=== PATIENT | male | born 1960 | race Caucasian/White ===

== ENCOUNTER 2020-01-26 09:12 | Emergency (ER) | payer OTHER, SELFPAY ==
[2020-01-26 09:17] VITALS: BP 142/75; PULSE 69; RESP 18; TEMP 37; O2SAT 99; BMI 25.8
--- NOTE | 2020-01-26 09:37 | ED.ABDPAIN ---
HPI - Abdominal Pain General Chief Complaint: Abdominal Pain Stated Complaint: abd pain Time Seen by Provider: 01/26/20 09:20 Source: patient Mode of arrival: ambulatory Limitations: no limitations History of Present Illness HPI narrative: 59-year-old male with a past medical history of hypertension, hyperlipidemia, renal colic, NM, substance abuse on suboxone here with right-sided abdominal pain for 2 days. No nausea, vomiting, diarrhea, urinary symptoms, fevers or chills. MD elicited complaint: abdominal pain Pertinent past history: kidney stones Onset (ago): day(s) Pain Consistency: constant Location: RUQ and RLQ Severity: mild Quality: sharp Radiation: none Migration to: no migration Exacerbating factors: nothing Relieving factors: nothing Associated symptoms: denies other symptoms Related Data Previous Rx's Medication Instructions Recorded hydrocodone-acetaminophen 1 tab PO Q8H PRN #8 tab 01/26/20 tamsulosin [Flomax] 0.4 mg PO DAILY #20 cap 01/26/20 Allergies Allergy/AdvReac Type Severity Reaction Status Date / Time ibuprofen [IBUPROFEN] Allergy Unknown UPSET Verified 01/26/20 09:38 STOMACH Review of Systems Review of Systems Yes all other systems are reviewed and are negative Constitutional: Reports no additional constitutional complaints, Denies body ache(s), Denies chills, Denies fever(s), Denies headache(s) and Denies weakness Eyes: Reports no additional eye complaints and Denies change in vision Reports system reviewed and no additional complaints, except as documented, Denies dizziness, Denies headache(s), Denies nasal congestion, Denies nasal discharge and Denies neck pain Cardiovascular: Reports no additional cardiovascular complaints, Denies chest pain, Denies leg edema and Denies dyspnea Respiratory: Reports no additional respiratory complaints, Denies cough and Denies dyspnea Gastrointestinal: Reports no additional gastrointestinal complaints, Reports abdominal pain, Denies diarrhea, Denies nausea and Denies vomiting Genitourinary: Denies urinary incontinence Musculoskeletal: Reports no additional musculoskeletal complaints, Denies back pain, Denies arthralgias, Denies joint swelling, Denies neck pain, Denies numbness and Denies tingling Skin/Breast: Reports system reviewed and no additional complaints, except as docu and Denies rash Reports system reviewed and no additional complaints, except as documented, Denies Abnormal speech present, Denies dizziness, Denies headache(s), Denies numbness, Denies tingling and Denies weakness Physical Exam Vital Signs: Vital Signs: Last Vital Signs Temp 98.1 F 01/26/20 11:49 Pulse 61 01/26/20 11:49 Resp 16 01/26/20 11:49 BP 125/79 01/26/20 11:49 Pulse Ox 98 01/26/20 11:49 Body Mass Index 25.8 Const: General: cooperative, healthy appearing, comfortable and no acute distress Orientation/consciousness: patient oriented x3 Limitations: no limitations HENMT: Head: Yes normal to inspection Ears: hearing grossly normal bilaterally General nose exam: Normal external nose present Face and sinus: Yes normal facial exam Mouth: Normal oral and palatal mucosa present Throat: Yes posterior oropharynx normal Eyes: General: appearance normal, both eyes and all related structures Pupils: Equal, round and reactive pupils present Neck: Neck: Yes normal visual inspection Chest: Chest palpation & inspection: normal inspection of the chest Resp: Effort & Inspection: normal respiratory effort Auscultation: clear to auscultation bilaterally Cardio: Rate: regular rate Rhythm: regular rhythm Peripheral pulses: Peripheral pulses 2+ throughout GI: Inspection: Yes normal to inspection Palpation (GI): Soft to palpation, Tenderness to palpation present (GI) ( mild tenderness to the right upper and right lower quadrant ) with no rebound tenderness and no guarding Auscultation: normal bowel sounds Back/Spine/Pelvis: Thoracic/Lumbar Spine: thoracic and lumbar spine normal to inspection Skin: General skin exam: no rashes or lesions noted Neuro: General: patient oriented x3, no focal motor deficits and normal sensation to monofilament Cranial nerves: Yes Equal, round and reactive pupils present Cognition (Neuro): normal cognition Speech: No Abnormal speech present Gait exam (Neuro): Normal gait present Motor exam (neuro): 5/5 motor strength present throughout Extrem: General: Yes normal to inspection Course Course Course Narrative: 59 year-old male here with right upper and right lower quadrant abdominal pain since last evening with no other associated symptoms. Will check labs, UA. Place PIV and give normal saline bolus and IV analgesia. Patient will likely need additional imaging. 1230- CT shows 2 right distal ureteral stones 2 x 4 mm. Mild right distal ureteral dilation. Labs reviewed and unremarkable. UA shows no signs of infection. Pain is currently controlled. Will discharge patient home with Urology follow-up, recommend increase fluids, start Flomax with small course of Vicodin. Discussed with patient that he should hold his Suboxone and call his clinic to inform them what is going on. reviewed worrisome signs and symptoms when to return to the emergency department. Comfortable discharge home. MDM - Abdominal Pain MDM Narrative Medical decision making narrative: Renal colic, cholecystitis, gallstones, acute appendicitis Medical Records Attestation: I reviewed the patient's medical records. Lab Data Attestation: I reviewed the patient's lab results. Result diagrams: 01/26/20 09:41 01/26/20 09:40 Labs: Lab Results 01/26/20 01/26/20 01/26/20 Range/Units 09:40 09:40 09:41 WBC 7.6 (4.8-10.8) X10*3/uL RBC 4.33 L (4.60-5.80) X10*6/uL Hgb 13.6 L (14.0-18.0) g/dl Hct 41.2 L (42-52) % MCV 95.2 (80-98) fL MCH 31.4 (27.0-33.0) pg MCHC 33.0 (31.0-36.0) g/dl RDW 12.9 (11.0-16.0) % Plt Count 155 L (160-400) X10*3/uL MPV 11.5 (9.4-12.4) fL Immature Gran % (Auto) 0.4 (0.0-0.4) % Neut % (Auto) 59.0 (45-73) % Lymph % (Auto) 27.0 (20-40) % Glasscock % (Auto) 10.4 (2-11) % Eos % (Auto) 2.8 (0-4) % Baso % (Auto) 0.4 (0-2) % Lymph # (Auto) 2.1 (1.2-4.9) X10*3/uL Glasscock # (Auto) 0.8 (0.1-1.2) X10*3/uL Eos # (Auto) 0.2 (0.0-0.4) X10*3/uL Baso # (Auto) 0.0 (0.0-0.2) X10*3/uL Abs Immat Gran (auto) 0.03 (0.00-0.03) X10*3/uL Absolute Neuts (auto) 4.5 (2.0-8.3) X10*3/uL Absolute Nucleated RBC 0.000 (0.0-0.012) X10*3/uL Nucleated RBC % (auto) 0.0 (0.0-0.2) /100WBC PT 11.6 (10.8-13.0) SEC INR 1.0 (0.9-1.1) Sodium 138 (135-145) mmol/L Potassium 4.7 (3.3-5.1) mmol/l Chloride 104 (96-108) mmol/L Carbon Dioxide 26 (22-29) mmol/L Anion Gap 13 (12-20) BUN 19 H (9-16) mg/dL Creatinine 0.96 (0.5-1.4) mg/dL Estim Creat Clear Calc 84.4 Estimated GFR > 60 Random Glucose 110 (60-115) mg/dL Calcium 8.7 (8.4-10.2) mg/dL Magnesium 1.8 (1.6-2.6) mg/dL Total Bilirubin 0.4 (0.0-1.0) mg/dL Direct Bilirubin 0.2 (0.0-0.5) mg/dL AST 14 (5-37) U/L ALT 15 (0-40) U/L Alkaline Phosphatase 83 (39-117) U/L Total Protein 6.2 L (6.5-8.0) g/dL Albumin 4.0 (3.5-5.0) g/dL Lipase 84 H (8-78) U/L Urine Color Urine Appearance Urine pH (5.0-8.0) Ur Specific [place] (1.005-1.025) Urine Protein (NEG-TRACE) MG/DL Urine Glucose (UA) (NEG) MG/DL Urine Ketones (NEG) MG/DL Urine Blood (NEG) Urine Nitrite (NEG) Ur Leukocyte Esterase (NEG) Urine RBC (0) /HPF Urine WBC (0-4) /HPF Ur Squamous Epith Cells /LPF Urine Crystals /LPF Urine Bacteria /LPF 01/26/20 Range/Units 10:06 WBC (4.8-10.8) X10*3/uL RBC (4.60-5.80) X10*6/uL Hgb (14.0-18.0) g/dl Hct (42-52) % MCV (80-98) fL MCH (27.0-33.0) pg MCHC (31.0-36.0) g/dl RDW (11.0-16.0) % Plt Count (160-400) X10*3/uL MPV (9.4-12.4) fL Immature Gran % (Auto) (0.0-0.4) % Neut % (Auto) (45-73) % Lymph % (Auto) (20-40) % Glasscock % (Auto) (2-11) % Eos % (Auto) (0-4) % Baso % (Auto) (0-2) % Lymph # (Auto) (1.2-4.9) X10*3/uL Glasscock # (Auto) (0.1-1.2) X10*3/uL Eos # (Auto) (0.0-0.4) X10*3/uL Baso # (Auto) (0.0-0.2) X10*3/uL Abs Immat Gran (auto) (0.00-0.03) X10*3/uL Absolute Neuts (auto) (2.0-8.3) X10*3/uL Absolute Nucleated RBC (0.0-0.012) X10*3/uL Nucleated RBC % (auto) (0.0-0.2) /100WBC PT (10.8-13.0) SEC INR (0.9-1.1) Sodium (135-145) mmol/L Potassium (3.3-5.1) mmol/l Chloride (96-108) mmol/L Carbon Dioxide (22-29) mmol/L Anion Gap (12-20) BUN (9-16) mg/dL Creatinine (0.5-1.4) mg/dL Estim Creat Clear Calc Estimated GFR Random Glucose (60-115) mg/dL Calcium (8.4-10.2) mg/dL Magnesium (1.6-2.6) mg/dL Total Bilirubin (0.0-1.0) mg/dL Direct Bilirubin (0.0-0.5) mg/dL AST (5-37) U/L ALT (0-40) U/L Alkaline Phosphatase (39-117) U/L Total Protein (6.5-8.0) g/dL Albumin (3.5-5.0) g/dL Lipase (8-78) U/L Urine Color YELLOW Urine Appearance CLEAR Urine pH 5.5 (5.0-8.0) Ur Specific [place] 1.025 (1.005-1.025) Urine Protein NEG (NEG-TRACE) MG/DL Urine Glucose (UA) NEG (NEG) MG/DL Urine Ketones NEG (NEG) MG/DL Urine Blood 2+ H (NEG) Urine Nitrite NEG (NEG) Ur Leukocyte Esterase NEG (NEG) Urine RBC 5-9 H (0) /HPF Urine WBC 0-2 (0-4) /HPF Ur Squamous Epith Cells NONE /LPF Urine Crystals TRACE /LPF Urine Bacteria NONE /LPF Imaging Data CT scan - abdomen: Radiologist's impression: EXAMINATION: CT ABDOMEN AND PELVIS WITHOUT CONTRAST CLINICAL INFORMATION: Hematuria. Right-sided abdominal pain. COMPARISON: None TECHNIQUE: Multidetector volumetric imaging was performed from the superior aspect of the liver through the pubic symphysis. Sagittal and coronal reformatted images were obtained on the technologist's workstation. This CT examination was performed using dose optimization techniques as appropriate, variously including the following: *Automated exposure control *Adjustment of mA and/or kV according to patient size (this includes techniques or standardized protocols for targeted exams where dose is matched to indication/reason for exam; i.e. extremities or head) *Use of iterative reconstruction technique DLP: 668 mGy-cm FINDINGS: LUNG BASES: The visualized lung bases are unremarkable. LIVER, GALLBLADDER, AND BILIARY TREE: The liver is normal in size, shape, and attenuation. No focal hepatic lesion or biliary ductal dilatation is present. The gallbladder is unremarkable with no evidence of radiopaque gallstones, gallbladder wall thickening, or obvious pericholecystic inflammatory changes. PANCREAS: Unremarkable. SPLEEN: Unremarkable. ADRENAL GLANDS: Unremarkable. KIDNEYS AND URETERS: There are small bilateral renal stones. Largest stone measures 4 mm in the lower pole of the right kidney. No hydronephrosis is seen. There is mild right distal ureteral dilatation. There are 2 adjacent stones seen in the right distal ureter measuring 2 x 4 mm. No left ureteral stone is seen. BLADDER: Unremarkable. GASTROINTESTINAL TRACT: There is diverticulosis of the colon. The small and large bowel are otherwise unremarkable. The appendix is unremarkable. ABDOMINAL WALL: There is an umbilical hernia containing fat. LYMPH NODES: Normal. VASCULAR: Unremarkable. PELVIC VISCERA: The prostate gland is slightly enlarged measuring 4 1/2 OSSEOUS STRUCTURES: There are degenerative changes of the spine. CT/CT abdomen pelvis wo con IMPRESSION: Bilateral small renal stones, largest measuring 4 mm in the lower pole of the right kidney. Two adjacent right distal ureteral stones measuring 2 x 4 mm. Mild right distal ureteral dilatation. No hydronephrosis. Mild diverticulosis of the colon. Discharge Plan Discharge Clinical Impression: Renal colic on right side Patient Disposition: Home, Self-Care Instructions: Renal Colic (ED) Additional Instructions: Drink lots of fluids Follow-up with the urologist in a few days if your pain continues We are prescribing you a very small amount of narcotic pain medicine. Do not take this with her Suboxone. Please call your Suboxone clinic and let them know what is going on. Prescriptions: New tamsulosin [Flomax] 0.4 mg capsule 0.4 mg PO DAILY Qty: 20 RF: 0 hydrocodone-acetaminophen 5-300 mg tablet 1 tab PO Q8H PRN (Reason: pain) Qty: 8 RF: 0 Referrals: Meng Osorio III, MD [Physician] - 2 days Interventions: ED Discharge Assessment Last Done: 01/26/20 12:44 Discharge Date/Time: 01/26/20 12:57 [facility] Past Medical History Attestation statement: The following information was validated with the patient. Source: obtained from family and nursing notes reviewed Medical History (Updated 01/26/20 @ 12:29 by Violetta Chapman NP) High cholesterol Hypertension Myocardial infarct Renal colic Substance abuse Social History Social History Alcohol intake: current Alcohol intake frequency: 0-2 drinks per day Alcohol type: beer Smoking Status: Current some day smoker Use of substances other than those prescribed or required for medical reasons: No Advance Directives: No Advance Directives Information Provided: Yes
[2020-01-26] MEDS: Morphine Sulfate 4 MG/ML CARTRIDGE IVPUSH (09:38)
[2020-01-26] MEDS: 0.9 % Sodium Chloride 1,000 ML 999 ML IV (09:39)
[2020-01-26 09:45] LABS: MANUAL DIFF FLAG NO
[2020-01-26 09:48] LABS: Basophils Percent Auto 0.4 % (0-2); Eosinophils Absolute Auto 0.2 X10*3/uL (0.0-0.4); Eosinophils Percent Auto 2.8 % (0-4); Hematocrit 41.2 % (42-52); Hemoglobin 13.6 g/dl (14.0-18.0); Imm Gran Abs Auto 0.03 X10*3/uL (0.00-0.03); Imm Gran Pct Auto 0.4 % (0.0-0.4); Lymphocytes Absolute Auto 2.1 X10*3/uL (1.2-4.9); Mean Corpuscular Hemoglobin 31.4 pg (27.0-33.0); Mean Corpuscular Volume 95.2 fL (80-98); Mean Platelet Volume 11.5 fL (9.4-12.4); Monocytes Absolute Auto 0.8 X10*3/uL (0.1-1.2); Monocytes Percent Auto 10.4 % (2-11); Neutrophils Absolute Auto 4.5 X10*3/uL (2.0-8.3); Platelet Count 155 X10*3/uL (160-400); Red Blood Count 4.33 X10*6/uL (4.60-5.80); Red Cell Distribution Width 12.9 % (11.0-16.0); White Blood Count 7.6 X10*3/uL (4.8-10.8)
[2020-01-26 09:54] LABS: Prothrombin Time 11.6 SEC (10.8-13.0)
[2020-01-26 10:11] LABS: Glucose Urine UA NEG (NEG); Leukocyte Esterase Urine NEG (NEG); Nitrite Urine NEG (NEG); PH 5.5 (5.0-8.0); Specific Gravity - Urine 1.025 (1.005-1.025); Urine Blood 2+ (NEG); Urine Ketones NEG (NEG); Urine Protein NEG (NEG-TRACE)
[2020-01-26 10:12] LABS: Appearance Urine CLEAR; Color Urine YELLOW
--- NOTE | 2020-01-26 10:17 | CT_ITS ---
EXAMINATION: CT ABDOMEN AND PELVIS WITHOUT CONTRAST CLINICAL INFORMATION: Hematuria. Right-sided abdominal pain. COMPARISON: None TECHNIQUE: Multidetector volumetric imaging was performed from the superior aspect of the liver through the pubic symphysis. Sagittal and coronal reformatted images were obtained on the technologist's workstation. This CT examination was performed using dose optimization techniques as appropriate, variously including the following: *Automated exposure control *Adjustment of mA and/or kV according to patient size (this includes techniques or standardized protocols for targeted exams where dose is matched to indication/reason for exam; i.e. extremities or head) *Use of iterative reconstruction technique DLP: 668 mGy-cm FINDINGS: LUNG BASES: The visualized lung bases are unremarkable. LIVER, GALLBLADDER, AND BILIARY TREE: The liver is normal in size, shape, and attenuation. No focal hepatic lesion or biliary ductal dilatation is present. The gallbladder is unremarkable with no evidence of radiopaque gallstones, gallbladder wall thickening, or obvious pericholecystic inflammatory changes. PANCREAS: Unremarkable. SPLEEN: Unremarkable. ADRENAL GLANDS: Unremarkable. KIDNEYS AND URETERS: There are small bilateral renal stones. Largest stone measures 4 mm in the lower pole of the right kidney. No hydronephrosis is seen. There is mild right distal ureteral dilatation. There are 2 adjacent stones seen in the right distal ureter measuring 2 x 4 mm. No left ureteral stone is seen. BLADDER: Unremarkable. GASTROINTESTINAL TRACT: There is diverticulosis of the colon. The small and large bowel are otherwise unremarkable. The appendix is unremarkable. ABDOMINAL WALL: There is an umbilical hernia containing fat. LYMPH NODES: Normal. VASCULAR: Unremarkable. PELVIC VISCERA: The prostate gland is slightly enlarged measuring 4 1/2 OSSEOUS STRUCTURES: There are degenerative changes of the spine. CT/CT abdomen pelvis wo con IMPRESSION: Bilateral small renal stones, largest measuring 4 mm in the lower pole of the right kidney. Two adjacent right distal ureteral stones measuring 2 x 4 mm. Mild right distal ureteral dilatation. No hydronephrosis. Mild diverticulosis of the colon.
[2020-01-26 10:21] LABS: Urine Talc Crystals TRACE /LPF; WBC Urine 0-2 /HPF (0-4)
[2020-01-26 10:22] LABS: Alanine Aminotransferase 15 U/L (0-40); Alkaline Phosphatase 83 U/L (39-117); Anion Gap 13 (12-20); Aspartate Amino Transferase 14 U/L (5-37); Bilirubin Direct 0.2 mg/dL (0.0-0.5); Bilirubin Total 0.4 mg/dL (0.0-1.0); Blood Urea Nitrogen 19 mg/dL (9-16); Calcium 8.7 mg/dL (8.4-10.2); Carbon Dioxide 26 mmol/L (22-29); Chloride 104 mmol/L (96-108); Creatinine Clr Calc Pharmacy 84.4; Estimated Glomerular Filt Rate > 60; Glucose Random 110 mg/dL (60-115); Magnesium 1.8 mg/dL (1.6-2.6); Potassium 4.7 mmol/l (3.3-5.1); Sodium 138 mmol/L (135-145); Total Protein 6.2 g/dL (6.5-8.0)
[2020-01-26 10:36] LABS: Lipase 84 U/L (8-78)
[2020-01-26 11:49] VITALS: BP 125/79; PULSE 61; RESP 16; TEMP 36.7; O2SAT 98
--- NOTE | 2020-01-26 11:50 | PC.NURSE ---
pt c/o 8/10 r flank pain. worse with movement. no active vomiting. skin pwd. no grimace. awaitsct reading. pt has been ambulatory, steady on feet. is aware of npo status.
== END 2020-01-26 12:57 | disposition home or self-care (01) ==
PROVIDERS: Nurse Practitioner Family; Emergency Provider Emergency Medicine; PCP Internal Medicine
DX: N23 Unspecified renal colic (principal); I10 Essential (primary) hypertension; F17.200 Nicotine dependence, unspecified, uncomplicated; Z71.6 Tobacco abuse counseling; Z79.899 Other long term (current) drug therapy
CPT/HCPCS: 36415; 74176; 80048; 80076; 81001; 83690; 83735; 85025; 85610; 96361; 96374; 99284; J2270

== ENCOUNTER 2020-11-18 09:58 | Emergency (ER) | payer OTHER, SELFPAY ==
[2020-11-18 10:21] VITALS: BP 136/73; PULSE 66; RESP 16; TEMP 36.6; O2SAT 96; BMI 31.9
--- NOTE | 2020-11-18 10:44 | ED_ITS ---
HPI - Eye Problem General Chief complaint: Eye Problems Stated complaint: eye problem Time Seen by Provider: 11/18/20 10:20 Source: patient Limitations: no limitations History of Present Illness HPI Narrative: Patient states he was working outside yesterday moving some brush and some sawdust got into his left eye. Patient was wearing protective eye wear at that time. Patient now having pain in his left eye. Patient states the eye is irritated and he is unsure if there was any foreign body in there and very watery. No other complaints this time. Symptoms mild to moderate. Pain is 6/10. Related Data Previous Rx's Medication Instructions Recorded hydrocodone 5 mg-acetaminophen 300 1 tab PO Q8H PRN #8 tab 01/26/20 mg tablet tamsulosin 0.4 mg capsule (Flomax) 0.4 mg PO DAILY #20 cap 01/26/20 sulfacetamide sodium 10 % eye 2 drp OPHTHALMIC-LEFT Q4H 5 Days 11/18/20 drops (Bleph-10) #5 ml Allergies Allergy/AdvReac Type Severity Reaction Status Date / Time ibuprofen [IBUPROFEN] Allergy Unknown UPSET Verified 01/26/20 09:38 STOMACH Review of Systems Constitutional: Constitutional: Denies chills and Denies fever(s) Eyes: Eyes: Denies blurry vision, Denies diplopia, Reports eye discharge, Denies floaters, Reports irritation and Denies loss of vision ENT: Denies vertigo, Denies dizziness, Denies nasal congestion and Denies sore throat Gastrointestinal: Gastrointestinal: Denies nausea and Denies vomiting Neurologic: Denies vertigo, Denies dizziness and Denies loss of vision [facility] Past Medical History Attestation statement: The following information was validated with the patient. Medical History High cholesterol Hypertension Myocardial infarct Renal colic Substance abuse Social History Social History Alcohol intake: current Alcohol intake frequency: 0-2 drinks per day Alcohol type: beer Advance Directives: No Advance Directives Information Provided: No Physical Exam Vital Signs: Vital Signs: Last Vital Signs Temp 97.9 F 11/18/20 10:21 Pulse 66 11/18/20 10:21 Resp 16 11/18/20 10:21 BP 136/73 09/02/21 10:21 Pulse Ox 96 11/18/20 10:21 Body Mass Index 31.9 vital signs have been reviewed as normal and appeared to be correct. Blood pressure normal. Heart rate normal. Respiration rate normal. Temperature normal. Oxygen saturation normal. Appearance: Alert. Oriented X3. No acute distress. Head: Normal external exam. Normocephalic. Atraumatic. Eyes: PERRLA. EOMI. Left eye sclera slightly injected no foreign bodies visualized. ENT: Pharynx normal. Uvula midline. Moist mucous membranes. CVS: Heart regular rate and rhythm no murmurs and rubs Respiratory: Breath sounds are clear to auscultation bilaterally. No accessory muscle use noted. Back: Full range of motion noted. Skin: Skin warm and dry. Normal skin color. Normal skin turgor. No rashes/les ions/lacerations noted. Extremities: No lower extremity edema. Extremities exhibit normal range of motion. Extremities nontender. Neuro: Oriented X 3. No motor deficit. No sensory deficit. Reflexes normal. Course Course Course Narrative: Left eye corneal abrasion Left eye conjunctivitis Left eye foreign body Positive fluorescein stain at 9:00 a.m. corneal abrasion to the left eye is noted with the Wood's lamp fluorescein Patient advised follow-up with Ophthalmology symptoms continue patient placed on Bleph 10 Discharge Plan Discharge Clinical Impression: Corneal abrasion Patient Disposition: Home, Self-Care Instructions: Corneal Abrasion (ED) Additional Instructions: If symptoms continue follow-up with ophthalmology Medication as directed Take [id number] Tylenol for pain. Prescriptions: New sulfacetamide sodium [Bleph-10] 10 % drops 2 drp ophthalmic-Left Q4H 5 Days Qty: 5 RF: 0 No Action tamsulosin [Flomax] 0.4 mg capsule 0.4 mg PO DAILY Qty: 20 RF: 0 hydrocodone-acetaminophen 5-300 mg tablet 1 tab PO Q8H PRN (Reason: pain) Qty: 8 RF: 0 Referrals: Reilly Flores [Physician] - 2 days (Left-sided corneal abrasion)
[2020-11-18] MEDS: Fluorescein Sodium STRIP 1 STRIP EYE-BOTH (10:53)
[2020-11-18] MEDS: Tetracaine HCl/PF 0.5% Oph Sol 4 ML DROPS 3 DROP EYE-BOTH (10:53)
== END 2020-11-18 11:03 | disposition home or self-care (01) ==
PROVIDERS: Emergency Provider Emergency Medicine; PCP Internal Medicine
DX: S05.52XA Penetrating wound with foreign body of left eyeball, initial encounter (principal); T15.02XA Foreign body in cornea, left eye, initial encounter; Y33.XXXA Other specified events, undetermined intent, initial encounter; Y93.9 Activity, unspecified; Y92.9 Unspecified place or not applicable; Y99.9 Unspecified external cause status
CPT/HCPCS: 65222; 99283

== ENCOUNTER 2023-05-12 20:17 | Emergency (ER) | payer OTHER, SELFPAY ==
[2023-05-12] VITALS (8 sets, daily range): BP systolic 126–164; BP diastolic 70–98; PULSE 75–88; RESP 14–18; TEMP 36.7; O2SAT 93–98; BMI 41.9
--- NOTE | 2023-05-12 | ECG_ITS ---
Test Reason : CP Blood Pressure : / mmHG Vent. Rate : 078 BPM Atrial Rate : 078 BPM P-R Int : 158 ms QRS Dur : 088 ms QT Int : 390 ms P-R-T Axes : 047 001 -14 degrees QTc Int : 444 ms Normal sinus rhythm Nonspecific ST elevation high lateral leads T-wave inversion in Inferior leads Nonspecific ST abnormality When compared with ECG of 12-MAY-2023 20:27, ST less depressed in Inferior leads Referred By: Erica Escalante Electronically Signed By:ALEXIS ALAS MD
--- NOTE | ~2023-05-12 | XR_ITS ---
EXAMINATION: XR CHEST CLINICAL INFORMATION: Chest pain COMPARISON: Chest radiograph from 09/02/2011 TECHNIQUE: Frontal view of the chest was obtained. FINDINGS: Bilateral low lung volumes. Interstitial prominence which may reflect increased pulmonary vasculature versus infectious/inflammatory etiology. No pneumothorax. Trachea is midline. Cardiac mediastinal silhouette is not enlarged. No large pleural effusion. Osseous structures are intact. Soft tissues are unremarkable. XR/XR chest 1V IMPRESSION: 1. Bilateral low lung volumes. 2. Interstitial prominence which may reflect increased pulmonary vasculature versus infectious/inflammatory etiology.
--- NOTE | 2023-05-12 20:34 | ECG_ITS ---
Test Reason : CP Blood Pressure : / mmHG Vent. Rate : 076 BPM Atrial Rate : 076 BPM P-R Int : 160 ms QRS Dur : 090 ms QT Int : 390 ms P-R-T Axes : 036 000 -16 degrees QTc Int : 438 ms Normal sinus rhythm Nonspecific ST elevation Nonspecific ST depression When compared with ECG of 12-MAY-2023 20:43, No significant change was found Referred By: Erica Escalante Electronically Signed By:ALEXIS ALAS MD
--- NOTE | 2023-05-12 20:44 | ED.CHESTPAIN ---
HPI - Chest Pain General Chief Complaint: Chest Pain Stated Complaint: Chest Heaviness going down both arms Time Seen by Provider: 05/12/23 20:27 Source: patient and old records reviewed Mode of arrival: EMS Limitations: other (poor historian has changed the timeline of his drug use 3 times since arrival) History of Present Illness HPI narrative: 63 yo male with PMH of DM, HTN, [place] s/p PCI and stent 12 years ago at [facility] he doesn't remember much about it intermittently takes aspirin daily. He notes he has had central chest pain and heaviness radiating down both arms x 1 hour - he initially stated he sniffed cocaine last night then 5am and then admits it was this afternoon with heroin he thinks at 2pm. He was given aspirin 324 by EMS prior to arrival. He has not seen a area plant manager in years. He states that the pain is much better than it was when he arrived. He has also been using an OTC medication that contains ephedrine and has been sniffing that. He denies any viagra or cialis. Took his statin today. MD complaint: chest pain Pertinent past history: coronary artery disease and prior [place] Onset (ago): hour(s) (1) Timing of current episode: constant Prior episodes: No Onset: during rest Pain location: substernal Pain radiation: right arm and left arm Severity: moderate Pain scale (0-10): 6 Quality: heaviness Relieving factors: nothing Exacerbating factors: exertion Context: other (sniffed heroin and cocaine) Associated symptoms: nausea, diaphoresis and dyspnea Treatment prior to arrival: aspirin (324mg of aspirin with EMS) Related Data Previous Rx's Medication Instructions Recorded hydrocodone 5 mg-acetaminophen 300 1 tab PO Q8H PRN pain #8 tabs 01/26/20 mg tablet tamsulosin 0.4 mg capsule (Flomax) 0.4 mg PO DAILY #20 caps 01/26/20 sulfacetamide sodium 10 % eye 2 drp ophthalmic-Left Q4H 5 days 11/18/20 drops (Bleph-10) #5 mL Allergies Allergy/AdvReac Type Severity Reaction Status Date / Time No Known Allergies Allergy Verified 05/12/23 20:34 Review of Systems Review of Systems: Constitutional : No Weight loss, No Fever, No Chills ENT/Mouth : No sore throat, No Rhinorrhea Eyes: No Eye Pain, No Swelling Cardiovascular : pos Chest Pain, pos SOB, no Dyspnea on Exertion, No Orthopnea, No Edema, No Palpitations Respiratory : No Cough, No Sputum Gastrointestinal : no Nausea, No Vomiting, No Diarrhea, No abdominal Pain, No Hematochezia, No Melena Genitourinary : No Dysuria, No Urinary Frequency Musculoskeletal : No joint pain, No Myalgias, No Joint Swelling Skin : No Skin Lesions, No rash Neuro : No Weakness, No Numbness, No Dizziness, No Headache Psych : No Anxiety/Panic, No Depression All other systems reviewed and are negative [facility] Past Medical History Attestation statement: The following information was validated with the patient. Source: old records reviewed Medical History Myocardial infarct Substance abuse Renal colic High cholesterol Hypertension Social History Social History (Updated 05/12/23 @ 21:21 by Erica Escalante DO) Alcohol intake: current Alcohol intake frequency: holidays/special occasions only Alcohol type: beer Patient Tobacco Use Status: Former Tobacco user Use of substances other than those prescribed or required for medical reasons: No Substance Use Type: Crack/Cocaine and Heroin Advance Directives: No Advance Directives Information Provided: No Physical Exam Vital Signs: Vital Signs: Last Vital Signs Temp 98.0 F 05/12/23 20:37 Pulse 80 05/12/23 23:10 Resp 14 05/12/23 23:10 BP 158/88 H 05/12/23 23:10 Pulse Ox 95 05/12/23 23:10 O2 Del Method Nasal Cannula 05/12/23 23:10 O2 Flow Rate 2 05/12/23 23:10 BMI result Body Mass Index 41.9 Appearance: Alert. Oriented X3. mild acute distress. Eyes: Pupils equal, round and reactive to light. ENT: Pharynx normal. Neck: Normal inspection. Neck supple. CVS: Normal heart rate and rhythm. Pulses normal. Respiratory: No respiratory distress. Breath sounds normal. Abdomen: Soft and non-tender. Skin: Skin warm and clammy. pale skin color. Normal skin turgor. Extremities: No lower extremity edema. Neuro: Oriented X 3. No motor deficit. No sensory deficit. Course Course Course Narrative: message sent to Cardiology 857pm Dr. Yañez no call back from cardiology will consult [facility] given dynamic changes on repeat EKGs and clinical presentation concern for ACS spoke to Dr. Paez from [facility] 920pm not a STEMI but start with heparin and nitro Reevaluation(s) Reevaluation #1: patient still having pain with nitro will order a drip at this time he had no improvement with morphine either he appears somewhat sedated about 1 hour after the morphine which is new. he does have a bag at bedside RN to remove it cardiology Dr. Yañez called back 1020pm would recommend transfer to [facility] if he is still having pain at this time 1021pm. I did order a nitro gtt. I did notify cardiology at [facility] Dr. Paez - continue with nitro and morphine for pain. if no improvement call to transfer to [facility] Reevaluation #2: pain still 3-4/10 on nitro gtt but improved has no response to morphine BP 126/79 trop at 1.5 hour bogdan over delta 6.7 to 47.6 at this time will call [facility] for [facility] transfer Reevaluation #3: call to [facility] 1149pm accepted to [facility] Dr. Daly 1201am Medications Administered Generic Name Dose Route Start Last Admin Trade Name Freq PRN Reason Stop Dose Admin Heparin Sodium/Sodium Chloride 25,000 unit in 250 mls @ 0 mls/hr 05/12/23 21:30 05/12/23 22:28 Heparin Sodium,Porcine/1/2ns IVCONT 10 units/kg/hr .Q0M SALLIE 12.5 mls/hr Administration Protocol Per Protocol Nitroglycerin/Dextrose 100 mg in 250 mls @ 0 mls/hr 05/12/23 22:30 05/12/23 23:10 Nitroglycerin/D5w IVCONT 20 mcg/min .Q0M SALLIE 3 mls/hr Administration Protocol Per Protocol Nitroglycerin 0.4 mg 05/12/23 21:17 05/12/23 21:48 Nitroglycerin 0.4 Mg Tab.Subl SUBLINGUAL 0.4 mg Q5MX3 PRN Administration Chest Pain Discontinued Medications Generic Name Dose Route Start Last Admin Trade Name Freq PRN Reason Stop Dose Admin Heparin Sodium (Porcine) 4,000 unit 05/12/23 21:17 05/12/23 21:29 Heparin Sodium,Porcine 5,000 Unit/Ml Vial IVPUSH 05/12/23 21:18 4,000 unit ONCE ONE Administration Morphine Sulfate 4 mg 05/12/23 20:59 05/12/23 21:12 Morphine Sulfate 4 Mg/Ml Cartridge IVPUSH 05/12/23 21:00 4 mg ONCE ONE Administration Protocol Medical Decision Making Medical Decision Making [facility] Narrative: 63 yo male with PMH of DM, HTN, [place] s/p PCI and stent 12 years ago at [facility] here with chest pain and clamminess with EKG changes after using cocaine, ephedrine and heroin (sniffing) he was given aspirin by EMS. Given EKG changes and his appearance will discuss with cardiology. He has distal pulses intact no pain to his back doubt dissection. Will give IV morphine and review again that he did not use cialis or viagra prior to nitro as he has changed his story multiple times. Likely admission vs transfer. Planned repeat troponin. Differential Diagnosis Differential Diagnoses: The differential diagnosis associated with the presentation includes ACS, NSTEMI, drug abuse, coronary spasm Admission/Observation Consideration of admission/observation: Escalation of care including admission/observation considered given chest pain, EKG changes, clinical presentation needs further workup Consult Healthcare Provider Management of the patient was discussed with: Drug Abuse Counselor (cardiology Dr. Paez) Lab Data [facility] Lab Attestation statement: I reviewed the patient's lab results. 05/12/23 21:51 05/12/23 20:59 Labs: Lab Results 05/12/23 05/12/23 05/12/23 Range/Units 20:59 21:50 21:51 WBC 7.8 9.5 (4.8-10.8) X10*3/uL RBC 4.62 4.31 L (4.60-5.80) X10*6/uL Hgb 13.3 L 12.5 L (14.0-18.0) g/dl Hct 40.9 L 38.0 L (42.0-52.0) % MCV 88.5 88.2 (80.0-98.0) fL MCH 28.8 29.0 (27.0-33.0) pg MCHC 32.5 32.9 (31.0-36.0) g/dl RDW 14.1 13.8 (11.0-16.0) % Plt Count 168 165 (160-400) X10*3/uL MPV 10.3 10.1 (9.4-12.4) fL Immature Gran % (Auto) 1.8 H (0.0-0.4) % Neut % (Auto) 67.5 (45-73) % Lymph % (Auto) 16.5 L (20-40) % Morrill % (Auto) 11.0 (2-11) % Eos % (Auto) 2.9 (0-4) % Baso % (Auto) 0.3 (0-2) % Lymph # (Auto) 1.3 (1.2-4.9) X10*3/uL Morrill # (Auto) 0.9 (0.1-1.2) X10*3/uL Eos # (Auto) 0.2 (0.0-0.4) X10*3/uL Baso # (Auto) 0.0 (0.0-0.2) X10*3/uL Abs Immat Gran (auto) 0.14 H (0.00-0.03) X10*3/uL Absolute Neuts (auto) 5.3 (2.0-8.3) x10*3/uL Absolute Nucleated RBC 0.000 0.000 (0.0-0.012) X10*3/uL Nucleated RBC % (auto) 0.0 0.0 (0.0-0.2) /100WBC PT 11.6 (11.1-13.3) SEC INR 1.0 (0.9-1.1) aPTT Heparin Protocol 34.8 L (53-77.9) SEC Sodium 141 (135-145) mmol/L Potassium 5.1 (3.3-5.1) mmol/L Chloride 101 (96-108) mmol/L Carbon Dioxide 30 H (22-29) mmol/L Anion Gap 15 (12-20) BUN 25 H (9-16) mg/dL Creatinine 1.10 (0.5-1.4) mg/dL Estim Creat Clear Calc 87.3 Estimated GFR > 60 Random Glucose 110 (60-115) mg/dL Calcium 9.3 D (8.4-10.2) mg/dL Magnesium 2.1 (1.6-2.6) mg/dL Total Bilirubin 0.7 (0.0-1.0) mg/dL Direct Bilirubin 0.2 (0.0-0.5) mg/dL AST 15 (5-37) U/L ALT 18 (0-40) U/L Alkaline Phosphatase 111 (39-117) U/L Troponin I High Sens 6.7 (<3.5-35.0) ng/L B-Natriuretic Peptide 28 (<100) pg/mL Total Protein 7.3 (6.5-8.0) g/dL Albumin 4.2 (3.5-5.0) g/dL Lipase 14 (8-78) U/L Urine Opiates Screen POSITIVE H (Not Detect) Urine Fentanyl Screen POSITIVE H (Not Detect) Ur Barbiturates Screen Not Detected (Not Detect) Ur Phencyclidine Scrn Not Detected (Not Detect) Ur Amphetamines Screen Not Detected (Not Detect) U Benzodiazepines Scrn Not Detected (Not Detect) Urine Cocaine Screen POSITIVE H (Not Detect) U Marijuana (THC) Screen Not Detected (Not Detect) Ethyl Alcohol < 10 mg/dL COVID-19 ([facility]IKA) Negative (Negative) COVID-19 Clin Com See Note 05/12/23 Range/Units 23:07 WBC (4.8-10.8) X10*3/uL RBC (4.60-5.80) X10*6/uL Hgb (14.0-18.0) g/dl Hct (42.0-52.0) % MCV (80.0-98.0) fL MCH (27.0-33.0) pg MCHC (31.0-36.0) g/dl RDW (11.0-16.0) % Plt Count (160-400) X10*3/uL MPV (9.4-12.4) fL Immature Gran % (Auto) (0.0-0.4) % Neut % (Auto) (45-73) % Lymph % (Auto) (20-40) % Morrill % (Auto) (2-11) % Eos % (Auto) (0-4) % Baso % (Auto) (0-2) % Lymph # (Auto) (1.2-4.9) X10*3/uL Morrill # (Auto) (0.1-1.2) X10*3/uL Eos # (Auto) (0.0-0.4) X10*3/uL Baso # (Auto) (0.0-0.2) X10*3/uL Abs Immat Gran (auto) (0.00-0.03) X10*3/uL Absolute Neuts (auto) (2.0-8.3) x10*3/uL Absolute Nucleated RBC (0.0-0.012) X10*3/uL Nucleated RBC % (auto) (0.0-0.2) /100WBC PT (11.1-13.3) SEC INR (0.9-1.1) aPTT Heparin Protocol (53-77.9) SEC Sodium (135-145) mmol/L Potassium (3.3-5.1) mmol/L Chloride (96-108) mmol/L Carbon Dioxide (22-29) mmol/L Anion Gap (12-20) BUN (9-16) mg/dL Creatinine (0.5-1.4) mg/dL Estim Creat Clear Calc Estimated GFR Random Glucose (60-115) mg/dL Calcium (8.4-10.2) mg/dL Magnesium (1.6-2.6) mg/dL Total Bilirubin (0.0-1.0) mg/dL Direct Bilirubin (0.0-0.5) mg/dL AST (5-37) U/L ALT (0-40) U/L Alkaline Phosphatase (39-117) U/L Troponin I High Sens 47.6 H D (<3.5-35.0) ng/L B-Natriuretic Peptide (<100) pg/mL Total Protein (6.5-8.0) g/dL Albumin (3.5-5.0) g/dL Lipase (8-78) U/L Urine Opiates Screen (Not Detect) Urine Fentanyl Screen (Not Detect) Ur Barbiturates Screen (Not Detect) Ur Phencyclidine Scrn (Not Detect) Ur Amphetamines Screen (Not Detect) U Benzodiazepines Scrn (Not Detect) Urine Cocaine Screen (Not Detect) U Marijuana (THC) Screen (Not Detect) Ethyl Alcohol mg/dL COVID-19 ([facility]A) (Negative) COVID-19 Clin Com Independent Interpretation I performed an independent interpretation of an: EKG and Plain X-Ray (no obvious edema) Interpretation: Rate: 73 Rhythm: NSR Mountain: left Normal P waves. Normal AYANA. Normal QRS complex. ST T wave : inverted t waves III and aVF, slight elevation aVL qTC: 431 prior studies: last EKG 2012 changed from prior The study has been interpreted contemporaneously by me. EKG #2 Rate: 78 Rhythm: NSR [place]: left Normal P waves. Normal AYANA. Normal QRS complex. ST T wave : slightly more elevation in I and aVL, ST depression aVF, inverted t waves III qTC: 444 prior studies: change from prior The study has been interpreted contemporaneously by me. EKG #3 Rate: 78 Rhythm: NSR [place]: left Normal P waves. Normal AYANA. Normal QRS complex. ST T wave : ST elevation aVL, inverted t waves III and ST depressions aVF qTC: 449 prior studies: consistent with prior EKG The study has been interpreted contemporaneously by me. EKG #4 Rate: 76 Rhythm: NSR [place]: left Normal P waves. Normal AYANA. Normal QRS complex. ST T wave : ST elevation more pronounced but not 1mm in I and aVL, ST depressions in III and aVF qTC: 438 prior studies: more dynamic changes noted The study has been interpreted contemporaneously by me. EKG #5 Rate: 75 Rhythm: NSR [place]: left Normal P waves. Normal AYANA. Normal QRS complex. ST T wave : ST elevated in aVL, slight elevation in I, ST depressions in III and aVF qTC: 435 prior studies: no change from priors The study has been interpreted contemporaneously by me. . Radiology Impression Discussion of test interpretation with radiology: I have reviewed the radiologist's reading. Independent Historian Clinical information obtained from an independent historian. History obtained from or confirmed by: EMS External Record Review External record reviewed: Inpatient record Critical Care Time Critical Care Time Critical Care Time: Yes Total Critical Care Time: 60 Attestation: repeat labs, medical consult, nitro gtt for pain, IV morphine for pain, ACS work up I attest to this time spent taking care of the patient Discharge Plan Discharge Clinical Impression: Active substance abuse, Elevated troponin, Acute electrocardiogram changes Chest pain Qualifiers: Chest pain type: precordial pain Qualified Code(s): R07.2 - Precordial pain Patient Disposition: [facility] Transfer Details: [facility] Prescriptions: No Action sulfacetamide sodium [Bleph-10] 10 % drops 2 drp ophthalmic-Left Q4H 5 Days Qty: 5 0RF tamsulosin [Flomax] 0.4 mg capsule 0.4 mg PO DAILY Qty: 20 0RF hydrocodone-acetaminophen 5-300 mg tablet 1 tab PO Q8H PRN (Reason: pain) Qty: 8 0RF
[2023-05-12 21:03] LABS: MANUAL DIFF FLAG NO
[2023-05-12 21:05] LABS: Basophils Percent Auto 0.3 % (0-2); Eosinophils Absolute Auto 0.2 X10*3/uL (0.0-0.4); Eosinophils Percent Auto 2.9 % (0-4); Hematocrit 40.9 % (42.0-52.0); Hemoglobin 13.3 g/dl (14.0-18.0); Imm Gran Abs Auto 0.14 X10*3/uL (0.00-0.03); Imm Gran Pct Auto 1.8 % (0.0-0.4); Lymphocytes Absolute Auto 1.3 X10*3/uL (1.2-4.9); Lymphocytes Percent Auto 16.5 % (20-40); Mean Corpuscular HGB Conc 32.5 g/dl (31.0-36.0); Mean Corpuscular Hemoglobin 28.8 pg (27.0-33.0); Mean Corpuscular Volume 88.5 fL (80.0-98.0); Mean Platelet Volume 10.3 fL (9.4-12.4); Monocytes Absolute Auto 0.9 X10*3/uL (0.1-1.2); Neutrophils Absolute Auto 5.3 x10*3/uL (2.0-8.3); Neutrophils Percent Auto 67.5 % (45-73); Platelet Count 168 X10*3/uL (160-400); Red Blood Count 4.62 X10*6/uL (4.60-5.80); Red Cell Distribution Width 14.1 % (11.0-16.0); White Blood Count 7.8 X10*3/uL (4.8-10.8)
[2023-05-12] MEDS: Morphine Sulfate 4 MG/ML CARTRIDGE IVPUSH (21:12)
[2023-05-12 21:14] LABS: Prothrombin Time 11.6 SEC (11.1-13.3)
--- NOTE | 2023-05-12 21:18 | MHC.EDTECH ---
Called Interventional cardiology @ [facility] @2109 per 's request. Received a call back @ 2110, took call right away.
[2023-05-12 21:20] LABS: Alanine Aminotransferase 18 U/L (0-40); Albumin Level 4.2 g/dL (3.5-5.0); Alkaline Phosphatase 111 U/L (39-117); Anion Gap 15 (12-20); Aspartate Amino Transferase 15 U/L (5-37); Bilirubin Direct 0.2 mg/dL (0.0-0.5); Bilirubin Total 0.7 mg/dL (0.0-1.0); Blood Urea Nitrogen 25 mg/dL (9-16); Calcium 9.3 mg/dL (8.4-10.2); Carbon Dioxide 30 mmol/L (22-29); Chloride 101 mmol/L (96-108); Creatinine Clr Calc Pharmacy 87.3; Estimated Glomerular Filt Rate > 60; Ethanol < 10 mg/dL; Glucose Random 110 mg/dL (60-115); Lipase 14 U/L (8-78); Magnesium 2.1 mg/dL (1.6-2.6); Potassium 5.1 mmol/L (3.3-5.1); Sodium 141 mmol/L (135-145); Total Protein 7.3 g/dL (6.5-8.0)
[2023-05-12 21:25] LABS: Troponin-I High Sensitivity 6.7 ng/L (<3.5-35.0)
[2023-05-12 21:28] LABS: COVID-19 Test Negative (Negative); IDNOW Serial# 08D9AD1C
[2023-05-12] MEDS: Heparin Sodium,Porcine 5,000 UNIT/ML VIAL 4000 UNIT IVPUSH (21:29)
[2023-05-12 21:44] LABS: PTT Heparin Drip 34.8 SEC (53-77.9)
[2023-05-12] MEDS: Nitroglycerin 0.4 MG TAB.SUBL SUBLINGUAL (21:48)
[2023-05-12 22:03] LABS: Hemoglobin 12.5 g/dl (14.0-18.0); Mean Corpuscular HGB Conc 32.9 g/dl (31.0-36.0); Mean Corpuscular Volume 88.2 fL (80.0-98.0); Mean Platelet Volume 10.1 fL (9.4-12.4); Platelet Count 165 X10*3/uL (160-400); Red Blood Count 4.31 X10*6/uL (4.60-5.80); Red Cell Distribution Width 13.8 % (11.0-16.0); White Blood Count 9.5 X10*3/uL (4.8-10.8)
[2023-05-12 22:11] LABS: Amphetamine Screen Urine Not Detected (Not Detect); Barbiturates, Urine Not Detected (Not Detect); Benzodiazepines Screen Urine Not Detected (Not Detect); Cannabinoid Screen Urine Not Detected (Not Detect); Cocaine Screen Urine POSITIVE (Not Detect); Fentanyl, urine POSITIVE (Not Detect); Opiate Screen Urine POSITIVE (Not Detect); Phencyclidine Screen Urine Not Detected (Not Detect)
[2023-05-12 22:27] LABS: B Type Natriuretic Peptide 28 pg/mL (<100)
[2023-05-12] MEDS: Heparin Sodium,Porcine/1/2NS 25,000 UNIT/250 ML IV.SOLN 12.5 UNIT IVCONT (22:28)
[2023-05-12] MEDS: Nitroglycerin/D5W 100 MG/250 ML INFUS..BTL IVCONT (23:10)
[2023-05-12 23:37] LABS: Troponin-I High Sensitivity 47.6 ng/L (<3.5-35.0)
--- NOTE | 2023-05-12 23:39 | ECG_ITS ---
Test Reason : REPEAT Blood Pressure : / mmHG Vent. Rate : 075 BPM Atrial Rate : 075 BPM P-R Int : 162 ms QRS Dur : 084 ms QT Int : 390 ms P-R-T Axes : 041 002 -03 degrees QTc Int : 435 ms Normal sinus rhythm Nonspecific ST elevation Nonspecific ST depression When compared with ECG of 12-MAY-2023 20:52, No significant change was found Referred By: Erica Escalante Electronically Signed By:ALEXIS ALAS MD
[2023-05-13] VITALS: BP 114/75; PULSE 76; RESP 14; O2SAT 94
[2023-05-13 00:20] VITALS: BP 98/59; PULSE 73; RESP 14; O2SAT 2
--- NOTE | 2023-05-13 00:23 | PC.NURSE ---
report called to [place] [id number] luiz silva. ems called for transport, pt awake and alert, verbalized understanding of transfer
--- NOTE | 2023-05-13 00:34 | PC.NURSE ---
ems at bedside for transport to [facility], handoff completed. pt transferred to ems stretcher
== END 2023-05-13 00:50 | disposition short-term general hospital (02) ==
PROVIDERS: Emergency Provider Emergency Medicine; PCP Nurse Practitioner Family
DX: F14.10 Cocaine abuse, uncomplicated (principal); F11.10 Opioid abuse, uncomplicated; R94.31 Abnormal electrocardiogram [ECG] [EKG]; R79.89 Other specified abnormal findings of blood chemistry; R07.2 Precordial pain; R07.9 Chest pain, unspecified; Z11.52 Encounter for screening for COVID-19
CPT/HCPCS: 36415; 71045; 80048; 80076; 80307; 83690; 83735; 83880; 84484; 85025; 85027; 85610; 85730; 87635; 93005; 96374; 96375; 96376; 99285; J1644; J2270; J2305

== ENCOUNTER → 2023-05-12 20:40 | Outpatient (BNV) | payer OTHER, SELFPAY | PROVIDERS: Emergency Provider Emergency Medicine; PCP Nurse Practitioner Family; Visit Provider Internal Medicine Cardiovascular Disease | DX: R07.9 Chest pain, unspecified (principal) | CPT/HCPCS: 93010 ==

== ENCOUNTER 2023-06-13 10:23 | Outpatient (AMB) | payer OTHER, SELFPAY ==
--- NOTE | 2023-06-13 10:36 | MHC.OFFVIS ---
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 Recently had non ST elevation myocardial infarction setting of cocaine use. Then sent to [facility]. Underwent RCA stenting with RPDA angioplasty. Does not look like he regularly sees any nylon mender. Quite noncompliant. He was started on Brilinta after the PCI but he states he has not been taking it. Also it seems that he was on atenolol in the past but he has not taken that either. He was cocaine positive at the time of admission for the NSTEMI. When I questioned him if he is still doing drugs, he states no. Not clear if reliable or not. Otherwise some aches and pains but nothing clear-cut anginal. [facility] Medical History (Updated 06/13/23 @ 11:07 by Eric Saeed MD) Noncompliance NSTEMI (non-ST elevated myocardial infarction) Atherosclerotic cardiovascular disease Myocardial infarct Substance abuse Renal colic High cholesterol Hypertension Surgical History (Updated 06/13/23 @ 10:39 by Abril Ruiz) No pertinent past surgical history Family History (Updated 06/13/23 @ 10:39 by Abril Ruiz) Mother No problems noted. Father No problems noted. Social History Alcohol intake: current Alcohol intake frequency: holidays/special occasions only Alcohol type: beer Patient Tobacco Use Status: Former Tobacco user Substance Use Type: Crack/Cocaine and Heroin Review of Systems Const Denies chills, Denies daytime sleepiness, Denies fatigue, Denies fever(s), Denies frequent falls, Denies night sweats, Denies snoring, Denies weakness, Denies weight gain and Denies weight loss Eyes Denies loss of vision ENT Denies dizziness and Denies hearing loss Card Denies chest pain, Denies chest pain with activity, Denies syncope, Denies rapid heart rate, Denies edema, Denies claudication, Denies leg edema, Denies lightheadedness, Denies palpitations, Denies dyspnea, Denies dyspnea on exertion and Denies orthopnea Resp Denies cough, Denies excessive phlegm production, Denies dyspnea, Denies dyspnea on exertion, Denies snoring and Denies wheezing GI Denies abdominal pain, Denies hematochezia, Denies change in bowel habits, Denies change in stool character, Denies heartburn, Denies nausea and Denies vomiting Denies hematuria, Denies dysuria and Denies urinary frequency Musc Denies arthralgias, Denies muscle weakness, Denies numbness and Denies tingling Skin/Breast Denies nail changes and Denies rash Neuro Denies Abnormal speech present, Denies dizziness, Denies syncope, Denies frequent falls, Denies loss of vision, Denies memory loss, Denies numbness, Denies tingling and Denies weakness Psych Denies depression and Denies memory loss Endo Denies fatigue and Denies palpitations Aller/Immun Denies wheezing Physical Exam Vital Signs: Last Vital Signs Pulse 102 H 06/13/23 10:37 BP 160/90 H 06/13/23 10:37 BMI result Body Mass Index 40.2 Const General: comfortable and no acute distress Orientation/consciousness: patient oriented x3 HEENT Other: Unremarkable Head: Yes normal to inspection Neck Neck: Yes normal visual inspection Chest Chest palpation & inspection: normal inspection of the chest Resp Auscultation: clear to auscultation bilaterally Cardio Palpation: normal PMI Heart sounds: S1 normal heart sound present, S2 normal heart sound present, no gallops, no murmurs and no rubs GI Palpation (GI): Soft to palpation Back/Spine/Pelvis Other: unremarkable Skin General skin exam: no rashes or lesions noted Neuro General: patient oriented x3 Speech: No Abnormal speech present Extrem General: Yes normal to inspection Psych Mental Status: mental status grossly normal Assessment & Plan Assessment & Plan (1) Atherosclerotic cardiovascular disease: Code(s): I25.10 - Atherosclerotic heart disease of [place] coronary artery without angina pectoris (2) NSTEMI (non-ST elevated myocardial infarction): Code(s): I21.4 - Non-ST elevation (NSTEMI) myocardial infarction (3) Hypertension: Code(s): I10 - Essential (primary) hypertension (4) Substance abuse: Code(s): F19.10 - Other psychoactive substance abuse, uncomplicated (5) Noncompliance: Code(s): Z91.199 - Patient's noncompliance with other medical treatment and regimen due to unspecified reason Plan [facility] documentation reviewed. Cardiac catheterization from 04/2023-left main unremarkable. LAD with an apical lesion in the very distal aspect. Medium caliber diagonal with mid-vessel occluded stent. Circumflex unremarkable. RCA with 50% mid-vessel plaque and severe 80% mid RPDA lesion. Status post RCA PCI and RPDA angioplasty. Echocardiogram with LVEF 55-60%. Probable distal anterior hypokinesis. [id number] aortic regurgitation. Overall, noncompliance, substance abuse, NSTEMI in setting of cocaine and pre-existing CAD. For medications, long-term aspirin. He needs to be on dual anti-platelet therapy because of recent PCI. He is stopped his Brilinta himself stating side effects. Rather use Plavix instead. 300 mg loading dose and then 75mg daily. He has not been taking his atenolol advised him to resume that. Continue statins. Strongly advised refraining from drugs. Medications: New clopidogrel (Plavix) Take 300mg on day 1 and then 75mg daily. 75 mg PO DAILY 90 days 90 tabs 3RF Coding Level of Care Code New Pt Level 4 (12726) Diagnoses Atherosclerotic cardiovascular disease I25.10 NSTEMI (non-ST elevated myocardial infarction) I21.4 Hypertension I10 Substance abuse F19.10 Noncompliance Z91.199
[2023-06-13 10:37] VITALS: BP 160/90; PULSE 102; BMI 40.2
== END 2023-06-13 10:53 | disposition home or self-care (01) ==
PROVIDERS: PCP Nurse Practitioner Family; Visit Provider Internal Medicine
DX: I25.10 Atherosclerotic heart disease of native coronary artery without angina pectoris (principal); I21.4 Non-ST elevation (NSTEMI) myocardial infarction; I10 Essential (primary) hypertension; F19.10 Other psychoactive substance abuse, uncomplicated; Z91.199 Patient's noncompliance with other medical treatment and regimen due to unspecified reason
CPT/HCPCS: 99204

== ENCOUNTER → 2023-06-13 10:23 | Outpatient (BNVA) | payer OTHER, SELFPAY | PROVIDERS: PCP Nurse Practitioner Family; Visit Provider Internal Medicine | DX: I25.10 Atherosclerotic heart disease of native coronary artery without angina pectoris (principal); I21.4 Non-ST elevation (NSTEMI) myocardial infarction; I10 Essential (primary) hypertension; F19.10 Other psychoactive substance abuse, uncomplicated; Z91.199 Patient's noncompliance with other medical treatment and regimen due to unspecified reason | CPT/HCPCS: 99202 ==

== ENCOUNTER 2023-09-11 12:58 | Outpatient (AMB) | payer OTHER, SELFPAY ==
[2023-09-11 13:05] VITALS: BP 118/60; PULSE 75; BMI 40.9
--- NOTE | 2023-09-11 13:05 | MHC.OFFVIS ---
Vital Signs 09/11/23 13:05 Height 5 ft 8 in Weight 268 lb 15.423 oz BMI 40.9 BP 118/60 Blood Pressure Location Lt brachial Position Sitting Pulse 75 Pulse Source Pulse Oximeter Intake Visit Reasons: 3 mth f/up Allergies No Known Allergies Allergy (Verified 09/11/23 13:12) Medication List - Last Reconciled 09/11/23 by Altagracia Sawyer NP aspirin 81 mg PO DAILY atenolol 75 mg PO DAILY atorvastatin 80 mg PO BEDTIME bupropion HCl XL 150 mg PO QAM clopidogrel (Plavix) 75 mg PO DAILY 90 days sertraline 100 mg PO DAILY HPI Comments Details: 63-year-old male presents today for a follow-up. He reports he has been doing well since last visit and denies any symptoms. He is doing cardiac rehab for his NSTEMI. He is no longer using any drugs, has about one cigarette a day and an occasional beer. He goes for walks often and does yard work to keep himself busy. He is worried about his weight gain. He states he is trying to avoid salt but he struggles with sweets. [facility] Medical History (Updated 09/11/23 @ 13:37 by Altagracia Sawyer NP) BMI 40.0-44.9, adult Noncompliance NSTEMI (non-ST elevated myocardial infarction) Atherosclerotic cardiovascular disease Myocardial infarct Substance abuse Renal colic High cholesterol Hypertension Surgical History (Updated 06/13/23 @ 10:39 by Abril Ruiz) No pertinent past surgical history Family History (Updated 06/13/23 @ 10:39 by Abril Ruiz) Mother No problems noted. Father No problems noted. Social History Alcohol intake: current Alcohol intake frequency: holidays/special occasions only Alcohol type: beer Patient Tobacco Use Status: Former Tobacco user Substance Use Type: Crack/Cocaine and Heroin Review of Systems Const Denies weakness ENT Denies dizziness Card Denies chest pain, Denies chest pain with activity, Denies syncope, Denies rapid heart rate, Denies pedal edema, Denies edema, Denies leg edema, Denies lightheadedness, Denies palpitations, Denies dyspnea, Denies dyspnea on exertion and Denies orthopnea Resp Denies cough, Denies dyspnea and Denies dyspnea on exertion GI Denies hematochezia and Denies change in stool character Musc Denies abnormal gait, Denies muscle cramps, Denies muscle weakness, Denies numbness, Denies radiating pain into limb and Denies tingling Neuro Denies abnormal gait, Denies dizziness, Denies syncope, Denies numbness, Denies tingling and Denies weakness Endo Denies palpitations Physical Exam Vital Signs: Last Vital Signs Pulse 75 09/11/23 13:05 BP 118/60 09/11/23 13:05 BMI result Body Mass Index 40.9 Const General: healthy appearing and no acute distress Orientation/consciousness: patient oriented x3 HEENT Head: Yes normal to inspection Eyes General: appearance normal, both eyes and all related structures Neck Neck: Yes normal visual inspection Chest Chest palpation & inspection: normal inspection of the chest Resp Effort & Inspection: normal respiratory effort Auscultation: clear to auscultation bilaterally Cardio Jugular venous distension: no JVD Palpation: normal PMI Rate: regular rate Rhythm: regular rhythm Heart sounds: S1 normal heart sound present, S2 normal heart sound present, no click, no gallops, no murmurs and no rubs GI Inspection: Yes normal to inspection Palpation (GI): Soft to palpation Skin General skin exam: no rashes or lesions noted Neuro General: patient oriented x3 Extrem General: Yes normal to inspection Psych Appearance: grossly normal Assessment & Plan Assessment & Plan (1) Atherosclerotic cardiovascular disease: Code(s): I25.10 - Atherosclerotic heart disease of [place] coronary artery without angina pectoris Category: Medical Plan: Cardiac catheterization from 04/2023 for NSTEMI. He is on aspirin 81mg, atorvastatin 80mg, and plavix. Plavix uninterrupted for 1 year. ASA indefinably. Last LDL in May 2023 67. Encouraged to quit cigarettes and beer. Complete avoidances of illicit drugs. (2) NSTEMI (non-ST elevated myocardial infarction): Code(s): I21.4 - Non-ST elevation (NSTEMI) myocardial infarction Category: Medical Plan: as above (3) Substance abuse: Code(s): F19.10 - Other psychoactive substance abuse, uncomplicated Category: Medical Plan: No longer using cocaine. Occasional cigarette and beer. (4) Noncompliance: Code(s): Z91.199 - Patient's noncompliance with other medical treatment and regimen due to unspecified reason Category: Medical Plan: Reports taking all his medications. (5) Hypertension: Code(s): I10 - Essential (primary) hypertension Category: Medical Plan: Blood pressure within range. Avoidance of salt discussed. On atenolol 75mg. (6) BMI 40.0-44.9, adult: Code(s): Z68.41 - Body mass index [BMI] 40.0-44.9, adult Category: Medical Plan: Obesity - will refer to weight management. He is agreeable and eager to learn healthier lifestyle. Heart healthy diet discussed in detail. Orders: Referrals Medical Weight Management Referral Z68.41 - Body mass index [BMI] 40.0-44.9, adult Coding Level of Care Code Est Pt Level 4 (25467) Diagnoses Atherosclerotic cardiovascular disease I25.10 NSTEMI (non-ST elevated myocardial infarction) I21.4 Substance abuse F19.10 Noncompliance Z91.199 Hypertension I10 BMI 40.0-44.9, adult Z68.41
== END 2023-09-11 13:43 | disposition home or self-care (01) ==
PROVIDERS: PCP Nurse Practitioner Family; Visit Provider Nurse Practitioner
DX: I25.10 Atherosclerotic heart disease of native coronary artery without angina pectoris (principal); I21.4 Non-ST elevation (NSTEMI) myocardial infarction; F19.10 Other psychoactive substance abuse, uncomplicated; Z91.199 Patient's noncompliance with other medical treatment and regimen due to unspecified reason; I10 Essential (primary) hypertension; Z68.41 Body mass index [BMI] 40.0-44.9, adult
CPT/HCPCS: 99214

== ENCOUNTER → 2023-09-11 12:58 | Outpatient (BNVA) | payer OTHER, SELFPAY | PROVIDERS: PCP Nurse Practitioner Family; Visit Provider Nurse Practitioner | DX: I25.10 Atherosclerotic heart disease of native coronary artery without angina pectoris (principal); I10 Essential (primary) hypertension; I21.4 Non-ST elevation (NSTEMI) myocardial infarction; E66.9 Obesity, unspecified; F19.10 Other psychoactive substance abuse, uncomplicated; Z68.41 Body mass index [BMI] 40.0-44.9, adult; Z91.199 Patient's noncompliance with other medical treatment and regimen due to unspecified reason | CPT/HCPCS: 99212 ==

== ENCOUNTER 2023-11-12 11:30 | Outpatient (RCR) | payer OTHER, SELFPAY | END 2023-11-22 07:08 | disposition home or self-care (01) | LOC: HO.CR 11:30 | PROVIDERS: PCP Nurse Practitioner Family; Visit Provider Nurse Practitioner Family | DX: I25.10 Atherosclerotic heart disease of native coronary artery without angina pectoris (principal); I21.4 Non-ST elevation (NSTEMI) myocardial infarction | CPT/HCPCS: 93798 ==

== ENCOUNTER 2023-11-13 10:05 | Outpatient (REF) | payer OTHER, SELFPAY ==
[2023-11-13 12:17] LABS: Anion Gap 13 (12-20); Blood Urea Nitrogen 18 mg/dL (9-16); Calcium 9.5 mg/dL (8.4-10.2); Carbon Dioxide 30 mmol/L (22-29); Chloride 101 mmol/L (96-108); Estimated Glomerular Filt Rate > 60; Glucose Random 114 mg/dL (60-115); Potassium 4.5 mmol/L (3.3-5.1); Sodium 139 mmol/L (135-145)
[2023-11-13 12:22] LABS: Troponin-I High Sensitivity 2.9 ng/L (<3.5-35.0)
== END 2023-11-13 10:06 | disposition home or self-care (01) ==
LOC: HO.LAB 10:05
PROVIDERS: PCP Nurse Practitioner Family; Visit Provider Internal Medicine
DX: I25.10 Atherosclerotic heart disease of native coronary artery without angina pectoris (principal); R07.2 Precordial pain; I21.4 Non-ST elevation (NSTEMI) myocardial infarction; F19.10 Other psychoactive substance abuse, uncomplicated
CPT/HCPCS: 36415; 80048; 84484; 93005; 99212

== ENCOUNTER 2023-11-13 10:05 | Outpatient (AMB) | payer OTHER, SELFPAY ==
--- NOTE | 2023-11-13 10:21 | A.OFFVIS_ITS ---
Vital Signs 11/13/23 10:24 Height 5 ft 8 in Weight 276 lb 0.3 oz BMI 42.0 BP 138/76 Blood Pressure Location Lt brachial Position Sitting Pulse 67 Intake Visit Reasons: follow up w /ekg per HS Rn Rehabilitation Required: No Accompanied by: Self / Same As Patient Allergies No Known Allergies Allergy (Verified 09/11/23 13:12) Medication List - Last Reconciled 11/13/23 by Eric Saeed MD aspirin 81 mg PO DAILY atenolol 75 mg PO DAILY atorvastatin 80 mg PO BEDTIME bupropion HCl XL 150 mg PO QAM clopidogrel (Plavix) 75 mg PO DAILY 90 days sertraline 100 mg PO DAILY HPI Comments Details: Constantino returns for follow-up. In the past, he was seen regarding coronary artery disease. In 05/08/2023, he had NSTEMI in setting of cocaine use. Underwent RCA stenting with RPDA angioplasty. Around the time, he was quite noncompliant but now he states he is taking his meds regularly. When questioned about drugs, he is denying any recent use. With regard to smoking, he states he has not smoked in the last few weeks. He called stating that he is getting some chest pains again. He describes mainly when he is lying down. Nothing when he is walking. In fact when he is walking he states he feels better. He relates to taking melatonin to get sleep. Overall, sounds nonspecific. [facility] Medical History (Updated 09/11/23 @ 13:37 by Altagracia Sawyer NP) BMI 40.0-44.9, adult Noncompliance NSTEMI (non-ST elevated myocardial infarction) Atherosclerotic cardiovascular disease Myocardial infarct Substance abuse Renal colic High cholesterol Hypertension Surgical History No pertinent past surgical history Family History Mother No problems noted. Father No problems noted. Social History Alcohol intake: current Alcohol intake frequency: holidays/special occasions only Alcohol type: beer Patient Tobacco Use Status: Former Tobacco user Substance Use Type: Crack/Cocaine and Heroin Review of Systems Const Denies chills, Denies fatigue, Denies fever(s), Denies weight gain and Denies weight loss ENT Denies dizziness Card Reports chest pain, Denies leg edema, Denies lightheadedness, Reports palpitations, Reports dyspnea on exertion, Denies orthopnea and Denies other Resp Denies cough and Reports dyspnea on exertion GI Denies hematochezia and Denies change in stool character Musc Denies abnormal gait, Denies muscle weakness, Denies numbness, Denies radiating pain into limb and Denies tingling Neuro Denies abnormal gait, Denies dizziness, Denies numbness and Denies tingling Endo Denies fatigue and Reports palpitations Physical Exam Vital Signs: Last Vital Signs Pulse 67 11/13/23 10:24 BP 138/76 11/13/23 10:24 BMI result Body Mass Index 42.0 Const General: comfortable and no acute distress Orientation/consciousness: patient oriented x3 HEENT Other: Unremarkable Head: Yes normal to inspection Neck Neck: Yes normal visual inspection Chest Chest palpation & inspection: normal inspection of the chest Resp Auscultation: clear to auscultation bilaterally Cardio Palpation: normal PMI Heart sounds: S1 normal heart sound present, S2 normal heart sound present, no gallops, no murmurs and no rubs GI Palpation (GI): Soft to palpation Back/Spine/Pelvis Other: unremarkable Skin General skin exam: no rashes or lesions noted Neuro General: patient oriented x3 Extrem General: Yes normal to inspection Psych Mental Status: mental status grossly normal Office Procedures EKG Details: EKG with underlying sinus rhythm at 67/Min; no significant ST-T changes; [place] [id number], Complete Assessment & Plan Assessment & Plan (1) Atherosclerotic cardiovascular disease: Code(s): I25.10 - Atherosclerotic heart disease of [place] coronary artery without angina pectoris Category: Medical (2) NSTEMI (non-ST elevated myocardial infarction): Code(s): I21.4 - Non-ST elevation (NSTEMI) myocardial infarction Category: Medical (3) Hypertension: Code(s): I10 - Essential (primary) hypertension Category: Medical (4) Substance abuse: Code(s): F19.10 - Other psychoactive substance abuse, uncomplicated Category: Medical (5) Noncompliance: Code(s): Z91.199 - Patient's noncompliance with other medical treatment and regimen due to unspecified reason Category: Medical Plan [facility] documentation reviewed. Cardiac catheterization from 04/2023-left main unremarkable. LAD with an apical lesion in the very distal aspect. Medium caliber diagonal with mid-vessel occluded stent. Circumflex unremarkable. RCA with 50% mid-vessel plaque and severe 80% mid RPDA lesion. Status post RCA PCI and RPDA angioplasty. Echocardiogram with LVEF 55-60%. Probable distal anterior hypokinesis. [id number] aortic regurgitation. The recent chest pain episodes seem fairly nonspecific but cannot definitively exclude angina either based on the above findings. We will get troponins checked today to ensure there is no acute component. If this is within normal limits, we can get an echocardiogram and stress test. Discussed with the patient he is agreeable. With regard to meds, continue aspirin/Plavix. Continue atenolol, statins. Nitroglycerin sublingually as necessary for chest pains. If it does not resolve completely, advised 911/ER. He understands. Abstinence from smoking/drugs and we discussed this today. Follow-up after the testing. Orders: Orders CA echo transthoracic complete Today I25.10 - Atherosclerotic heart disease of [place] coronary artery without angina pectoris CA stress test Today R07.2 - Precordial pain NM cardiolite stress test Today R07.2 - Precordial pain Basic Metabolic Panel Today I25.10 - Atherosclerotic heart disease of [place] coronary artery without angina pectoris Troponin-I High Sensitivity Today I25.10 - Atherosclerotic heart disease of [place] coronary artery without angina pectoris, R07.2 - Precordial pain Medications: New nitroglycerin do not exceed 3 doses per episode 0.4 mg sublingual Q5M PRN 30 tabs 5RF chest pain R07.2 - Precordial pain Coding Level of Care Code Est Pt Level 4 (20182) Diagnoses Atherosclerotic cardiovascular disease I25.10 NSTEMI (non-ST elevated myocardial infarction) I21.4 Hypertension I10 Substance abuse F19.10 Noncompliance Z91.199 CPT Codes EKG - CPT: 60211-[id number], Complete ([id number])
[2023-11-13 10:24] VITALS: BP 138/76; PULSE 67; BMI 42.0
== END 2023-11-13 10:58 | disposition home or self-care (01) ==
PROVIDERS: PCP Nurse Practitioner Family; Visit Provider Internal Medicine
DX: I25.10 Atherosclerotic heart disease of native coronary artery without angina pectoris (principal); I21.4 Non-ST elevation (NSTEMI) myocardial infarction; I10 Essential (primary) hypertension; F19.10 Other psychoactive substance abuse, uncomplicated; Z91.199 Patient's noncompliance with other medical treatment and regimen due to unspecified reason
CPT/HCPCS: 93010; 99214

== ENCOUNTER → 2023-11-26 12:39 | Outpatient (REF) | payer OTHER, SELFPAY ==
--- NOTE | 2023-11-26 12:42 | CA_ITS ---
Transthoracic Echocardiogram Patient (Last, First, Middle): Constantino Cardona J Gender: Male Date of : 1960 Age: 63 Procedure Date: 11/26/2023 Procedure Type: Transthoracic Echocardiogram Location: OP Height: 172.72 cm Weight: 125.19 kg BSA: 2.34 m2 Heart Rate: 75 bpm BP: 138 / 74 mmHg Apple Packing Header: SB Referring MD: Eric Saeed MD Symptoms: I25.10 - Atherosclerotic heart disease of [place] coronary artery without... Study Quality: Adequate ECG Rhythm: Sinus Conclusions: - The left ventricular systolic function is normal. The calculated ejection fraction is 58% by biplane method. - There is moderate calcification of the aortic valve. - There is mild mitral annular calcification. Findings Procedure Information Contrast agent, definity, is being given per protocol without apparent complications. The quality of the study was technically difficult. The study quality is limited by patients body habitus and lung artifact. Left Ventricle Normal left ventricular cavity size. There is normal left ventricular wall thickness. The left ventricular systolic function is normal. The calculated ejection fraction is 58% by biplane method. There is no evidence of regional wall motion abnormalities. Diastolic function is normal for age. Right Ventricle Normal right ventricular cavity size and systolic function. Atria The left atrium is mildly dilated. The right atrium is normal in size. Aortic Valve The aortic valve was not well visualized. There is moderate calcification of the aortic valve. There is no aortic valve stenosis. There is trace (trivial) aortic valve regurgitation. Mitral Valve There is mild mitral annular calcification. There is no mitral valve regurgitation. There is no mitral valve stenosis. Pulmonic Valve The pulmonic valve is likely normal. Tricuspid Valve There is no tricuspid valve regurgitation. Tricuspid regurgitation envelope is inadequate for calculation of right ventricular systolic pressure. Great Vessels The asc aorta is normal in size. Venous The inferior vena cava is mildly dilated and collapses greater than 50% with inspiration. Pericardium/Pleural There is no evidence of pericardial effusion. Prior Study Comparison No prior study available for comparison. Measurements 2D Linear Measurements IVSd: 0.92 0.6-0.9/0.6-1.0 cm LVIDd: 4.77 3.9-5.3/4.2-5.9 cm LVIDd Index: 2.04 2.4-3.2/2.2-3.1 cm/m2 LVIDs: 3.19 2.0-3.6 cm LVPWd: 0.75 0.7-1.1 cm LV Mass: 165.42 67-162/88-224 g LV Mass Index: 70.69 43-95/49-115 g/m2 LVOT Diam: 2.40 3.0+(-)1.3 cm 2D Systolic Function EF 4C: 59.40 >55% EF 2C: 59.20 >55% EF BiP: 58.30 >55% Mitral Valve MV Pk E: 0.91 MV PK A: 1.03 MV Decel Time: 205.00 E/A: 0.90 E'Lateral: 7.40 E'Medial: 6.74 E/E' Med: 13.50 E/E' Lat: 12.30 PHT: 60.00 MVA PHT: 3.67 Decel Preston: 4.46 Aortic Valve AoV Pk Arnel: 1.43 AoV Mn Arnel: 1.02 AoV VTI: 0.28 AoV Pk Grad: 8.00 Aov Mn Grad: 5.00 EZE Cont.VTI: 3.58 LVOT LVOT Pk Arnel: 1.18 LVOT Mn Arnel: 0.74 LVOT VTI: 0.22 LVOT Pk Grad: 6.00 LVOT Mn Grad: 3.00 LVOT Diam: 2.40 LVOT Area: 4.52 Diastolic Function MV Pk E: 0.91 MV Pk A: 1.03 E/A: 0.90 E'Medial: 6.74 E/E' Med: 13.50 E' Laterial: 7.40 E/E' Lat: 12.30 Right Ventricle TAPSE (mm): 31.50 TVS' Arnel: 13.10 Tricuspid Valve RA Press: 8.00 Great Vessels Aorta Sinus of Valsalva: 3.10 2.0-3.5 cm Ao Asc: 2.80 2.1-3.4 cm Pulmonary Veins Pulm Vein S/D 1.30 Pulmonary Valve PV Pk Arnel: 0.87 Peak PV Grad: 3.00 Updated in Other Vendor System with Status of Final Eric Saeed MD electronically signed on 11/27/2023 9:35:16 AM with status of Final
== END ==
LOC: HO.CARD 12:39
PROVIDERS: PCP Nurse Practitioner Family; Visit Provider Internal Medicine
DX: I25.10 Atherosclerotic heart disease of native coronary artery without angina pectoris (principal)
CPT/HCPCS: 93306; Q9957

== ENCOUNTER → 2023-11-26 12:42 | Outpatient (BNV) | payer OTHER, SELFPAY | PROVIDERS: PCP Nurse Practitioner Family; Visit Provider Internal Medicine | DX: I35.8 Other nonrheumatic aortic valve disorders (principal); I34.81 Nonrheumatic mitral (valve) annulus calcification | CPT/HCPCS: 93306 ==

== ENCOUNTER → 2024-02-07 07:43 | Outpatient (REF) | payer MEDICARE, SELFPAY ==
--- NOTE | ~2024-02-07 | NM_ITS ---
EXERCISE MYOCARDIAL PERFUSION STUDY INDICATION: Precordial chest pain TECHNIQUE: The patient was brought in for an exercise perfusion study on 02/07/2024. Patient performed exercise as per Wei protocol and was injected 40 mCi of sestamibi once target heart rate was achieved. Images were obtained using the SPECT gamma camera interlaced with the gating device. Images were obtained in supine position. Resting perfusion study was performed on 02/08/2024. Patient was administered 40 mCi of sestamibi intravenously at rest. Images were then obtained in supine position. Images obtained without without CT attenuation. Total DLP 145 mGy-cm. Images were processed with the software and compared side to side in short axis, horizontal long axis and vertical long axis views. FINDINGS: Raw images were reviewed The stress perfusion study showed nonattenuated images show severely reduced uptake in the basal inferior wall of the LV myocardium as well as mildly reduced uptake in the mid inferior and apical inferior wall of the LV myocardium and mildly reduced uptake in the basal anterolateral wall of the LV myocardium. Attenuated corrected images show mildly reduced uptake in the basal inferior wall of the LV myocardium. The gated study shows normal LV systolic function with visually LVEF of greater than 55%. LV cavity is normal in in size. The gated study shows normal systolic wall thickening and contraction of segments. Resting study shows nonattenuated images show improved uptake in the basal inferior as well as mid inferior wall of the LV myocardium and persistent mildly reduced uptake in the basal anterolateral wall of the LV myocardium. Attenuation corrected images show improved uptake in the basal inferior wall of the LV myocardium. Gating at rest reveals normal systolic wall motion with ejection fraction at 60%. The findings are consistent with small area reversible defect of the basal inferior wall suggestive of ischemia.. NM/NM cardiolite stress test IMPRESSION: 1. Myocardial perfusion imaging study shows basal inferior wall ischemia of mild intensity. 2. Gated LVEF is 60% at rest. 3. Transient ischemic dilatation not present. EKG revealed negative for ischemia at achieved workload. Electronically signed by: Mike Yañez MD 02/10/2024 11:09 AM [facility] [place]
--- NOTE | 2024-02-07 07:44 | CA_ITS ---
Acquisition Time: 2024-02-07 08:10:51 Total Exercise Time: 00:04:14 Test Indications: CP Medications: SEE H Protocol: KAYE Max HR: 126 BPM 81% of Pred: 155 BPM Max BP: 180/078 mmHG Max Work Load: 4.7 METS Exercise stress test with exercise 4 min 14 sec of Kaye stage 1, achieving 81% MPHR, with severe shortness of breath, no chest discomfort, with isolated PACs, with normotensive response to exercise, without EKG changes meeting criteria for ischemia at achieved workload. His breathing gradually normalized in recovery. Nuclear images pending. Test reviewed with Dr Yañez. Referred By: Eric Saeed Overread By: KALEB ARAYA
== END ==
LOC: HO.CARD 07:43
PROVIDERS: PCP Nurse Practitioner Family; Visit Provider Internal Medicine
DX: R07.2 Precordial pain (principal)
CPT/HCPCS: 78452; 93017; A9500; J0280; J2785

== ENCOUNTER → 2024-02-07 07:44 | Outpatient (BNV) | payer MEDICARE, SELFPAY | PROVIDERS: PCP Nurse Practitioner Family; Visit Provider Nurse Practitioner Family | DX: R07.2 Precordial pain (principal) | CPT/HCPCS: 78452; 93016; 93018 ==

== ENCOUNTER 2024-02-25 14:48 | Outpatient (AMB) | payer MEDICARE, MEDICAID, SELFPAY ==
[2024-02-25 15:06] VITALS: BP 110/56; PULSE 80; BMI 41.8
--- NOTE | 2024-02-25 15:06 | MHC.OFFVIS ---
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: No Allergies No Known Allergies Allergy (Verified 02/25/24 15:09) Medication List - Last Reconciled 02/25/24 by Char Puckett, RENAN-C aspirin 81 mg PO DAILY atenolol 75 mg PO DAILY atorvastatin 80 mg PO BEDTIME bupropion HCl XL 150 mg PO QAM clopidogrel (Plavix) 75 mg PO DAILY 90 days nitroglycerin 0.4 mg sublingual Q5M PRN sertraline 100 mg PO DAILY HPI HPI 3 mth fu: Details: Constantino is a 64-year-old male with past medical history of hypertension, hyperlipidemia, CAD with history of SD and RAUL to the diagonal 2011, NSTEMI in the setting of cocaine use 04/2023 with catheterization showing with R PDA stenosis, angioplasty and stenting performed who presents for follow-up after recent nuclear stress test. Today he reports that he does get mid chest pressure that occurs randomly. The episodes can happen at rest and with activity. He typically takes 1 nitroglycerin with relief. He says he was not getting chest discomfort for a few months after his last cardiac catheterization procedure then he started getting occasional episodes. In all he is currently pleased with how he is feeling and does not want any further testing or medicine changes at this time. He has some shortness of breath with exertion which is not new. He quit smoking last summer. No PND, orthopnea or edema. No palpitations, lightheadedness, presyncope, syncope, falls. Taking meds as directed. [facility] Medical History (Updated 02/25/24 @ 17:01 by Char Puckett, RENAN-C) BMI 40.0-44.9, adult Noncompliance NSTEMI (non-ST elevated myocardial infarction) Atherosclerotic cardiovascular disease Myocardial infarct Substance abuse Renal colic High cholesterol Hypertension Surgical History No pertinent past surgical history Family History Mother No problems noted. Father No problems noted. Social History Alcohol intake: current Alcohol intake frequency: holidays/special occasions only Alcohol type: beer Patient Tobacco Use Status: Former Tobacco user Substance Use Type: Crack/Cocaine and Heroin Review of Systems Const All systems reviewed & are unremarkable except as noted in HPI and below ENT Denies dizziness Card Reports chest pain, Reports chest pain at rest, Denies chest pain with activity, Denies rapid heart rate, Denies pedal edema, Denies edema, Denies leg edema, Denies lightheadedness, Denies palpitations, Denies dyspnea, Denies dyspnea on exertion and Denies orthopnea Resp Denies cough, Denies dyspnea and Denies dyspnea on exertion GI Denies hematochezia and Denies change in stool character Musc Denies abnormal gait, Denies limited range of motion, Denies muscle cramps, Denies muscle weakness, Denies numbness, Denies radiating pain into limb, Denies stiffness and Denies tingling Neuro Denies abnormal gait, Denies dizziness, Denies numbness and Denies tingling Endo Denies palpitations Physical Exam Vital Signs: Last Vital Signs Pulse 80 02/25/24 15:06 BP 110/56 L 02/25/24 15:06 BMI result Body Mass Index 41.8 Const Other: morbidly obese General: cooperative, comfortable and no acute distress Orientation/consciousness: patient oriented x3 Neck Neck: Yes normal visual inspection and Yes no JVD Resp Effort & Inspection: normal respiratory effort Auscultation: clear to auscultation bilaterally, no crackles, no rales, no rhonchi and no wheezes Cardio Rate: regular rate Rhythm: regular rhythm Heart sounds: S1 normal heart sound present, S2 normal heart sound present, no murmurs and no rubs Peripheral pulses: Peripheral pulses 2+ throughout Neuro General: patient oriented x3 Extrem General: Yes normal to inspection, No no pedal edema and No calf tenderness Psych Appearance: grossly normal Mental Status: mental status grossly normal Speech and movement: Normal speech and movement present Office Procedures EKG Details: Today, read by me, normal sinus rhythm, no acute ST or T-wave abnormalities, rate 82, QTc 455 millisecond [id number], Complete Assessment & Plan Assessment & Plan (1) Atherosclerotic cardiovascular disease: Code(s): I25.10 - Atherosclerotic heart disease of [place] coronary artery without angina pectoris Category: Medical Plan: History of CAD with RAUL to the diagonal in 2011. NSTEMI in the setting of cocaine use with cardiac catheterization 05/15/2023 showing proximal right PDA 85% stenosis. He had balloon angioplasty and RAUL placed. He says he had not been getting chest discomfort post catheterization then started getting it occasionally. He did undergo an echocardiogram on 11/26/2023 which showed EF 58% and no regional wall motion abnormalities. He had a exercise nuclear stress test on 02/07/2024 with exercise 4 minutes 14 seconds with severe shortness of breath, no EKG changes with nuclear imaging showing basal inferior wall ischemia of mild intensity. Results reviewed with him in detail. Today he reports he is still getting periodic random chest discomfort. He says it is relieved with 1 nitroglycerin. EKG today shows normal sinus rhythm, no acute ST or T-wave abnormalities, rate 82. He tells me he is pleased with how he is feeling. Informed him that he may have further blockages or narrowing in his stent. He states understanding. Offered cardiac catheterization and he adamantly declines. Offered isosorbide and explained to him that this is a long-acting nitroglycerin and can help to relieve his discomfort. Declines this and any new medications. He says he is fine just the way he is. His blood pressure is on the low side. Will leave his atenolol at his current dose. Will have him continue aspirin indefinitely, continue Plavix. Continue atorvastatin with ideal LDL goal less than 70. The need for strict med compliance reviewed with him. He says he did quit smoking and was applauded on this. Informed him that if he has chest discomfort not relieved by 2 nitroglycerin he is to seek emergency medical care as this may be a possible SD. cardiology follow-up in 3 months, sooner if needed. (2) Abnormal nuclear stress test: Code(s): R94.39 - Abnormal result of other cardiovascular function study Category: Medical Plan: As above. Patient informed and he declines further testing or new medications. (3) Chest discomfort: Code(s): R07.89 - Other chest pain Category: Medical Plan: As above (4) Hypertension: Code(s): I10 - Essential (primary) hypertension Category: Medical Plan: As above (5) High cholesterol: Code(s): E78.00 - Pure hypercholesterolemia, unspecified Category: Medical Plan: [place] LDL goal less than 70. Continue high-dose atorvastatin. Will check fasting lipid profile. Plan Time spent on chart review, documentation, interview and assessment Orders: Orders Lipid Panel Today R94.39 - Abnormal result of other cardiovascular function study Comprehensive Met. Panel Today R94.39 - Abnormal result of other cardiovascular function study Coding Level of Care Code Est Pt Level 4 (50894) Complex EM visit Add On G2211 Diagnoses Atherosclerotic cardiovascular disease I25.10 Abnormal nuclear stress test R94.39 Chest discomfort R07.89 Hypertension I10 High cholesterol E78.00 CPT Codes EKG - CPT: 01450-[id number], Complete ([id number]) Time Spent (min) 36
== END 2024-02-25 16:06 | disposition home or self-care (01) ==
PROVIDERS: PCP Nurse Practitioner Family; Visit Provider Nurse Practitioner Family
DX: I25.10 Atherosclerotic heart disease of native coronary artery without angina pectoris (principal); R94.39 Abnormal result of other cardiovascular function study; R07.89 Other chest pain; I10 Essential (primary) hypertension; E78.00 Pure hypercholesterolemia, unspecified
CPT/HCPCS: 93010; 99214; G2211

== ENCOUNTER → 2024-02-25 14:48 | Outpatient (BNVA) | payer MEDICARE, SELFPAY | PROVIDERS: PCP Nurse Practitioner Family; Visit Provider Nurse Practitioner Family | DX: R07.89 Other chest pain (principal); I25.10 Atherosclerotic heart disease of native coronary artery without angina pectoris; I10 Essential (primary) hypertension; I21.4 Non-ST elevation (NSTEMI) myocardial infarction; R94.39 Abnormal result of other cardiovascular function study; E78.00 Pure hypercholesterolemia, unspecified | CPT/HCPCS: 93005; 99212 ==

== ENCOUNTER 2024-02-28 09:03 | Outpatient (REF) | payer MEDICARE, MEDICAID, SELFPAY ==
[2024-02-28 10:14] LABS: Alanine Aminotransferase 293 U/L (0-40); Albumin Level 4.2 g/dL (3.5-5.0); Alkaline Phosphatase 195 U/L (39-117); Anion Gap 15 (12-20); Bilirubin Total 0.5 mg/dL (0.0-1.0); Blood Urea Nitrogen 16 mg/dL (9-16); Calcium 10.2 mg/dL (8.4-10.2); Carbon Dioxide 29 mmol/L (22-29); Chloride 105 mmol/L (96-108); Cholesterol 165 mg/dL (<200); Estimated Glomerular Filt Rate > 60; Glucose Random 105 mg/dL (60-115); HDL Cholesterol 39 mg/dL (>40); LDL Cholesterol Calculated 84 mg/dL (<100); Potassium 4.5 mmol/L (3.3-5.1); Sodium 144 mmol/L (135-145); Total Protein 7.5 g/dL (6.5-8.0); Triglycerides 210 mg/dL (<150)
[2024-02-28 10:40] LABS: Aspartate Amino Transferase 99 U/L (5-37)
== END 2024-02-28 09:04 | disposition home or self-care (01) ==
LOC: HO.LAB 09:03
PROVIDERS: PCP Nurse Practitioner Family; Visit Provider Nurse Practitioner Family
DX: R94.39 Abnormal result of other cardiovascular function study (principal)
CPT/HCPCS: 36415; 80053; 80061

== ENCOUNTER 2024-03-17 06:44 | Outpatient (REF) | payer MEDICARE, MEDICAID, SELFPAY ==
[2024-03-17 08:00] LABS: Albumin Level 4.2 g/dL (3.5-5.0); Alkaline Phosphatase 107 U/L (39-117); Aspartate Amino Transferase 26 U/L (5-37); Bilirubin Direct 0.2 mg/dL (0.0-0.5); Bilirubin Total 0.6 mg/dL (0.0-1.0); Total Protein 7.4 g/dL (6.5-8.0)
[2024-03-17 08:17] LABS: Alanine Aminotransferase 49 U/L (0-40)
== END 2024-03-17 06:45 | disposition home or self-care (01) ==
LOC: HO.LAB 06:44
PROVIDERS: PCP Nurse Practitioner Family; Visit Provider Nurse Practitioner Family
DX: R79.89 Other specified abnormal findings of blood chemistry (principal)
CPT/HCPCS: 36415; 80076

== ENCOUNTER → 2024-04-16 12:49 | Outpatient (BNVA) | payer MEDICARE, MEDICAID, SELFPAY | PROVIDERS: PCP Nurse Practitioner Family; Visit Provider Surgery ==

== ENCOUNTER → 2024-04-17 11:31 | Outpatient (BNVA) | payer MEDICARE, MEDICAID, SELFPAY | PROVIDERS: PCP Nurse Practitioner Family; Visit Provider Physician Assistant Surgical ==

== ENCOUNTER 2024-04-24 10:45 | Outpatient (AMB) | payer MEDICARE, MEDICAID, SELFPAY ==
--- NOTE | 2024-04-24 10:46 | MHC.OFFVISWM ---
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 Allergies No Known Allergies Allergy (Verified 04/24/24 11:37) Medication List - Last Reconciled 04/24/24 by Sal Rivero MD aspirin 81 mg PO DAILY atenolol 75 mg PO DAILY atorvastatin 80 mg PO BEDTIME bupropion HCl XL 150 mg PO QAM clopidogrel (Plavix) 75 mg PO DAILY 90 days nitroglycerin 0.4 mg sublingual Q5M PRN sertraline 100 mg PO DAILY HPI Comments Details: Previous weight loss efforts: self diet and exercise Wakes up: 8.30am, Sleeps: 12am Breakfast: 9am (toast) Lunch: 2-3pm (soup, sandwich) Dinner: 7pm (Lazzagna, pasta, burger) Snacks: 2 snacks between breakfast and lunch (pie, cake), twice between lunch and dinner (ice cream), after dinner (ice cream) Exercise: none Fluids: Coffee (1 cup/day with cream and sugar), tea: rarely, soda: regular Pepsi, juice: orange juice x3/wk, ETOH: 1/month (3 beers) [facility] Medical History (Updated 04/24/24 @ 11:42 by aSl Rivero MD) Anxiety Depression Hyperlipidemia Morbid obesity BMI 40.0-44.9, adult Noncompliance NSTEMI (non-ST elevated myocardial infarction) Atherosclerotic cardiovascular disease Myocardial infarct Substance abuse Renal colic High cholesterol Hypertension Surgical History Hx of colonoscopy Family History Mother No problems noted. Father No problems noted. Social History (Updated 04/24/24 @ 10:53 by BRIDGER Rivera Alcohol intake: current Alcohol intake frequency: a few times a month Alcohol type: beer Patient Tobacco Use Status: Former Tobacco user Substance Use Type: Crack/Cocaine and Heroin Physical Exam Vital Signs: Last Vital Signs Temp 96.8 F 04/24/24 10:54 Pulse 82 04/24/24 10:54 BP 135/80 04/24/24 10:54 Pulse Ox 95 04/24/24 10:54 Oxygen Delivery Method Room Air 04/24/24 10:54 BMI result Body Mass Index 42.6 GI Inspection: Yes normal to inspection (Android body habitus) and Yes obesity Palpation (GI): Firmness to palpation present (GI) and Hernia present (umbilical) Extrem Right lower extremity: normal to inspection Left lower extremity: normal to inspection Assessment & Plan Assessment & Plan (1) Morbid obesity: Code(s): E66.01 - Morbid (severe) obesity due to excess calories Category: Medical Plan: 1.? Plan for lap sleeve gastrectomy. If diaphragmatic or ventral hernias are present at time of surgery, these will be repaired laparoscopically as well. I emphasized the importance of close follow-up, adherence to instructions and good communication. The surgery does not replace the need to change your lifestlyle which is the cause of the obesity problem. The surgery provides the motivation to try again to change your lifestyle, it reduces the appetite and make the transition to a better lifestyle easier and doubles the amount of weight you would lose compared to doing the lifestyle change without the surgery. You will need to be on a liquid diet with protein shakes for 2 weeks before surgery to maximize weight loss and boost your nutritional status to recover better from surgery and also for the first two weeks after surgery to let the stomach heal before we introduce other foods. After the first 2 weeks we will introduce protein bars and soft foods like scrambled eggs, cottage cheese and yogurt and after the 6th week will introduce meat, fish and cooked vegetables in small amounts. Over time you should be able to eat everything in small amounts. Side effects like nausea, vomiting, heartburn or abdominal pain are not common in the practice unless you are not following in the practice. This operation requires lifetime commitment to following in our practice and communication with me. You will much less weight and experience side effects if you don?t communicate or not following in the practice. Complications are rare and in our practice is about 1/10 of the national average. However, you can develop bleeding that may require transfusion (hasn?t happened for year in the practice), you may from complications (we did not have any deaths in the practice) and infections. Infections are usually a result of breakdown in communication or not understanding or following directions correctly. They are difficult to treat, they can happen during the first 6 weeks, they may require to be in the hospital for weeks or even months, not being able to eat by mouth and you may have drains and surgeries to try and correct the issue. Other risks and complications include possible conversion to an open procedure, leaks, small bowel obstruction, blood clots, cardiac, or pulmonary complications, as superintendent container terminal complications such as ulcers, insufficient weight loss and vitamin deficiencies. The patient wishes to take a few days to consider this information before we proceed with the preoperative work-up.
--- OUTSIDE RECORDS SUMMARY | 2024-04-24 10:48 | XMS_ITS | Clinical Summary ---
Author Organization [facility] [address] [place] Address [address] [place] [address] Phone Care Team Providers Care Technical Expert Name Role Phone LavernMarquita NP Primary Care Provider [phone] Encounters Date Type Department Care Team Description 04/17/2024 Telephone Gastroenterology - [address] [address] Keith Portillo MD from Last 3 Months Surgical History Surgery Date Site/Laterality Comments OTHER SURGICAL HISTORY PROCEDURE: HISTORICAL MELANOMA; COMMENT: Malignant melanoma 03/06 back (superficial spreading Breslow 0.6 mm David level II at least) ANGIOPLASTY 2011 PROCEDURE: HISTORICAL ANGIOPLASTY W/STENT Medical History Medical History Date Comments History of malignant melanoma of skin 02/28/2019 DX:History of malignant melanoma of skin; COMMENT: Malignant melanoma 03/06 back (superficial spreading Breslow 0.6 mm David level II at least) Anemia 03/11/2019 DX:Anemia Benign lipomatous tumor 03/11/2019 DX:Benig n lipomatous tumor Breast mass, right 03/11/2019 DX:Breast mas s, right Chronic pain 03/11/2019 DX:Chronic pain Depression 03/11/2019 DX:Depression Diverticulosis of colon 03/11/2019 DX:Diver ticulosis of colon Gout 03/11/2019 DX:Gout; COMMENT : Knee, toe, ankle - colchicine History of substance abuse (CMS/HCC) 03/11/2019 DX:History of substance abuse (HCC); COMMENT: Opiates. On Suboxone Hypercholesterolemia 03/11/2019 DX:Hypercho lesterolemia Hypertension 03/11/2019 DX:Hypertension Indirect hyperbilirubinemia 03/11/2019 DX:I ndirect hyperbilirubinemia Lumbar spondylosis 03/11/2019 DX:Lumbar spo ndylosis Nephrolithiasis 03/11/2019 DX:Nephrolithias is Old myocardial infarction 03/11/2019 DX:Old myocardial infarction; COMMENT: CAD. LAD stent 2012. Rosacea 03/11/2019 DX:Rosacea Tubular adenoma of colon 03/11/2019 DX:Tubu lar adenoma of colon Family History Medical History Relation Name Comments Depression Father Melanoma, Alcoh olism Alzheimer's disease Maternal Grandmother Asthma, COPD Breast cancer Mother Colon cancer Paternal Grandfather Type 2 DM Relation Name Status Comments Father Maternal Grandmother Mother Paternal Grandfather Social History Tobacco Use Types Packs/Day Years Used Date Smoking Tobacco: Some Days Smokeless Tobacco: Current Alcohol Use Standard Drinks/Week Comments Yes 0 (1 standard drink = 0.6 oz pur e alcohol) Sex and Gender Information Value Date Recorded Sex Assigned at Not on file Gender Identity Not on file Sexual Orientation Not on file Job Start Date Occupation Industry Not on file Not on file Not on file Obstetrics History Plan of Treatment Health Maintenance Due Date Last Done Comments Pneumococcal Vaccine: 65+ Ye ars (1 of 2 - PCV) 1966 Pneumococcal Vaccine: Pediat rics (0 to 5 Years) and At-Risk Patients (6 to 64 Years) (1 of 2 - PCV) 1966 DTaP,Tdap,and Td Vaccines (2 - Td or Tdap) 06/30/2007 06/29/1997 Zoster Vaccines (1 of 2) 2009 Abdominal Aortic Aneurysm (A AA) Screen 04/17/2023 Cholesterol Screening (Lipid Panel) 04/17/2023 Colorectal Cancer Screening: Colonoscopy 04/17/2023 Depression Screening 04/17/2023 Hepatitis C Screening 04/17/2023 Hypertension/CHF/CAD Annual BMP Blood Test 04/17/2023 Medicare Annual Wellness Visit 04/17/2023 Social Influencers of Health Screening 04/17/2023 COVID-19 Vaccine ( - 2023-2 5 season) 2023 Influenza Vaccine (#1) 2023 01/09/2018 Falls Risk Assessment 02/03/2024 RSV Immunization Patients 60 + Years Old (1 - 1-dose 75+ series) 2034 HIB Vaccines Aged Out No longer eligi ble based on patient's age to complete this topic HPV Vaccines Aged Out No longer eligi ble based on patient's age to complete this topic Hepatitis A Vaccines Aged Out No long er eligible based on patient's age to complete this topic Hepatitis B Vaccines Aged Out No long er eligible based on patient's age to complete this topic IPV Vaccines Aged Out No longer eligi ble based on patient's age to complete this topic MMR Vaccines Aged Out No longer eligi ble based on patient's age to complete this topic Meningococcal ACWY Vaccine Aged Out N o longer eligible based on patient's age to complete this topic RSV Immunization Patients Un aleksandr 20 months Aged Out No longer eligible b ased on patient's age to complete this topic Varicella Vaccines Aged Out No longer eligible based on patient's age to complete this topic Care Teams Technical Expert Relationship Specialty Start Date End Date Marquita Puckett NP [address] [place] [facility] [place] [id number] PCP - General Nurse Practitioner 04/09/24
--- OUTSIDE RECORDS SUMMARY | 2024-04-24 10:48 | XMS_ITS | Encounter Summary ---
Author Organization [facility] Address [address] [place] [address] Care Team Providers Care Senior Accounts Payable Clerk Name Role Phone Marquita Puckett NP Primary Care Provider [phone] Encounter Details Date Type Department Care Team (Late st Contact Info) Description 04/17/2024 Telephone Gastroenterology - [address] [facility] [address] [place] [address] Keith Portillo MD [address] [facility] [address] [place] [address] Social History Tobacco Use Types Packs/Day Years [...] file Not on file Not on file documented as of this encounter Progress Notes * Danuta Saeed - 04/17/2024 8:44 AM EST EST PT, H&P IN MEDIA, CALL PT. documented in this encounter Plan of Treatment Not on file documented as of this encounter Visit Diagnoses Not on filedocumented in this encounter Care Teams Senior Accounts Payable Clerk Relationship Specialty Start Date End Date Marquita Puckett NP [address] [place] [id number] PCP - General Nurse Practitioner 04/09/24 documented as of this encounter
[2024-04-24 10:54] VITALS: BP 135/80; PULSE 82; TEMP 36; O2SAT 95; BMI 42.6
== END 2024-04-24 12:05 | disposition home or self-care (01) ==
LOC: HO.HBS 10:45
PROVIDERS: PCP Nurse Practitioner Family; Visit Provider Surgery
DX: E66.813 Obesity, class 3 (principal); Z68.41 Body mass index [BMI] 40.0-44.9, adult
CPT/HCPCS: 99204

== ENCOUNTER → 2024-04-24 10:45 | Outpatient (BNVA) | payer MEDICARE, MEDICAID, SELFPAY | PROVIDERS: PCP Nurse Practitioner Family; Visit Provider Surgery | DX: E66.01 Morbid (severe) obesity due to excess calories (principal); Z68.38 Body mass index [BMI] 38.0-38.9, adult | CPT/HCPCS: 99202 ==

== ENCOUNTER 2024-06-11 13:13 | Outpatient (AMB) | payer MEDICARE, MEDICAID, SELFPAY ==
[2024-06-11 13:25] VITALS: BP 122/78; PULSE 78; BMI 41.2
--- NOTE | 2024-06-11 13:25 | MHC.OFFVIS ---
Vital Signs 06/11/24 13:25 Height 5 ft 8 in Weight 271 lb 2.697 oz BMI 41.2 BP 122/78 Blood Pressure Location Lt brachial Position Sitting Pulse 78 Pulse Source Pulse Oximeter Intake Visit Reasons: 3 mth fu (rs) Allergies No Known Allergies Allergy (Verified 04/24/24 11:37) Medication List - Last Reconciled 06/11/24 by Eric Saeed MD aspirin 81 mg PO DAILY atenolol 75 mg PO DAILY atorvastatin 80 mg PO BEDTIME bupropion HCl XL 150 mg PO QAM clopidogrel 75 mg PO DAILY nitroglycerin 0.4 mg sublingual Q5M PRN sertraline 100 mg PO DAILY HPI Comments Details: Constantino returns for follow-up. In the past, he was seen regarding coronary artery disease. In 04/2023, he had NSTEMI in setting of cocaine use. Underwent RCA stenting with RPDA angioplasty. Around the time, he was quite noncompliant but now he states he is taking his meds regularly. When questioned about drugs, he is denying any recent use. With regard to smoking, he states he has not smoked in the last few months. Overall, he states he feels okay. Last time, he was complaining of some chest pains on lying down but today he states they are actually better. They are much less frequent. Nonexertional. Not clear if they are cardiac versus noncardiac. [facility] Medical History (Updated 04/24/24 @ 11:42 by Sal Rivero MD) Anxiety Depression Hyperlipidemia Morbid obesity BMI 40.0-44.9, adult Noncompliance NSTEMI (non-ST elevated myocardial infarction) Atherosclerotic cardiovascular disease Myocardial infarct Substance abuse Renal colic High cholesterol Hypertension Surgical History Hx of colonoscopy Family History Mother No problems noted. Father No problems noted. Social History (Updated 04/24/24 @ 10:53 by Marina Aguilar CMA) Alcohol intake: current Alcohol intake frequency: a few times a month Alcohol type: beer Patient Tobacco Use Status: Former Tobacco user Substance Use Type: Crack/Cocaine and Heroin Review of Systems Const Denies weakness ENT Denies dizziness Card Denies chest pain, Denies chest pain with activity, Denies syncope, Denies rapid heart rate, Denies pedal edema, Denies edema, Denies leg edema, Denies lightheadedness, Denies palpitations, Denies dyspnea, Denies dyspnea on exertion and Denies orthopnea Resp Denies cough, Denies dyspnea and Denies dyspnea on exertion GI Denies hematochezia and Denies change in stool character Musc Denies abnormal gait, Denies muscle cramps, Denies muscle weakness, Denies numbness, Denies radiating pain into limb and Denies tingling Neuro Denies abnormal gait, Denies dizziness, Denies syncope, Denies numbness, Denies tingling and Denies weakness Endo Denies palpitations Physical Exam Vital Signs: Last Vital Signs Pulse 78 06/11/24 13:25 BP 122/78 06/11/24 13:25 BMI result Body Mass Index 41.2 Const General: comfortable and no acute distress Orientation/consciousness: patient oriented x3 HEENT Other: Unremarkable Head: Yes normal to inspection Neck Neck: Yes normal visual inspection Chest Chest palpation & inspection: normal inspection of the chest Resp Auscultation: clear to auscultation bilaterally Cardio Palpation: normal PMI Heart sounds: S1 normal heart sound present, S2 normal heart sound present, no gallops, no murmurs and no rubs GI Palpation (GI): Soft to palpation Back/Spine/Pelvis Other: unremarkable Skin General skin exam: no rashes or lesions noted Neuro General: patient oriented x3 Extrem General: Yes normal to inspection Psych Mental Status: mental status grossly normal Assessment & Plan Assessment & Plan (1) Atherosclerotic cardiovascular disease: Code(s): I25.10 - Atherosclerotic heart disease of [place] coronary artery without angina pectoris Category: Medical (2) NSTEMI (non-ST elevated myocardial infarction): Code(s): I21.4 - Non-ST elevation (NSTEMI) myocardial infarction Category: Medical (3) Hypertension: Code(s): I10 - Essential (primary) hypertension Category: Medical (4) Substance abuse: Code(s): F19.10 - Other psychoactive substance abuse, uncomplicated Category: Medical (5) Noncompliance: Code(s): Z91.199 - Patient's noncompliance with other medical treatment and regimen due to unspecified reason Category: Medical Plan Cardiac testing reviewed. Cardiac catheterization from 04/2023-left main unremarkable. LAD with an apical lesion in the very distal aspect. Medium caliber diagonal with mid-vessel occluded stent. Circumflex unremarkable. RCA with 50% mid-vessel plaque and severe 80% mid RPDA lesion. Status post RCA PCI and RPDA angioplasty. Echocardiogram with LVEF 55-60%. Probable distal anterior hypokinesis. [id number] aortic regurgitation. Repeat echocardiogram with LVEF of 58%. Aortic/mitral calcification. Myocardial perfusion imaging study shows mild intensity basal inferior ischemia. Overall, continue to treat his stable coronary disease. With regard to his nonexertional pains, not clear if it is anginal versus noncardiac. Okay to use sublingual nitroglycerin as needed. If they do not resolve, advised to seek emergency help. With regard to medications, okay to continue aspirin/Plavix for the foreseeable future. Continue beta-blockers and statins. Abstinence from smoking/drugs. Follow-up in 6 months. He will contact us with any interim concerns or seek emergency help as needed. Coding Level of Care Code Est Pt Level 4 (42642) Complex EM visit Add On G2211 Diagnoses Atherosclerotic cardiovascular disease I25.10 NSTEMI (non-ST elevated myocardial infarction) I21.4 Hypertension I10 Substance abuse F19.10 Noncompliance Z91.199
--- OUTSIDE RECORDS SUMMARY | 2024-06-11 15:43 | XMS_ITS | Encounter Summary ---
Author Organization [facility] Address [address] [place] [address] Care Team Providers Care Grinder Set Up Operator Universal Name Role Phone Marquita Puckett NP Primary Care Provider [phone] Encounter Details Date Type Department Care Team ([facility] Contact Info) Description 05/21/2024 Telephone Gastroenterology - 299 [facility] [address] [phone] Keith Portillo MD [address] [id number] Social History Tobacco Use Types Packs/Day Years Used Date Smoking Tobacco: Some Days Smokeless Tobacco: Current Alcohol Use Standard Drinks/Week Comments Yes 0 (1 standard drink = 0.6 oz pur e alcohol) Sex and Gender Information Value Date Recorded Sex Assigned at Not on file Legal Sex Male 5:00 AM EST Gender Identity Not on file Sexual Orientation Not on file documented as of this encounter Progress Notes * Pat Borges - 05/21/2024 11:58 AM EST Pt calling to book colon, please call documented in this encounter Plan of Treatment Upcoming Encounters Date Type Department Care Team (Late Contact Info) Description 07/08/2024 3:30 PM EDT Hospital Encounter [facility] Endoscopy [address] [place] [phone] Keith Portillo MD [address] [address] documented as of this encounter Visit Diagnoses Not on filedocumented in this encounter Care Teams Grinder Set Up Operator Universal Relationship Specialty Start Date End Date Marquita Puckett NP [facility] [address] [place] [address] PCP - General Nurse Practitioner 04/09/24 documented as of this encounter
--- OUTSIDE RECORDS SUMMARY | 2024-06-11 15:43 | XMS_ITS | Clinical Summary ---
Author Organization [facility] [address] [facility] [address] [place] Address [address] [place] [address] Phone Care Team Providers Care Ticket Worker Name Role Phone Marquita Puckett NP Primary Care Provider [phone] Encounters Date Type Department Care Team Description 06/11/2024 Telephone Gastroenterology - [place] [address] [facility] [address] [place] [phone] Jo-Ann Davis LPN Anticoagulation (Colonoscopy on 07/08/[address] Portillo) 05/21/2024 Telephone Gastroenterology - 299 [facility] 299 [facility] [address] [place] [phone] Keith Portillo MD 04/17/2024 Telephone Gastroenterology - 299 [facility] 299 [facility] [address] [place] [phone] Keith Portillo MD from Last 3 Months [...] ankle - colchicine History of substance abuse 03/11/2019 DX:Hi story of substance abuse (HCC); COMMENT: Opiates. On Suboxone Hypercholesterolemia 03/11/2019 DX:Hypercho lesterolemia Hypertension 03/11/2019 DX:Hypertension Indirect hyperbilirubinemia 03/11/2019 DX:I ndirect hyperbilirubinemia Lumbar spondylosis 03/11/2019 DX:Lumbar spo ndylosis Nephrolithiasis 03/11/2019 DX:Nephrolithias is Old myocardial infarction 03/11/2019 DX:Old myocardial infarction; COMMENT: CAD. LAD stent 2011. Rosacea 03/11/2019 DX:Rosacea Tubular adenoma of colon [...] on file Sexual Orientation Not on file Obstetrics History Plan of Treatment Upcoming Encounters Date Type Department Care Team (Late st Contact Info) Description 07/08/2024 3:30 PM EDT Hospital Encounter [facility] Endoscopy [address] [place] [phone] Keith Portillo MD 229 [facility] [address] [place] [address] Health Maintenance Due Date Last Done Comments Pneumococcal Vaccine: 50+ Ye ars (1 of 2 - PCV) 1978 Pneumococcal Vaccine: Pediat rics (0 to 5 Years) and At-Risk Patients (6 to 64 Years) (1 of 2 - PCV) 1978 DTaP,Tdap,and Td Vaccines (2 - Td or Tdap) 06/30/2007 06/29/1997 Zoster Vaccines (1 of 2) 2009 Abdominal Aortic Aneurysm (A AA) Screen 04/17/2023 Cholesterol Screening (Lipid Panel) 04/17/2023 Colorectal Cancer Screening: Colonoscopy 04/17/2023 Depression Screening 04/17/2023 Hepatitis C Screening 04/17/2023 Hypertension/CHF/CAD Annual BMP Blood Test 04/17/2023 Medicare Annual Wellness Visit 04/17/2023 Social Influencers of Health Screening 04/17/2023 COVID-19 Vaccine (1 - 2023-2 5 season) 2023 Influenza Vaccine [...] patient's age to complete this topic Meningococcal B Vacine Aged Out No lo nger eligible based on patient's age to complete this topic RSV Immunization Patients Un aleksandr 20 months Aged Out No longer eligible b ased on patient's age to complete this topic Varicella Vaccines Aged Out No longer eligible based on patient's age to complete this topic Insurance MEDICAID - [place] MEDICARE Care Teams Ticket Worker Relationship Specialty Start Date End Date Marquita Puckett NP [facility] [address] [facility] [place] [id number] PCP - General Nurse Practitioner 04/09/24
--- OUTSIDE RECORDS SUMMARY | 2024-06-11 15:43 | XMS_ITS | Encounter Summary ---
Author Organization [facility] Address [address] [place] [address] Care Team Providers Care Events Director Name Role Phone Marquita Puckett RENAN Primary Care Provider Reason for Visit * Reason Onset Date Comments Anticoagulation 06/11/[address] Portillo Encounter Details Date Type Department Care Team (Late Contact Info) Description 06/11/2024 Telephone Gastroenterology - [place] 175 [facility] 175 [facility] [address] [place] [address] Jo-Ann Davis LPN Anticoagulation (Colonoscopy on 07/08/[address] Portillo) Social History Tobacco Use Types Packs/Day Years [...] as of this encounter Progress Notes * Jo-Ann Davis LPN - 06/11/2024 3:00 PM EDT Colonoscopy on 07/08/[address] Portillo Left msg for pt to call back, need to know who prescribes plavix. documented in this encounter Plan of Treatment Upcoming Encounters Date Type Department Care Team (Late Contact Info) Description 07/08/2024 3:30 PM EDT Hospital Encounter [facility] Endoscopy [address] [place] [phone] Keith Portillo MD 229 [facility] [address] [place] [address] documented as of this encounter Visit Diagnoses Not on filedocumented in this encounter Care Teams Events Director Relationship Specialty Start Date End Date Marquita Puckett NP [address] [place] [phone] PCP - General Nurse Practitioner 04/09/24 documented as of this encounter
== END 2024-06-11 13:42 | disposition home or self-care (01) ==
LOC: HO.HCS 13:14
PROVIDERS: PCP Nurse Practitioner Family; Visit Provider Internal Medicine
DX: I25.10 Atherosclerotic heart disease of native coronary artery without angina pectoris (principal); I21.4 Non-ST elevation (NSTEMI) myocardial infarction; I10 Essential (primary) hypertension; F19.10 Other psychoactive substance abuse, uncomplicated; Z91.199 Patient's noncompliance with other medical treatment and regimen due to unspecified reason
CPT/HCPCS: 99214; G2211

== ENCOUNTER → 2024-06-11 13:13 | Outpatient (BNVA) | payer MEDICARE, MEDICAID, SELFPAY | PROVIDERS: PCP Nurse Practitioner Family; Visit Provider Internal Medicine | DX: I25.10 Atherosclerotic heart disease of native coronary artery without angina pectoris (principal); I25.2 Old myocardial infarction; I10 Essential (primary) hypertension; F19.10 Other psychoactive substance abuse, uncomplicated; Z91.199 Patient's noncompliance with other medical treatment and regimen due to unspecified reason | CPT/HCPCS: 99212 ==

== ENCOUNTER 2025-01-28 10:04 | Inpatient (IN) | payer OTHER, MEDICAID, SELFPAY ==
--- NOTE | ~2025-01-28 | NM_ITS ---
EXAMINATION: Nuclear medicine hepatobiliary scan. CLINICAL INDICATION: Right upper quadrant pain. Evaluate for a calculus cholecystitis. COMPARISON: Ultrasound abdomen limited 01/28/2025. TECHNIQUE: Following intravenous administration of 5 mCi of 99m technetium mebrofenin, imaging over the right upper quadrant was obtained up to 60 minutes. Patient refused any more imaging. Exam was terminated. FINDINGS: There is normal hepatic uptake without focal defect. CBD is visualized by 20 minutes. Cystic duct and gallbladder is visualized at approximately 33 minutes. Small bowel is visualized by 27 minutes. NM/NM hepatobiliary wo pharm IMPRESSION: Normal hepatobiliary scan. Electronically signed by: Jose Enrique Prabhakar MD 01/29/2025 07:02 AM [facility]
--- NOTE | ~2025-01-28 | CT_ITS ---
EXAMINATION: CT ABDOMEN PELVIS WITH IV CONTRAST HISTORY: RUQ pain COMPARISON: Previous HIDA scan from yesterday, limited abdominal ultrasound from yesterday and CT of the abdomen and pelvis January 2020 TECHNIQUE: CT scan of the abdomen and pelvis was performed following administration of 85 mL Omnipaque 350 using standard departmental protocol. Coronal and sagittal reformatted images were generated and reviewed. This CT exam was performed with one or more of the following dose reduction techniques: automated exposure control, adjustment of the mA and/or kV according to patient size, use of iterative reconstruction technique. DLP: 710 mGy-cm FINDINGS: LOWER CHEST: The visualized lung bases are clear. There is no pleural effusion. CARDIOVASCULATURE: The heart is normal in size. There is no pericardial effusion. LIVER: The liver is normal in size and contour. No liver mass is identified. The hepatic and portal veins are patent. GALLBLADDER / BILE DUCTS: Dilated gallbladder measuring 11.6 x 5.6 x 6 cm in dimension. No gallstones. No gallbladder wall thickening. No pericholecystic fluid. Mild intra and extrahepatic biliary duct dilatation. The common bile duct measures 1.4 cm. No common bile duct stone is appreciated by CT. SPLEEN: The spleen is normal in size. No focal splenic lesion is identified. PANCREAS: The pancreas is unremarkable in appearance. No mass or main pancreatic duct dilatation. ADRENAL GLANDS: Within normal limits. KIDNEYS/RETROPERITONEUM: Small bilateral renal stones. No hydronephrosis and ureteral dilatation or ureteral stone. Small low-attenuation subcentimeter lesions in the lower pole of the right kidney and upper pole of the left kidney. These are difficult to accurately characterize due to small size. LYMPH NODES: There is a enlarged lymph node adjacent to the head of the pancreas or periportal region. This measures 1.3 cm in short axis axial image 20 series 3. There are other smaller peripancreatic and gastrohepatic portacaval retroperitoneal and small bowel mesentery lymph nodes. VASCULATURE: Mild Atherosclerotic disease. No aneurysm. MESENTERY/PERITONEUM: No free fluid. No masses. There is no free intraperitoneal gas. STOMACH: Normal SMALL BOWEL: The small bowel is normal in caliber. COLON: Diverticulosis of the colon. No evidence of diverticulitis. APPENDIX: Normal. URINARY BLADDER/PELVIC ORGANS: The urinary bladder is unremarkable. The prostate gland does not appear enlarged. BONES / SOFT TISSUES: Degenerative changes of the spine. Umbilical hernia containing fat. CT/CT abdomen pelvis w IV con IMPRESSION: Dilated gallbladder. No gallstones or evidence of cholecystitis seen. Intra-and extrahepatic biliary duct dilatation, common bile duct measuring 1.4 cm. Prominent peripancreatic/periportal lymph node. These findings are new from January 2020 exam. Recommend follow-up MR of the abdomen with and without contrast and MRCP for further evaluation. Bilateral nonobstructing renal stones. Diverticulosis of the colon. Electronically signed by: Sidra Gil MD 01/29/2025 05:02 PM [facility]
--- NOTE | ~2025-01-28 | US_ITS ---
EXAMINATION: US ABDOMEN LIMITED CLINICAL INFORMATION: Right upper quadrant pain. COMPARISON: Previous CT of the abdomen and pelvis January 2020 TECHNIQUE: Real-time imaging of the right upper quadrant abdominal viscera. FINDINGS: PANCREAS: Not seen due to bowel gas. LIVER: The liver is slightly enlarged. The liver contour is normal. Parenchymal echogenicity is increased. Hypoechoic areas adjacent to the gallbladder, question areas of focal fatty sparing versus reactive changes in the liver related to the gallbladder. No focal hepatic lesion. There is no intrahepatic biliary duct dilatation seen. GALLBLADDER: The gallbladder is enlarged measuring 12 x 5.6 x 5.8 cm in dimension. No gallstones are seen. Slightly thickened gallbladder wall measuring 4 mm, upper normal 3 mm. No gallbladder wall edema or pericholecystic fluid. Positive sonographic Laughlin's sign. COMMON BILE DUCT: Not well seen but slightly dilated measuring 0.9 cm in diameter. RIGHT KIDNEY: Not imaged. FREE FLUID: None. US/US abdomen limited IMPRESSION: Distended gallbladder. No gallstones seen. Positive sonographic Laughlin's sign and minimally thickened gallbladder wall. Acalculous cholecystitis should be considered. No intrahepatic biliary duct dilatation. Poorly visualized but slightly dilated common bile duct measuring 9 mm. Consider follow-up HIDA scan or MRCP. Slightly enlarged echogenic liver. Hypoechoic areas adjacent to the gallbladder, question focal fatty sparing versus reactive changes in the liver related to gallbladder disease. This could be further assessed at time of MRI as well. Electronically signed by: Sidra Gil MD 01/28/2025 11:04 AM [facility]
--- NOTE | ~2025-01-28 | XR_ITS ---
EXAMINATION: XR CHEST CLINICAL INFORMATION: chest pain COMPARISON: [place] 07/07/2023. TECHNIQUE: PA and lateral views. FINDINGS: Poor inspiration. Pulmonary reticular pattern. No consolidation, pleural effusion or pneumothorax. Cardiomediastinal silhouette size is normal with a prominent aortic arch and round cardiac. Multilevel thoracolumbar spondylosis. Degenerative changes both shoulders. XR/XR chest 2V IMPRESSION: Chronic interstitial lung disease without acute airspace disease. Electronically signed by: David Pulliam MD 01/28/2025 11:22 AM [facility]
[2025-01-28 10:09] VITALS: BP 182/86; PULSE 90; RESP 20; TEMP 36.7; O2SAT 94; BMI 38.1
--- NOTE | 2025-01-28 10:10 | ECG_ITS ---
Test Reason : ABD PAIN Blood Pressure : */* mmHG Vent. Rate : 81 BPM Atrial Rate : 81 BPM P-R Int : 168 ms QRS Dur : 94 ms QT Int : 376 ms P-R-T Axes : 16 -13 36 degrees QTcB Int : 436 ms Normal sinus rhythm Normal ECG When compared with ECG of 12-May-2023 23:44, Non-specific change in ST segment in Inferior leads T wave inversion no longer evident in Inferior leads Referred By: Jennifer Santos Electronically Signed By: ALEXIS ALAS MD
--- NOTE | 2025-01-28 10:11 | ED.ABDPAIN ---
HPI - Abdominal Pain General Chief Complaint: Abdominal Pain Stated Complaint: Stomach Pain Time Seen by Provider: 01/28/25 10:25 Source: patient Mode of arrival: ambulatory Limitations: no limitations History of Present Illness ED Provider: HPI narrative: 64-year-old male presenting with right upper quadrant pain for the past 2 days, no chest pain no shortness of breath no pleurisy no hemoptysis, states movement and position makes this pain worse, this was not related to food. There was no trauma, denies obstipation. Related Data Home Medications ?Medication ?Instructions ?Recorded ?Confirmed atenolol 50 mg tablet 75 mg PO DAILY 06/13/23 01/28/25 atorvastatin 80 mg tablet 80 mg PO BEDTIME 06/13/23 01/28/25 bupropion HCl 150 mg 24 hr tablet, 150 mg PO DAILY 06/13/23 01/28/25 extended release sertraline 100 mg tablet 100 mg PO DAILY 06/13/23 01/28/25 fluticasone propionate 50 2 spray intranasal BID 01/28/25 01/28/25 mcg/actuation nasal spray,suspension multivitamin 1 tab PO DAILY 01/28/25 01/28/25 semaglutide 0.25 mg or 0.5 mg (2 2 mg subcut FR 01/28/25 01/28/25 mg/3 mL) subcutaneous pen injector (Ozempic) Previous Rx's ?Medication ?Instructions ?Recorded nitroglycerin 0.4 mg sublingual 0.4 mg sublingual Q5M PRN chest 04/24/24 tablet pain #30 tabs clopidogrel 75 mg tablet 75 mg PO DAILY #90 tabs 05/08/24 Allergies Allergy/AdvReac Type Severity Reaction Status Date / Time No Known Allergies Allergy Verified 01/28/25 10:11 Review of Systems Constitutional: Reports as per HPI [facility] Past Medical History Medical History (Updated 01/28/25 @ 18:08 by Montse Barreto RN) Anxiety Depression Hyperlipidemia Morbid obesity BMI 40.0-44.9, adult Noncompliance NSTEMI (non-ST elevated myocardial infarction) Atherosclerotic cardiovascular disease Myocardial infarct Substance abuse Renal colic High cholesterol Hypertension Surgical History Hx of colonoscopy Family History Family History Mother No problems noted. Father No problems noted. Social History Social History (Updated 04/24/24 @ 10:53 by Marina Aguilar CMA) Alcohol intake: current Alcohol intake frequency: a few times a month Alcohol type: beer Patient Tobacco Use Status: Former Tobacco user Substance Use Type: Crack/Cocaine and Heroin Do you feel safe in your current relationship?: No Current Relationship Advance Directives: No Advance Directives Information Provided: No Do you have a plan to hurt others: No Plan Recently lost weight without trying: No Poor oral hygiene: No Physical Exam ED Exam Exam: General: ?Appears of stated age ? ?PERRLA, EOMI, MMM, no scleral icterus ? Neck: Supple, no LAD ? ?CV: RRR, no obvious murmurs appreciated ? ?Resp: ?No wheezing rales rhonchi no stridor moving air well ? Abd: ?Bowel sounds are present, right upper quadrant tenderness with voluntary guarding ? ?MSK: FROM, strength 5/5 all extremities ? Skin: Warm, dry, intact, no jaundice ? ?Neuro: ?Alert and oriented x3, moving upper and lower extremities symmetrically, no obvious facial asymmetry noted, cranial nerves 2-12 intact Vital Signs: Vital Signs - 24 hr 01/28/25 10:09 01/28/25 11:28 Temperature 98.0 F Pulse Rate 90 82 Respiratory Rate 20 17 Blood Pressure 182/86 H 145/70 H Pulse Oximetry 94 94 Oxygen Delivery Method Room Air Room Air BMI result Body Mass Index 38.1 Course Course Course Narrative: This is a Rapid Medical Examination (RME) performed by Avani Santos PA-C in triage. Full HPI, ROS, assessment and treatment plan per primary provider in the Main ED. Hx: 64 yo M here for eval of RUQ pain x2 days, constant, worse w/ movement, deep breathing. not worse w/ eating. called PCP - they're worried about my heart , hx DE x2. doesn't feel similar. still has GB. Plan: labs, ekg Medical Decision Making Medical Decision Making [facility] Narrative: 10:58 AM 01/28/2025 (Dr. Guilherme Shaikh): Patient is presenting with right upper quadrant pain tenderness, differential diagnosis as below, we will hold off Toradol until I make sure that this is not related to DE, he is ECG however is unremarkable, he does have history of ACS and this is unlikely this however but I will check cardiac enzymes given his history, pneumothorax, musculoskeletal pain is a consideration, he has had CT in 2019 in our records without any evidence for AAA, he did have history of kidney stones but the does not appear to present similar 12:24 PM 01/28/2025 (Dr. Guilherme Shaikh): I sent text to Dr. Walsh Differential Diagnosis Differential Diagnoses: The differential diagnosis associated with the presentation includes (Cholecystitis, pancreatitis, hepatitis, gastritis, cholangitis, choledocholithiasis, SBO, ACS) Admission/Observation Consideration of admission/observation: Escalation of care including admission/observation considered Consult Healthcare Provider Management of the patient was discussed with: Reed Polisher Lab Data MDM Lab Attestation statement: I reviewed the patient's lab results. 01/28/25 10:24 01/28/25 10:24 Labs: Lab Results 01/28/25 Range/Units 10:24 WBC 8.3 (4.8-10.8) X10*3/uL RBC 5.35 D (4.60-5.80) X10*6/uL Hgb 15.5 D (14.0-18.0) g/dl Hct 46.0 D (42.0-52.0) % MCV 86.0 (80.0-98.0) fL MCH 29.0 (27.0-33.0) pg MCHC 33.7 (31.0-36.0) g/dl RDW 13.7 (11.0-16.0) % Plt Count 206 (160-400) X10*3/uL MPV 10.3 (9.4-12.4) fL Immature Gran % (Auto) 0.8 H (0.0-0.4) % Neut % (Auto) 79.2 H (45-73) % Lymph % (Auto) 11.1 L (20-40) % [place] % (Auto) 7.1 (2-11) % Eos % (Auto) 1.4 (0-4) % Baso % (Auto) 0.4 (0-2) % Lymph # (Auto) 0.9 L (1.2-4.9) X10*3/uL [place] # (Auto) 0.6 (0.1-1.2) X10*3/uL Eos # (Auto) 0.1 (0.0-0.4) X10*3/uL Baso # (Auto) 0.0 (0.0-0.2) X10*3/uL Abs Immat Gran (auto) 0.07 H (0.00-0.03) X10*3/uL Absolute Neuts (auto) 6.6 (2.0-8.3) x10*3/uL Absolute Nucleated RBC 0.000 (0.0-0.012) X10*3/uL Nucleated RBC % (auto) 0.0 (0.0-0.2) /100WBC Sodium 138 (135-145) mmol/L Potassium 4.2 (3.3-5.1) mmol/L Chloride 101 (96-108) mmol/L Carbon Dioxide 26 (22-29) mmol/L Anion Gap 15 (12-20) BUN 15 (9-16) mg/dL Creatinine 1.12 (0.5-1.4) mg/dL Estim Creat Clear Calc 80.5 Estimated GFR > 60 Random Glucose 166 H (60-115) mg/dL Calcium 9.9 (8.4-10.2) mg/dL Magnesium 1.9 (1.6-2.6) mg/dL Total Bilirubin 1.5 H (0.0-1.0) mg/dL Direct Bilirubin 0.4 (0.0-0.5) mg/dL AST 157 H (5-37) U/L ALT 186 H (0-40) U/L Alkaline Phosphatase 253 H (39-117) U/L Troponin I High Sens < 2.7 (<3.5-35.0) ng/L Total Protein 7.9 (6.5-8.0) g/dL Albumin 4.8 (3.5-5.0) g/dL Lipase 19 (8-78) U/L Independent Interpretation I performed an independent interpretation of an: EKG (81 beats per minute otherwise normal ECG without dysrhythmia, AV minerva blocks or ST-T changes to suspect underlying ACS, my independent interpretation) and Plain X-Ray (My independent chest xray interpretation: Lungs: Lungs are clear bilaterally without evidence of focal consolidation, pleural effusion, or pneumothorax. Cardiac silhouette is unremarkable, no obvious mediastinal widening, no obvious bony abnormalities such as fractures. Impression: Normal chest X-r) Radiology Impression Discussion of test interpretation with radiology: I have reviewed the radiologist's reading. Radiologist Impression: MPRESSION: Distended gallbladder. No gallstones seen. Positive sonographic Laughlin's sign and minimally thickened gallbladder wall. Acalculous cholecystitis should be considered. No intrahepatic biliary duct dilatation. Poorly visualized but slightly dilated common bile duct measuring 9 mm. Consider follow-up HIDA scan or MRCP. Medications Administered Generic Name Dose Route Start Last Admin Trade Name Freq PRN Reason Stop Dose Admin Piperacillin Sod/Tazobactam 50 mls @ 100 mls/hr 01/28/25 17:00 01/28/25 17:31 Sod 3.375 gm/ Sodium Chloride IV 100 mls/hr Q6H SALLIE Administration Sodium Chloride 3 ml 01/28/25 16:37 01/28/25 16:50 0.9 % Sodium Chloride Flush 3 Ml Syringe IVFLUSH 3 ml QSHIFT SALLIE Administration Discontinued Medications Generic Name Dose Route Start Last Admin Trade Name Freq PRN Reason Stop Dose Admin Hydromorphone HCl 0.5 mg 01/28/25 16:37 01/28/25 16:51 Hydromorphone Hcl 1 Mg/Ml Syringe IVPUSH 01/28/25 16:38 0.5 mg ONCE ONE Administration Protocol Ketorolac Tromethamine 15 mg 01/28/25 12:29 01/28/25 12:52 Ketorolac Tromethamine 15 Mg/Ml Vial IVPUSH 01/28/25 12:30 15 mg ONCE ONE Administration Morphine Sulfate 4 mg 01/28/25 10:51 01/28/25 11:25 Morphine Sulfate 4 Mg/Ml Cartridge IVPUSH 01/28/25 10:52 4 mg ONCE ONE Administration Protocol Morphine Sulfate 4 mg 01/28/25 12:29 01/28/25 12:52 Morphine Sulfate 4 Mg/Ml Cartridge IVPUSH 01/28/25 12:30 4 mg ONCE ONE Administration Protocol Critical Care Time Critical Care Time Critical Care Time: Yes Total Critical Care Time: 32 Attestation: Time is exclusive of separately billable procedures. Time includes: direct patient care, patient reassessment, coordination of patient care, interpretation of data (laboratory data, pulse oximetry, arterial blood gases and chest xrays), review of patient's medical records, medical consultation and documentation of patient care. Procedures excluded from critical care time: central intravenous line placement and electrocardiography. Discharge Plan Discharge Clinical Impression: Right upper quadrant abdominal pain Patient Disposition: Admitted As Inpatient Interventions: Admission Worksheet (ED) Last Done: 01/28/25 15:56 Discharge Date/Time: 01/28/25 18:08
[2025-01-28 10:28] LABS: MANUAL DIFF FLAG NO
[2025-01-28 10:29] LABS: Hematocrit 46.0 % (42.0-52.0); Hemoglobin 15.5 g/dl (14.0-18.0); Imm Gran Abs Auto 0.07 X10*3/uL (0.00-0.03); Imm Gran Pct Auto 0.8 % (0.0-0.4); Lymphocytes Absolute Auto 0.9 X10*3/uL (1.2-4.9); Mean Corpuscular HGB Conc 33.7 g/dl (31.0-36.0); Mean Corpuscular Hemoglobin 29.0 pg (27.0-33.0); Mean Corpuscular Volume 86.0 fL (80.0-98.0); NRBC Abs Auto 0.000 X10*3/uL (0.0-0.012); NRBC Pct Auto 0.0 /100WBC (0.0-0.2); Platelet Count 206 X10*3/uL (160-400); Red Blood Count 5.35 X10*6/uL (4.60-5.80); White Blood Count 8.3 X10*3/uL (4.8-10.8)
[2025-01-28 10:48] LABS: Alanine Aminotransferase 186 U/L (0-40); Albumin Level 4.8 g/dL (3.5-5.0); Alkaline Phosphatase 253 U/L (39-117); Anion Gap 15 (12-20); Aspartate Amino Transferase 157 U/L (5-37); Blood Urea Nitrogen 15 mg/dL (9-16); Calcium 9.9 mg/dL (8.4-10.2); Carbon Dioxide 26 mmol/L (22-29); Chloride 101 mmol/L (96-108); Creatinine Clr Calc Pharmacy 80.5; Estimated Glomerular Filt Rate > 60; Lipase 19 U/L (8-78); Magnesium 1.9 mg/dL (1.6-2.6); Potassium 4.2 mmol/L (3.3-5.1); Sodium 138 mmol/L (135-145); Total Protein 7.9 g/dL (6.5-8.0)
[2025-01-28 10:56] LABS: Troponin-I High Sensitivity < 2.7 ng/L (<3.5-35.0)
[2025-01-28 11:28] VITALS: BP 145/70; PULSE 82; RESP 17; O2SAT 94
--- NOTE | 2025-01-28 13:11 | PM.CNGS ---
History of Present Illness Consult details Consult date: 01/28/25 Reason for consult: other (possible acute cholecystitis) Narrative: 64 year old male with PMH significant for CAD, NSTEMI in setting of cocaine use in 04/2023 s/p stenting, HTN, hyperlipidemia, nephrolithiasis presenting with complaints of RUQ abdominal pain. He reports he felt generally unwell on Sunday night and when he awoke Sunday morning he had RUQ pain. The pain has been constant and sharp in nature. It remains moderate in severity. He called his PCP who instructed him to come to the ED for evaluation. Work up in the ED included CBC, BMP, LFTs which were significant for mildly elevated LFTs with t bili of 1.5, AST/ALT 157/186. No leukocytosis. ABD US was performed which showed a distended gallbladder without gallstones with very mild thickening without pericholecystic fluid, CBD mildly dilated. He reports the pain is somewhat improved now. He was able to eat toast this morning without worsening in his pain. He denies fevers, chills, nausea, vomiting, diarrhea, chest pain, shortness of breath. He denies prior abd surgery. He reports occasional ETOH use. He has history of cocaine and opioid use but reports he has been clean. Review of Systems Review of Systems: Yes all other systems are reviewed and are negative PMFSH Past Medical History Medical History (Updated 01/28/25 @ 13:24 by Vidhi Green PA-C) Anxiety Depression Hyperlipidemia Morbid obesity BMI 40.0-44.9, adult Noncompliance NSTEMI (non-ST elevated myocardial infarction) Atherosclerotic cardiovascular disease Myocardial infarct Substance abuse Renal colic High cholesterol Hypertension Family History Family History Mother No problems noted. Father No problems noted. Surgical History Surgical History Hx of colonoscopy Social History Social History (Updated 04/24/24 @ 10:53 by Marina Aguilar CMA) Alcohol intake: current Alcohol intake frequency: a few times a month Alcohol type: beer Patient Tobacco Use Status: Former Tobacco user Substance Use Type: Crack/Cocaine and Heroin Advance Directives: No Advance Directives Information Provided: No Meds Allergies Allergy/AdvReac Type Severity Reaction Status Date / Time No Known Allergies Allergy Verified 01/28/25 10:11 Home Medications ?Medication ?Instructions ?Recorded ?Confirmed ?Last Taken ?Type aspirin 81 mg tablet,delayed 81 mg PO DAILY 06/13/23 06/11/24 Unknown History release atenolol 50 mg tablet 75 mg PO DAILY 06/13/23 06/11/24 Unknown History atorvastatin 80 mg tablet 80 mg PO BEDTIME 06/13/23 06/11/24 Unknown History bupropion HCl 150 mg 24 hr tablet, 150 mg PO QAM 06/13/23 06/11/24 Unknown History extended release sertraline 100 mg tablet 100 mg PO DAILY 06/13/23 06/11/24 Unknown History Physical Exam Vital Signs: Vital Signs: Last Vital Signs Temp 98.0 F 01/28/25 10:09 Pulse 82 01/28/25 11:28 Resp 17 01/28/25 11:28 BP 145/70 H 01/28/25 11:28 Pulse Ox 94 01/28/25 11:28 O2 Del Method Room Air 01/28/25 11:28 BMI result Body Mass Index 38.1 Const: General: comfortable, no acute distress and alert Orientation/consciousness: patient oriented x3 Resp: Effort & Inspection: normal respiratory effort, able to speak in complete sentences and not tachypneic GI: Other: protuberant abdomen very mild RUQ tenderness to deep palpation, negative solomon sign Palpation (GI): no guarding and not rigid Percussion: Yes normal to percussion Skin: General skin exam: no rashes or lesions noted and no jaundice Neuro: General: patient oriented x3 and moves all extremities Results Labs 01/28/25 10:24 01/28/25 10:24 Labs: Abnormal lab results 01/28/25 Range/Units 10:24 Immature Gran % (Auto) 0.8 H (0.0-0.4) % Neut % (Auto) 79.2 H (45-73) % Lymph % (Auto) 11.1 L (20-40) % Lymph # (Auto) 0.9 L (1.2-4.9) X10*3/uL Abs Immat Gran (auto) 0.07 H (0.00-0.03) X10*3/uL Random Glucose 166 H (60-115) mg/dL Total Bilirubin 1.5 H (0.0-1.0) mg/dL AST 157 H (5-37) U/L ALT 186 H (0-40) U/L Alkaline Phosphatase 253 H (39-117) U/L Short CBC 01/28/25 Range/Units 10:24 WBC 8.3 (4.8-10.8) X10*3/uL Hgb 15.5 D (14.0-18.0) g/dl Hct 46.0 D (42.0-52.0) % Plt Count 206 (160-400) X10*3/uL BMP 01/28/25 10:24 Sodium 138 Potassium 4.2 Chloride 101 Carbon Dioxide 26 BUN 15 Creatinine 1.12 Calcium 9.9 Liver Function 01/28/25 Range/Units 10:24 Total Bilirubin 1.5 H (0.0-1.0) mg/dL Direct Bilirubin 0.4 (0.0-0.5) mg/dL AST 157 H (5-37) U/L ALT 186 H (0-40) U/L Alkaline Phosphatase 253 H (39-117) U/L Albumin 4.8 (3.5-5.0) g/dL All other labs normal. Imaging Abdominal ultrasound report/results: report reviewed and image reviewed Additional studies: labs reviewed Assessment and Plan (1) RUQ pain: Status: Acute Plan 64 year old male with PMH significant for CAD, NSTEMI in setting of cocaine use in 04/2023 s/p stenting, HTN, hyperlipidemia, nephrolithiasis presenting with acute onset RUQ pain with mild tenderness on exam and ABD US showing distended gallbladder without gallstones and mild wall thickening. Recommend obtaining HIDA scan to further evaluate for acute cholecystitis as he has no gallstones. Also with mildly elevated LFTs and mildly dilated CBD. If positive, will admit for laparoscopic cholecystectomy, possible open during this stay. Patient comfortable with plan. Procedures Date of Service Date of Service: 01/28/25
--- OUTSIDE RECORDS SUMMARY | 2025-01-28 13:51 | XMS_ITS | Patient Health Record ---
Author Organization [facility] Address [address] [place] [address] Care Team Providers Care Oil Field Pumper Name Role Phone Bernarda (RETIRED) Rolf BROWN Primary Care Prov ider Unavailable Tino Francisco Unavailable [phone] Reason For Referral No Information Plan Of Treatment No Information
--- OUTSIDE RECORDS SUMMARY | 2025-01-28 13:52 | XMS_ITS | Clinical Summary ---
Author Organization [facility] [address] [facility] Address [address] [place] [address] Phone Care Team Providers Care Interior Wirer Name Role Phone LavernPapo niñoannamarie URRUTIA Primary Care Provider [phone] Allergies Active Allergy Reactions Criticality Noted Date Comments Metoprolol Itching 03/11/2019 Nightmares Medications polyethylene glycol (Golytely) 236-22.74-6.74 -5.86 gram solution Take 4L by mouth once for one dose. May substitue any PEG. Starting at 6PM the night before your procedure drink 1 8oz glasses at your own pace until you complete half of the gallon. Finish 2nd half of the gallon 5 hours before your procedure. 4000 mL 5 Active bisacodyL (DULCOLAX) 5 mg EC tablet Take 2 tablets by mouth right before beginning bowel prep. See instructions provided by the office 2 tablet 5 Active aspirin 81 mg EC tablet Take 1 tablet (81 mg total) by mouth. Active atenoloL (TENORMIN) 50 mg tablet Active buPROPion XL (WELLBUTRIN XL) 150 mg 24 hr tablet Active clopidogreL (PLAVIX) 75 mg tablet Take 1 tablet (75 mg total) by mouth. 5 Active fluticasone propionate (FLONASE) 50 mcg/actuation nasal spray 5 Active lisinopriL (PRINIVIL,ZESTR IL) 5 mg tablet Take 1 tablet (5 mg total) by mouth. Active nitroglycerin (NITROSTAT) 0.4 mg SL tablet 5 Active Ozempic 0.25 mg or 0.5 mg (2 mg/3 mL) injection pen 5 Active sertraline (ZOLOFT) 100 mg tablet Active traZODone (DESYREL) 50 mg tablet Active methadone 10 mg/mL syringe Take 48 mg by mouth. Active atorvastatin (LIPITOR) 80 mg tablet Take 1 tablet (80 mg total) by mouth. 4 Active Surgical History Surgery Date Site/Laterality Comments OTHER [...] ankle - colchicine History of substance abuse ( [facility] V24, [facility] V28) 03/11/2019 DX:History of substance abus e ([facility]); COMMENT: Opiates. On Suboxone Hypercholesterolemia 03/11/2019 DX:Hypercho [...] Types Packs/Day Years Used Date Smoking Tobacco: Never Smokeless Tobacco: Never Tobacco Cessation:Counseling Given: Not Answered Alcohol Use Standard Drinks/Week Comments Yes 0 (1 standard drink = 0.6 oz pur e alcohol) RARE Interpersonal Safety Answer Date Record ed Physical Abuse Unrecognized value 07/08/2024 Verbal Abuse Unrecognized value 07/08/2024 Sex and Gender Information Value Date Recorded Sex Assigned at Not on file Legal Sex Male 5:00 AM EST Gender Identity Not on file Sexual Orientation Not on file Obstetrics History Last Filed Vital Signs Vital Sign Reading Time Taken Comments Blood Pressure 128/70 07/08/2024 4:37 PM EDT Pulse 75 07/08/2024 4:37 PM EDT Temperature 35.6 C (96 F) 07/08/2024 3:56 PM EDT Respiratory Rate 16 07/08/2024 4:37 PM EDT Oxygen Saturation 94% 07/08/2024 4:37 PM EDT Inhaled Oxygen Concentration - - Weight 125 kg (275 lb) 07/08/2024 3:56 PM EDT Height 170.2 cm (5' 7 ) 07/08/2024 3:56 PM EDT Body Mass Index 43.07 07/08/2024 3:56 PM EDT Plan of Treatment Health Maintenance Due Date Last Done Comments Diabetes: Annual GFR (Glomerular Filtration Rate) 1959 Diabetes: Annual Foot Exam 1969 Diabetes: Annual Retina Eye Exam 1969 Pneumococcal Vaccine: 50+ Years (1 of 1 - PCV) 2009 RSV Immunization Adult Patients (1 - Risk 50-74 years 1-dose series) 2009 Cholesterol Screening (Lipid Panel) 04/17/2023 Hepatitis C Screening 04/17/2023 Hypertension/CHF/CAD Annual BMP Blood Test 04/17/2023 Medicare Annual Wellness Visit 04/17/2023 Social Influencers of Health Screening 04/17/2023 Depression Screening 03/19/2024 Diabetes: Annual Urine Albumin-Creatinine Ratio (uACR) 07/09/2024 Diabetes: Blood Sugar Control Test (HGBA1C) 07/09/2024 COVID-19 Vaccine ( - season) 2024 08/17/2020 Influenza Vaccine (#1) 2024 4, 12/19/2021, 01/20/2021, Additional history exists Falls Risk Assessment 07/08/2025 07/08/2024 DTaP,Tdap,and Td Vaccines (4 - Td or Tdap) 03/28/2032 03/28/2022, 01/31/2012, 06/29/1997 Colorectal Cancer Screening: Colonoscopy 07/08/2034 07/08/2024 Zoster Vaccines Completed 12/20/2020, 07/15/2020 HIB Vaccines Aged Out No longer eligi [...] age to complete this topic Meningococcal B Vaccine Aged Out No l onger eligible based on patient's age to complete this topic RSV Immunization Patients Under 20 months Aged Out No longer eligible based on patient's age to complete this topic Varicella Vaccines Aged Out No longer eligible based on patient's age to complete this topic Medical Devices Implanted Type Area Lace Stripper Device Identifier Shelf Expiration Date Model / Serial / Lot Stents Stents N/A: Heart Description:STENT X 1 Procedures Procedure Name Priority Date/Time Associated Diagnosis Comments COLONOSCOPY Routine 07/08/2024 4:17 PM EDT Personal history of colon polyps, unspecified from Last 3 Months or Most Recently Relevant to Health Maintenance Results * COLONOSCOPY Anesthesia - MAC; [facility] ENDOSCOPY (07/08/2024 4:17 PM EDT) Anatomical Region Laterality Modality Endoscopy 07/08/2024 3:45 PM EDT Impressions 07/08/2024 4:19 PM EDT - One 12 mm polyp in the proximal sigmoid colon, removed with a hot snare. Resected and retrieved. - The examination was otherwise normal on direct and retroflexion views. Recommendation: - Await pathology results. - Repeat colonoscopy in 3 years for surveillance. - Resume Plavix (clopidogrel) at prior dose tomorrow. Narrative 07/08/2024 4:19 PM EDT [facility] Patient Name: Constantino Cardona Procedure Date: 07/08/2024 3:45 PM Date of : 1960 Age: 64 Room: ROOM 15 Gender: Male Note Status: Finalized Attending MD: Keith Portillo MD, Procedure Date No Time: 07/08/2024 Procedure: Colonoscopy Indications: High risk colon cancer surveillance: Personal history of colonic polyps Providers: Keith Portillo MD Referring MD: Keith Portillo MD Medicines: Propofol per Anesthesia Complications: No immediate complications. Estimated Blood Loss: Estimated blood loss: none. Procedure: Pre-Anesthesia Assessment: - ASA Grade Assessment: III - A patient with severe systemic disease. After I obtained informed consent, the scope was passed under direct vision. Throughout the procedure, the patient's blood pressure, pulse, and oxygen saturations were monitored continuously.The Colonoscope was introduced through the anus and advanced to the cecum, identified by appendiceal orifice and ileocecal valve. The colonoscopy was performed without difficulty. The patient tolerated the procedure well. The quality of the bowel preparation was adequate. Findings: The perianal and digital rectal examinations were normal. A 12 mm polyp was found in the proximal sigmoid colon. The polyp was sessile. The polyp was removed with a hot snare. Resection and retrieval were complete. The exam was otherwise without abnormality on direct and retroflexion views. Procedure Code(s): --- Professional --- 16396, Colonoscopy, flexible; with removal of tumor(s), polyp(s), or other lesion(s) by snare technique Diagnosis Code(s): --- Professional --- Z86.010, Personal history of colonic polyps D12.5, Benign neoplasm of sigmoid colon CPT copyright 2020 [employer]. All rights reserved. The codes documented in this report are preliminary and upon central sterile supply technician review may be revised to meet current compliance requirements. Keith Portillo MD 07/08/2024 4:19:23 PM This report has been signed electronically.Keith Portillo MD Number of Addenda: 0 Note Initiated On: 07/08/2024 3:45 PM Scope In: Scope Out: Endoscopy Department at [facility] - [address] [place] [id number] Procedure Note Keith Portillo MD - 07/08/2024 [facility] Patient Name: Constantino Cardona Procedure Date: 07/08/2024 3:45 PM Date of : 1960 Age: 64 Room: ROOM 15 Gender: Male Note Status: Finalized Attending MD: Keith Portillo MD, Procedure Date No Time: 07/08/2024 Procedure: Colonoscopy Indications: High risk colon cancer surveillance: Personalhistory of colonic polyps Providers: Keith Portillo MD Referring MD: Keith Portillo MD Medicines: Propofol per Anesthesia Complications: No immediate complications. Estimated Blood Loss: Estimated blood loss: none. Procedure: Pre-Anesthesia Assessment: - ASA Grade Assessment: III - A patient with severe systemic disease. After I obtained informed consent, the scope was passed under direct vision. Throughout theprocedure, the patient's blood pressure, pulse, and oxygen saturations were monitored continuously.The Colonoscope was introduced through the anus and advanced to the cecum, identified by appendiceal orifice and ileocecal valve. The colonoscopy was performed without difficulty. The patient tolerated the procedure well. The quality of the bowel preparation was adequate. Findings: The perianal and digital rectal examinations were normal. A 12 mm polyp was found in the proximal sigmoidcolon. The polyp was sessile. The polyp was removed with a hot snare. Resection and retrieval were complete. The exam was otherwise without abnormality ondirect and retroflexion views. Procedure Code(s): --- Professional --- 51961, Colonoscopy, flexible; with removal of tumor(s), polyp(s), or other lesion(s) by snare technique Diagnosis Code(s): --- Professional --- Z86.010, Personal history of colonic polyps D12.5, Benign neoplasm of sigmoid colon CPT copyright 2020 [employer]. All rights reserved. The codes documented in this report are preliminary and upon central sterile supply technician reviewmay be revised to meet current compliance requirements. Keith Portillo MD 07/08/2024 4:19:23 PM This report has been signed electronically.Keith Portillo MD Number of Addenda: 0 Note Initiated On: 07/08/2024 3:45 PM Scope In: Scope Out: Endoscopy Department at [facility] - [address] [place] [phone] IMPRESSION: - One 12 mm polyp in the proximal sigmoid colon, removed with a hot snare. Resected and retrieved. - The examination was otherwise normal on directand retroflexion views. Recommendation: - Await pathology results. - Repeat colonoscopy in 3 years for surveillance. - Resume Plavix (clopidogrel) at prior dosetomorrow. Keith Portillo MD GI~PROCEDURE ORDERABLES Fin al Result from Last 3 Months or Most Recently Relevant to Health Maintenance Insurance MEDICAID - [place] MEDICARE Care Teams Interior Wirer Relationship Specialty Start Date End Date Marquita Puckett NP [address] [facility] [place] [id number] PCP - General Nurse Practitioner 04/09/24
--- NOTE | 2025-01-28 14:21 | PC.NURSE ---
Pt transported to [employer] [facility] for HIDA scan.
--- NOTE | 2025-01-28 15:55 | HO.NURTONUR ---
Pt is a 64yo M with hx CAD, NSTEMI, HTN, Kid stones that came to ED with c/o RUQ abd pain x3days. Denies n/v. Labs remarkable for elevated LFTs. Abd US +distended gallbladder. Pt is getting a HIDA scan prior to admission. No gallstones were evident, pending results of HIDA, pt will have lap radha. Pt ambulates independently. Afebrile. VSS. Clear BBS. NPO since 01/28 @0700. Received toradol and morphine in ED for pain management. 20gLFA. NAD noted.
[2025-01-28 16:00] VITALS: BP 170/86; PULSE 85; RESP 18; TEMP 37.2; O2SAT 94
--- NOTE | 2025-01-28 16:28 | MHC.EDTECH ---
This tech took over care of pt at 1515, rounds and vitals completed, Patient refused to change into hospital attire, pt stated I will change when I get upstairs RN was made aware.
--- NOTE | 2025-01-28 16:44 | PHA.MEDREC ---
Addendum entered by Brian Nielsen RPh 01/28/25 16:51: Med rec reviewed Addendum entered by Samantha Gamez 01/28/25 16:46: Pt takes Vitamin B-12 QD and Beet tablet QD but doesn't know dose of them at this time. Original Note: Pharmacy Consult ? Medication Reconciliation Pharmacy has completed the medication reconciliation. Spoke with pt and he confirmed his medications. Pt confirmed he takes Flonase nasal spray 2 sprays BID and Ozempic once a week on Fridays and took it last 01/23.
[2025-01-28] MEDS: 0.9 % Sodium Chloride Flush 3 ML SYRINGE IVFLUSH (16:50)
[2025-01-28 16:53] VITALS: BP 133/86; PULSE 87; RESP 16; O2SAT 96
[2025-01-28 18:10] VITALS: BMI 38.8
[2025-01-28 18:17] VITALS: BP 137/74; PULSE 90; RESP 18; TEMP 36.6; O2SAT 96
[2025-01-28] MEDS: oxyCODONE HCl Immed Release 5 MG TABLET PO (18:33)
[2025-01-28] MEDS: Lactated Ringers 1,000 ML 80 ML IVCONT (18:33)
[2025-01-29 04:00] VITALS: BP 157/78; PULSE 87; RESP 18; TEMP 36.3; O2SAT 94
[2025-01-29] MEDS: oxyCODONE HCl Immed Release 5 MG TABLET PO ×3 (05:00→23:30)
[2025-01-29 06:30] LABS: Alanine Aminotransferase 203 U/L (0-40); Albumin Level 4.2 g/dL (3.5-5.0); Alkaline Phosphatase 230 U/L (39-117); Anion Gap 15 (12-20); Aspartate Amino Transferase 168 U/L (5-37); Blood Urea Nitrogen 17 mg/dL (9-16); Calcium 9.3 mg/dL (8.4-10.2); Carbon Dioxide 28 mmol/L (22-29); Chloride 102 mmol/L (96-108); Creatinine Clr Calc Pharmacy 74.0; Estimated Glomerular Filt Rate 59; Potassium 4.2 mmol/L (3.3-5.1); Sodium 141 mmol/L (135-145); Total Protein 7.0 g/dL (6.5-8.0)
[2025-01-29 07:45] VITALS: BP 145/71; PULSE 80; RESP 18; TEMP 36.2; O2SAT 95
--- NOTE | 2025-01-29 07:48 | P.PNGS_ITS ---
Subjective Subjective Date of Service: 01/29/25 <Vidhi Green PA-C - Last Filed: 01/29/25 07:50> 01/29/25 <Alex Walsh MD - Last Filed: 01/29/25 10:30> Interval history: Has continued RUQ pain this morning. Denies improvement. <Vidhi Green PA-C - Last Filed: 01/29/25 07:50> Physical Exam 2 Vital Signs: Vital Signs: Last Vital Signs Temp 97.1 F 01/29/25 07:45 Pulse 80 01/29/25 07:45 Resp 18 01/29/25 07:45 BP 145/71 H 01/29/25 07:45 Pulse Ox 95 01/29/25 07:45 O2 Del Method Room Air 01/29/25 07:45 BMI result Body Mass Index 38.8 <Vidhi Green PA-C - Last Filed: 01/29/25 07:50> Const: General: comfortable, no acute distress and alert <Vidhi Green PA-C - Last Filed: 01/29/25 07:50> Orientation/consciousness: patient oriented x3 <Vidhi Green PA-C - Last Filed: 01/29/25 07:50> Resp: Effort & Inspection: normal respiratory effort <Vidhi Green PA-C - Last Filed: 01/29/25 07:50> GI: Other: soft very mild right sided tenderness nondistended <Vidhi Green PA-C - Last Filed: 01/29/25 07:50> Palpation (GI): no guarding and not rigid <Vidhi Green PA-C - Last Filed: 01/29/25 07:50> Skin: General skin exam: no rashes or lesions noted <PATRICIA Sagastume Last Filed: 01/29/25 07:50> Neuro: General: patient oriented x3 and moves all extremities <PATRICIA Sagastume Last Filed: 01/29/25 07:50> Objective Data Active Medications Acetaminophen (Acetaminophen 325 Mg Tablet) 650 mg PO Q6H PRN PRN Reason: Pain, Mild 1-3,fever,headache Calcium Carbonate (Calcium Carbonate 750 Mg Tab.Chew) 750 mg PO Q4H PRN PRN Reason: Heartburn Docusate Sodium (Docusate Sodium 100 Mg Capsule) 100 mg PO BID [facility] Last Admin: 01/28/25 21:09 Dose: 100 mg Documented By: STACI Hydromorphone HCl (Hydromorphone Hcl 1 Mg/Ml Syringe) 0.5 mg IVPUSH Q4H PRN; Protocol PRN Reason: Pain, Severe (Pain Scale 7-10) Last Admin: 01/29/25 01:05 Dose: 0.5 mg Documented By: STACI Lactated Ringer's (Lr) 1,000 mls @ 80 mls/hr IVCONT .[id number] [facility] Last Admin: 01/29/25 06:09 Dose: Not Given Documented By: STACI Non-Admin Reason: IV Running Piperacillin Sod/Tazobactam (Sod 3.375 gm/ Sodium Chloride) 50 mls @ 100 mls/hr IV Q6H [facility] Last Infusion: 01/29/25 05:33 Dose: Infused Documented By: STACI Influenza Virus Vaccine (Flu Vacc [id number](6mo Up)/Pf 0.5 Ml Syringe) 0.5 ml IM .ONCE ONE Stop: 01/29/25 09:01 Magnesium Hydroxide (Milk Of Magnesia 30 Ml Oral.Susp) 30 ml PO DAILY PRN PRN Reason: Constipation Melatonin (Melatonin 3 Mg Tablet) 6 mg PO BEDTIME PRN PRN Reason: Insomnia Last Admin: 01/28/25 21:09 Dose: 6 mg Documented By: STACI Ondansetron HCl (Ondansetron Hcl 4 Mg/2 Ml Vial) 4 mg IVPUSH Q8H PRN PRN Reason: Nausea and Vomiting Oxycodone HCl (Oxycodone Hcl Immed Release 5 Mg Tablet) 5 mg PO Q6H PRN PRN Reason: Pain, Moderate(Pain Scale 4-6) Last Admin: 01/29/25 05:00 Dose: 5 mg Documented By: STACI Sodium Chloride (0.9 % Sodium Chloride Flush 3 Ml Syringe) 3 ml IVFLUSH QSHIFT [facility] Last Admin: 01/29/25 00:22 Dose: Not Given Documented By: STACI Non-Admin Reason: IV Running <Vidhi Peter, PA-C - Last Filed: 01/29/25 07:50> Labs CBC & Chem 7: 01/28/25 10:24 01/29/25 05:32 <Vidhi Green PA-C - Last Filed: 01/29/25 07:50> Labs: Laboratory Results - last 24 hr 01/28/25 01/29/25 10:24 05:32 MCV 86.0 MCH 29.0 MCHC 33.7 RDW 13.7 Plt Count 206 MPV 10.3 Immature Gran % (Auto) 0.8 H Neut % (Auto) 79.2 H Lymph % (Auto) 11.1 L Gila % (Auto) 7.1 Eos % (Auto) 1.4 Baso % (Auto) 0.4 Lymph # (Auto) 0.9 L Gila # (Auto) 0.6 Eos # (Auto) 0.1 Baso # (Auto) 0.0 Abs Immat Gran (auto) 0.07 H Absolute Neuts (auto) 6.6 Absolute Nucleated RBC 0.000 Nucleated RBC % (auto) 0.0 Anion Gap 15 15 Estim Creat Clear Calc 80.5 74.0 Estimated GFR > 60 59 Random Glucose 166 H 121 H Calcium 9.9 9.3 D Magnesium 1.9 Total Bilirubin 1.5 H 1.5 H Direct Bilirubin 0.4 AST 157 H 168 H ALT 186 H 203 H Alkaline Phosphatase 253 H 230 H Troponin I High Sens < 2.7 Total Protein 7.9 7.0 Albumin 4.8 4.2 Lipase 19 <Vidhi Green PA-C - Last Filed: 01/29/25 07:50> Procedures Date of Service Date of Service: 01/29/25 <Vidhi Green PA-C - Last Filed: 01/29/25 07:50> 01/29/25 <Alex Walsh MD - Last Filed: 01/29/25 10:30> Progress Note: A&P Assessment and plan (1) Elevated liver enzymes: Status: Acute <Vidih Green PA-C - Last Filed: 01/29/25 07:50> Assessment and Plan: Admitted with RUQ pain, concern for acute cholecystitis. HIDA performed as he had no gallstones, showed visualization of the GB and CBD. Negative for acute cholecystitis. LFTs remain elevated. Will obtain hepatitis serology. Advance diet to solids. Patient comfortable with plan. <Vidhi Green PA-C - Last Filed: 01/29/25 07:50> Admitted with RUQ pain, concern for acute cholecystitis. HIDA performed as he had no gallstones, showed visualization of the GB and CBD. Negative for acute cholecystitis. LFTs remain elevated. Will obtain hepatitis serology. Advance diet to solids. Patient comfortable with plan. Patient seen and examined and agree with the above assessment. HIDA scan does show visualization of the gallbladder. Unable to perform gallbladder emptying due to patient's discomfort during the procedure. Patient is a start diet today. Agree with check of hepatitis panel. <Alex Walsh MD - Last Filed: 01/29/25 10:30> Time Spent With Patient Time: Total time managing care of this patient today ____ minutes. <Vidhi Green PA-C - Last Filed: 01/29/25 07:50> Quality Stroke Does the patient have a stroke diagnosis?: No <Vidhi Green PA-C - Last Filed: 01/29/25 07:50> VTE Prior VTE?: No <Vidhi Green PA-C - Last Filed: 01/29/25 07:50> VTE Risk Level:: Surgical - moderate <Vidhi Green PA-C - Last Filed: 01/29/25 07:50> VTE Device Contraindication: N/A - Device Ordered <Vidhi Green PA-C - Last Filed: 01/29/25 07:50> VTE Drug Contraindication: Treatment Not Indicated <Vidhi Green PA-C - Last Filed: 01/29/25 07:50>
[2025-01-29] MEDS: Lactated Ringers 1,000 ML 80 ML IVCONT ×2 (08:00→21:13)
[2025-01-29] MEDS: 0.9 % Sodium Chloride Flush 3 ML SYRINGE IVFLUSH (08:04)
[2025-01-29 09:31] LABS: HBS Num1 0.00 mIU/mL (0-7.99); HBc Num1 0.11 S/CO (0.00-0.79); HBsAGNum1 0.40 S/CO (0.00-0.99); Hepatitis A Antibody IgM 0.27 Index (0-0.79); Hepatitis B Surface Antigen Negative (Negative); ~HepC Num1 0.08 S/CO (0.00-0.79); ~Hepatitis A Antibody IgM Nonreactive (Nonreactive); ~Hepatitis B Surface Antibody NONREACTIVE (Nonreactive); ~Hepatitis C Antibody Nonreactive (Nonreactive)
--- NOTE | 2025-01-29 09:50 | PM.CNCAR ---
History of Present Illness History of Present Illness Date of Service: 01/29/25 Requesting physician: Vidhi Green Consult reason: pre-op evaluation Chief complaint: acute cholecystitis Narrative: I was consulted to see chest her in cardiology consultation today for preoperative cardiovascular evaluation given his prior history of CAD. Patient is 64-year-old male, says he had stent in 2011 after cocaine use and following that in 2023 in April had recurrent chest pain after using cocaine and subsequently diagnose with myocardial infarction and required RCA stenting at that point time. He is currently on long-term Plavix therapy as he could not tolerate aspirin therapy as an antiplatelet agent. He is taking all his medications regularly. He has been very active and has no exertional symptoms of chest pain or shortness of breath. He takes his medications religiously. Came to the hospital with right upper quadrant pain and diagnose with acute cholecystitis for which she needs to undergo urgent surgery. Patient has no active cardiac symptoms. He did have evaluation with troponin yesterday because of his symptoms and there was negative. He has no acute EKGs changes. He denies any recent cardiac symptoms. Review of Systems Constitutional: Constitutional: Reports malaise Eyes: Eyes: Reports no additional eye complaints Cardiovascular: Cardiovascular: Reports no additional cardiovascular complaints Respiratory: Respiratory: Reports no additional respiratory complaints Gastrointestinal: Gastrointestinal: Reports abdominal pain Genitourinary: Genitourinary: Reports no additional male genitourinary complaints Musculoskeletal: Musculoskeletal: Reports no additional musculoskeletal complaints Integumentary/Breasts: Skin/Breast: Reports system reviewed and no additional complaints, except as docu Psychiatric: Psychiatric: Reports no additional psychiatric complaints Endocrine: Endocrine: Reports no additional endocrine complaints Hematologic/Lymphatic: Hematologic/Lymphatic: Reports no additional hematologic/lymphatic complaints [facility] Past Medical History Medical History Anxiety Depression Hyperlipidemia Morbid obesity BMI 40.0-44.9, adult Noncompliance NSTEMI (non-ST elevated myocardial infarction) Atherosclerotic cardiovascular disease Myocardial infarct Substance abuse Renal colic High cholesterol Hypertension Family History Family History Mother No problems noted. Father No problems noted. Surgical History Surgical History Hx of colonoscopy Social History Social History Alcohol intake: current Alcohol intake frequency: a few times a month Alcohol type: beer Patient Tobacco Use Status: Former Tobacco user Substance Use Type: Crack/Cocaine and Heroin Currently Displaying Signs/Symptoms of Drug Intoxication Withdrawal: No Do you feel safe in your current relationship?: No Current Relationship Advance Directives: No Advance Directives Information Provided: No Do you have a plan to hurt others: No Plan Recently lost weight without trying: No Poor oral hygiene: No Meds Allergies Allergy/AdvReac Type Severity Reaction Status Date / Time No Known Allergies Allergy Verified 01/28/25 10:11 Active Medications: Current Medications Acetaminophen (Acetaminophen 325 Mg Tablet) 650 mg PO Q6H PRN PRN Reason: Pain, Mild 1-3,fever,headache Calcium Carbonate (Calcium Carbonate 750 Mg Tab.Chew) 750 mg PO Q4H PRN PRN Reason: Heartburn Docusate Sodium (Docusate Sodium 100 Mg Capsule) 100 mg PO BID [facility] Last Admin: 01/29/25 08:04 Dose: Not Given Hydromorphone HCl (Hydromorphone Hcl 1 Mg/Ml Syringe) 0.5 mg IVPUSH Q4H PRN; Protocol PRN Reason: Pain, Severe (Pain Scale 7-10) Last Admin: 01/29/25 08:13 Dose: 0.5 mg Lactated Ringer's (Lr) 1,000 mls @ 80 mls/hr IVCONT .[id number] [facility] Last Admin: 01/29/25 08:00 Dose: 80 mls/hr Piperacillin Sod/Tazobactam (Sod 3.375 gm/ Sodium Chloride) 50 mls @ 100 mls/hr IV Q6H [facility] Last Infusion: 01/29/25 05:33 Dose: Infused Magnesium Hydroxide (Milk Of Magnesia 30 Ml Oral.Susp) 30 ml PO DAILY PRN PRN Reason: Constipation Melatonin (Melatonin 3 Mg Tablet) 6 mg PO BEDTIME PRN PRN Reason: Insomnia Last Admin: 01/28/25 21:09 Dose: 6 mg Ondansetron HCl (Ondansetron Hcl 4 Mg/2 Ml Vial) 4 mg IVPUSH Q8H PRN PRN Reason: Nausea and Vomiting Oxycodone HCl (Oxycodone Hcl Immed Release 5 Mg Tablet) 5 mg PO Q6H PRN PRN Reason: Pain, Moderate(Pain Scale 4-6) Last Admin: 01/29/25 05:00 Dose: 5 mg Sodium Chloride (0.9 % Sodium Chloride Flush 3 Ml Syringe) [facility] Last Admin: 01/29/25 08:04 Dose: 3 ml Home Medications ?Medication ?Instructions ?Recorded ?Confirmed ?Last Taken ?Type atenolol 50 mg tablet 75 mg PO DAILY 06/13/23 01/28/25 01/28/25 History atorvastatin 80 mg tablet 80 mg PO BEDTIME 06/13/23 01/28/25 01/27/25 History bupropion HCl 150 mg 24 hr tablet, 150 mg PO DAILY 06/13/23 01/28/25 01/28/25 History extended release sertraline 100 mg tablet 100 mg PO DAILY 06/13/23 01/28/25 01/28/25 History fluticasone propionate 50 2 spray intranasal BID 01/28/25 01/28/25 01/28/25 History mcg/actuation nasal spray,suspension multivitamin 1 tab PO DAILY 01/28/25 01/28/25 01/28/25 History semaglutide 0.25 mg or 0.5 mg (2 2 mg subcut FR 01/28/25 01/28/25 01/23/25 History mg/3 mL) subcutaneous pen injector (Ozempic) Physical Exam Vital Signs: Vital Signs: Last Vital Signs Temp 97.1 F 01/29/25 07:45 Pulse 80 01/29/25 07:45 Resp 18 01/29/25 07:45 BP 145/71 H 01/29/25 07:45 Pulse Ox 95 01/29/25 07:45 O2 Del Method Room Air 01/29/25 07:45 BMI result Body Mass Index 38.8 Const: General: cooperative, comfortable, no acute distress, alert, awake and Physically active Nutritional Appearance: obese Orientation/consciousness: patient oriented x3 HEENT: Head: Yes normocephalic and Yes atraumatic Neck: Neck: Yes trachea midline, Yes supple and Yes no JVD Resp: Effort & Inspection: normal respiratory effort Auscultation: clear to auscultation bilaterally Cardio: Jugular venous distension: no JVD Rate: regular rate Rhythm: regular rhythm Heart sounds: S1 normal heart sound present, S2 normal heart sound present, no click, no gallops, no murmurs and no rubs GI: Auscultation: normal bowel sounds Skin: General skin exam: no rashes or lesions noted Neuro: General: patient oriented x3 and no focal motor deficits Extrem: General: Yes no clubbing, cyanosis or edema Objective Labs and Meds 01/28/25 10:24 01/29/25 05:32 Lab results: Laboratory Results - last 24 hr 01/28/25 01/29/25 10:24 05:32 WBC 8.3 RBC 5.35 D Hgb 15.5 D Hct 46.0 D MCV 86.0 MCH 29.0 MCHC 33.7 RDW 13.7 Plt Count 206 MPV 10.3 Immature Gran % (Auto) 0.8 H Neut % (Auto) 79.2 H Lymph % (Auto) 11.1 L [place]ett % (Auto) 7.1 Eos % (Auto) 1.4 Baso % (Auto) 0.4 Lymph # (Auto) 0.9 L [place] # (Auto) 0.6 Eos # (Auto) 0.1 Baso # (Auto) 0.0 Abs Immat Gran (auto) 0.07 H Absolute Neuts (auto) 6.6 Absolute Nucleated RBC 0.000 Nucleated RBC % (auto) 0.0 Sodium 138 141 Potassium 4.2 4.2 Chloride 101 102 Carbon Dioxide 26 28 Anion Gap 15 15 BUN 15 17 H Creatinine 1.12 1.23 Estim Creat Clear Calc 80.5 74.0 Estimated GFR > 60 59 Random Glucose 166 H 121 H Calcium 9.9 9.3 D Magnesium 1.9 Total Bilirubin 1.5 H 1.5 H Direct Bilirubin 0.4 AST 157 H 168 H ALT 186 H 203 H Alkaline Phosphatase 253 H 230 H Troponin I High Sens < 2.7 Total Protein 7.9 7.0 Albumin 4.8 4.2 Lipase 19 EKGs on admission showed normal sinus rhythm with normal EKGs Imaging Radiologist's impression: Impressions Abdomen Ultrasound 01/28/25 10:32 IMPRESSION: Distended gallbladder. No gallstones seen. Positive sonographic Laughlin's sign and minimally thickened gallbladder wall. Acalculous cholecystitis should be considered. No intrahepatic biliary duct dilatation. Poorly visualized but slightly dilated common bile duct measuring 9 mm. Consider follow-up HIDA scan or MRCP. Slightly enlarged echogenic liver. Hypoechoic areas adjacent to the gallbladder, question focal fatty sparing versus reactive changes in the liver related to gallbladder disease. This could be further assessed at time of MRI as well. Electronically signed by: Sidra Gil MD 01/28/2025 11:04 AM EST RP Chest X-Ray 01/28/25 11:15 IMPRESSION: Chronic interstitial lung disease without acute airspace disease. Electronically signed by: David Pulliam MD 01/28/2025 11:22 AM EST RP Hepatobiliary Scan Nuclear Medicine 01/28/25 14:02 IMPRESSION: Normal hepatobiliary scan. Electronically signed by: Jose Enrique Prabhakar MD 01/29/2025 07:02 AM EST RP Assessment and Plan (1) Preoperative cardiovascular examination: Status: Acute Preoperative cardiovascular risk stratification this elderly gentleman with prior CAD with no recent cardiac symptoms. Acute cholecystitis tell me for which presents to hospital with acute cholecystitis and needs to undergo laparoscopic surgery under general anesthesia. He currently has no active cardiac symptoms and has been pretty functional in the recent past without having any active cardiac symptoms. At this point time he is currently optimized to undergo surgery with low to intermediate risk for perioperative cardiovascular morbidity mortality. His Plavix can be withheld prior to surgery although with limited benefit as usually still will have antiplatelet activity for few days after withholding it. However I would resume it as soon as possible after surgery. He has not had risk of stent stent is greater than 1 year. Continue all his medications in the perioperative time. Will sign of the case. Thank you for allowing me to partake in his care Procedures Date of Service Date of Service: 01/29/25
--- NOTE | 2025-01-29 09:56 | MHC.CM.PN ---
[facility] DELIVERED PT LIVES ALONE AND IS FUNCTIONALLY INDEPENDENT. NO SERVICES OR DME. PT DECLINES COMPLETING A HCP AT THIS TIME BUT WILL THINK ABOUT IT FOR THE FUTURE. PCP JASMIN ARAYA [employer] DP: HOME, NO SERVICES ANTICIPATED. PT HAS CAR IN LOT OR CAN FIND A RIDE IF NEEDED. CM WILL CONTINUE TO FOLLOW FOR ANY CHANGE TO DC PLAN/NEEDS.
[2025-01-29 13:16] VITALS: BP 158/79; PULSE 89
[2025-01-29 13:52] VITALS: PULSE 88
[2025-01-29 15:23] VITALS: BP 136/84; PULSE 89; RESP 18; TEMP 36.1; O2SAT 95
[2025-01-29] MEDS: iohexoL 350 MG/ML 100 ML INFUS..BTL 85 ML IV (15:56)
[2025-01-29 19:01] VITALS: BP 146/88; PULSE 99; RESP 18; TEMP 36.2; O2SAT 99
--- NOTE | 2025-01-29 23:41 | PC.NURSE ---
Patient complaining of pain and requested to have his IV Dilaudid and when asked what his pain level was he said a 5. This RN explained to patient he is allowed to get Oxycodone at this time according to the MAR pain scale and he started to get loud and yelling that little pill isn't going to do anything, I was told I could get Dilaudid no matter what . Patient then said, well my pain is whatever it takes to get the Dilaudid . This RN explained to the patient it doesn't work like that but patient kept going back & forth. He eventually decided to take the oxycodone and said I guess I'll wait until my pain gets worse to get the IV one .
[2025-01-30 04:00] VITALS: BP 140/72; PULSE 97; RESP 18; TEMP 36.3; O2SAT 96
[2025-01-30 07:42] VITALS: BP 170/89; PULSE 87
[2025-01-30 07:49] VITALS: PULSE 88; RESP 14; TEMP 36.7; O2SAT 96
[2025-01-30 07:51] LABS: Alanine Aminotransferase 135 U/L (0-40); Albumin Level 4.3 g/dL (3.5-5.0); Alkaline Phosphatase 186 U/L (39-117); Aspartate Amino Transferase 63 U/L (5-37); Total Protein 7.0 g/dL (6.5-8.0)
--- NOTE | 2025-01-30 08:27 | PM.PNGS ---
Subjective Subjective Date of Service: 01/30/25 Interval history: He reports feeling significantly improved this morning. Very minimal RUQ abd pain. He would like to go home. Physical Exam Vital Signs: Vital Signs: Last Vital Signs Temp 98.0 F 01/30/25 07:49 Pulse 88 01/30/25 07:49 Resp 14 01/30/25 07:49 BP 170/89 H 01/30/25 07:42 Pulse Ox 96 01/30/25 07:49 O2 Del Method Room Air 01/30/25 07:49 BMI result Body Mass Index 38.8 Const: General: comfortable, no acute distress and alert Orientation/consciousness: patient oriented x3 Resp: Effort & Inspection: normal respiratory effort and able to speak in complete sentences GI: Other: abd soft, nondistended very mild right lateral abd tenderness, none in RUQ negative solomon sign Palpation (GI): no guarding Percussion: Yes normal to percussion Skin: General skin exam: no rashes or lesions noted and no jaundice Neuro: General: patient oriented x3 and moves all extremities Objective Data Active Medications Acetaminophen (Acetaminophen 325 Mg Tablet) 650 mg PO Q6H PRN PRN Reason: Pain, Mild 1-3,fever,headache Atenolol (Atenolol 25 Mg Tablet) 75 mg PO DAILY [facility]; Protocol Last Admin: 01/30/25 07:42 Dose: 75 mg Documented By: CLARITA Atorvastatin Calcium (Atorvastatin Calcium 80 Mg Tablet) 80 mg PO BEDTIME [facility] Last Admin: 01/29/25 21:08 Dose: 80 mg Documented By: STACI Calcium Carbonate (Calcium Carbonate 750 Mg Tab.Chew) 750 mg PO Q4H PRN PRN Reason: Heartburn Docusate Sodium (Docusate Sodium 100 Mg Capsule) 100 mg PO BID [facility] Last Admin: 01/30/25 07:43 Dose: 100 mg Documented By: CLARITA Fluticasone Propionate (Fluticasone Propionate Nasal 16 Gm Bruin) 2 spray NOSTRIL-B BID [facility] Last Admin: 01/30/25 07:44 Dose: 2 spray Documented By: CLARITA Hydromorphone HCl (Hydromorphone Hcl 1 Mg/Ml Syringe) 0.5 mg IVPUSH Q3H PRN; Protocol PRN Reason: Pain, Severe (Pain Scale 7-10) Last Admin: 01/30/25 02:12 Dose: 0.5 mg Documented By: STACI Lactated Ringer's (Lr) 1,000 mls @ 80 mls/hr IVCONT .[id number] [facility] Last Admin: 01/30/25 06:04 Dose: Not Given Documented By: STACI Non-Admin Reason: IV Running Piperacillin Sod/Tazobactam (Sod 3.375 gm/ Sodium Chloride) 50 mls @ 100 mls/hr IV Q6H [facility] Last Infusion: 01/30/25 06:03 Dose: Infused Documented By: STACI Magnesium Hydroxide (Milk Of Magnesia 30 Ml Oral.Susp) 30 ml PO DAILY PRN PRN Reason: Constipation Melatonin (Melatonin 3 Mg Tablet) 6 mg PO BEDTIME PRN PRN Reason: Insomnia Last Admin: 01/29/25 21:12 Dose: 6 mg Documented By: STACI Nitroglycerin (Nitroglycerin 0.4 Mg Tab.Subl) 0.4 mg SUBLINGUAL Q5M PRN PRN Reason: Chest Pain Ondansetron HCl (Ondansetron Hcl 4 Mg/2 Ml Vial) 4 mg IVPUSH Q8H PRN PRN Reason: Nausea and Vomiting Oxycodone HCl (Oxycodone Hcl Immed Release 5 Mg Tablet) 5 mg PO Q6H PRN PRN Reason: Pain, Moderate(Pain Scale 4-6) Last Admin: 01/29/25 23:30 Dose: 5 mg Documented By: STACI Sertraline HCl (Sertraline Hcl 100 Mg Tablet) 100 mg PO DAILY [facility] Last Admin: 01/30/25 07:43 Dose: 100 mg Documented By: CLARITA Sodium Chloride (0.9 % Sodium Chloride Flush 3 Ml Syringe) 3 ml IVFLUSH QSHIFT [facility] Last Admin: 01/30/25 07:44 Dose: Not Given Documented By: CLARITA Non-Admin Reason: IV Running Labs 01/28/25 10:24 01/29/25 05:32 Labs: Laboratory Results - last 24 hr 01/29/25 01/30/25 07:54 07:14 Hold Purple Top SEE NOTE Total Bilirubin 1.3 H Direct Bilirubin 0.4 AST 63 H ALT 135 H Alkaline Phosphatase 186 H Total Protein 7.0 Albumin 4.3 Hepatitis A IgM Ab Nonreactive Hep Bs Antigen Negative Hep Bs Antibody NONREACTIVE Hep B Core Total Ab Nonreactive Hepatitis C Ab (EIA) Nonreactive Procedures Date of Service Date of Service: 01/30/25 Progress Note: A&P Assessment and plan (1) Elevated liver enzymes: Status: Acute Plan CT yesterday showed dilated CBD to 1.5cm with enlarged peripancreatic lymph nodes. MRI with and without contrast was recommended. He feels improved this morning and RUQ nearly resolved. He was able to sleep last night. Abd remains benign and soft, negative solomon sign, very mild right lateral abd tenderness. We discussed options including MRI while he is inpatient or since his LFTs are downtrending and he feels improved he can f/u with his PCP and have the MRI done as an outpatient. He would like to go home. He is clinically appearing well and tolerating a solid diet. Stable for dc to home with f/u with his PCP and outpatient MRI. Patient comfortable with plan all questions answered. Time Spent With Patient Time: Total time managing care of this patient today ____ minutes. Quality Stroke Does the patient have a stroke diagnosis?: No VTE Prior VTE?: No VTE Risk Level:: Surgical - moderate VTE Device Contraindication: N/A - Device Ordered VTE Drug Contraindication: Treatment Not Indicated
--- NOTE | 2025-01-30 08:37 | MHC.CM.PN ---
PT CLEARED TO DC HOME TODAY WITH NO SERVICES VIA SELF TRANSPORT
[2025-01-30 09:50] VITALS: BP 149/75; PULSE 70; RESP 13; TEMP 36.4; O2SAT 95
--- NOTE | 2025-01-30 13:01 | P.DS_ITS ---
DS: Providers Provider Date of Service: 01/30/25 Date of admission: 01/28/25 15:13 Date of discharge: 01/30/25 Primary care physician: Marquita Puckett NP Attending physician on admission: Alex Walsh Consults: 01/28/25 16:37 Consult to Cardiology Routine Consulting Provider: [facility] Reason for consultation: acute cholecystitis, hx of RCA stenting with RPDA angioplasty 2023, plavix Attending physician on discharge: Phuc Vega DS: Diagnosis Discharge Diagnosis (1) Elevated liver enzymes: Status: Acute DS: Summary Hospital Course Hospital Course: HPI AT ADMISSION: 64 year old male with PMH significant for CAD, NSTEMI in setting of cocaine use in 04/2023 s/p stenting, HTN, hyperlipidemia, nephrolithiasis presenting with complaints of RUQ abdominal pain. He reports he felt generally unwell on Sunday night and when he awoke Sunday morning he had RUQ pain. The pain has been constant and sharp in nature. It remains moderate in severity. He called his PCP who instructed him to come to the ED for evaluation. Work up in the ED included CBC, BMP, LFTs which were significant for mildly elev ated LFTs with t bili of 1.5, AST/ALT 157/186. No leukocytosis. ABD US was performed which showed a distended gallbladder without gallstones with very mild thickening without pericholecystic fluid, CBD mildly dilated. He reports the pain is somewhat improved now. He was able to eat toast this morning without worsening in his pain. He denies fevers, chills, nausea, vomiting, diarrhea, chest pain, shortness of breath. He denies prior abd surgery. He reports occasional ETOH use. He has history of cocaine and opioid use but reports he has been clean. HOSPITAL COURSE: His abdomen was benign, he had mild tenderness on the right lateral. HIDA scan was obtained to further evaluate for acalculous acute cholecystitis as he has no gallstones. He however did not tolerate this well and was unable to receive CCK and finish the second half of the HIDA. He was admitted for observation for his continued severe pain. HIDA scan showed normal hepatic uptake without focal defect and cystic duct and gallbladder as well as small bowel were visualized going against acute cholecystitis. He however had continued severe RUQ pain and his LFTs remained elevated. Hepatitis serology was ordered which were nonreactive. Given his continued pain, CT scan abd/pelvis was obtained which showed distended gallbladder, dilated CBD without evidence of stone as well as enlarged peripancreatitic lymph nodes and f/u MRI with and without contrast was recommended. The following morning he felt improved with minimal pain. He was clinically appearing well. His abdomen remained very benign with negative solomon sign and very mild right lateral tenderness. He was tolerating a solid diet. He felt ready for discharge. He was discharged to home on 01/30/25. MRI with/without contrast was ordered for 1 week as an outpatient. He was instructed to f/u with his PCP regarding his elevated LFTs and MRI results. Time Attestation Discharge Coordination Time (in mins): 25 Quality: Safe Use of Opioids Does Pt have an Active Cancer Diagnosis on the Problem List?: No Quality: Stroke Does the patient have a stroke diagnosis?: No Physical Exam Vital Signs: Vital Signs: Last Vital Signs Temp 97.6 F 01/30/25 09:50 Pulse 70 01/30/25 09:50 Resp 13 01/30/25 09:50 BP 149/75 H 01/30/25 09:50 Pulse Ox 95 01/30/25 09:50 O2 Del Method Room Air 01/30/25 09:50 BMI result Body Mass Index 38.8 Const: General: comfortable, no acute distress and alert Orientation/consciousness: patient oriented x3 Resp: Effort & Inspection: normal respiratory effort GI: Other: protuberant abdomen very mild tenderness right lateral abdomen negative solomon sign Palpation (GI): no guarding Skin: General skin exam: no rashes or lesions noted and no jaundice Neuro: General: patient oriented x3 DS: Data Data Completed and Pending Labs on day of discharge: Laboratory Results - last 24 hr 01/30/25 07:14 Hold Purple Top SEE NOTE Total Bilirubin 1.3 H Direct Bilirubin 0.4 AST 63 H ALT 135 H Alkaline Phosphatase 186 H Total Protein 7.0 Albumin 4.3 Discharge Plan Discharge Anticipated Discharge Date/Time: 01/30/25 08:23 Patient Disposition: Home, Self-Care Discharge Diagnosis: RUQ pain, elevated LFTs Referrals: Marquita Puckett [employer]ING [employer]ING [employer]PERATOR [Primary Care Provider, Internal Medicine] - 1 Week Discharge Medications: Continued nitroglycerin 0.4 mg tablet, sublingual 0.4 mg sublingual Q5M PRN (Reason: chest pain) Qty: 30 5RF Rx Instructions: do not exceed 3 doses per episode clopidogrel 75 mg tablet 75 mg PO DAILY Qty: 90 3RF fluticasone propionate 50 mcg/actuation spray,suspension 2 spray intranasal BID Ozempic 0.25 mg or 0.5 mg (2 mg/3 mL) pen injector 2 mg SUBCUT FR multivitamin Tablet 1 tab PO DAILY atorvastatin 80 mg tablet 80 mg PO BEDTIME bupropion HCl 150 mg tablet extended release 24 hr 150 mg PO DAILY sertraline 100 mg tablet 100 mg PO DAILY atenolol 50 mg tablet 75 mg PO DAILY Discharge Orders: Discharge Order (Routine); Ordered 01/30/25 Ordered By: Vidhi Green Diet: Advance to usual diet Activity on Discharge: As tolerated Stand Alone Forms: Patient Portal Discharge page Print Language: Divehi Other Ambulatory Orders: MR abdomen wo/w con (Routine) Timeframe: 1 Week Facility: [facility] - Location: MRI Ordered By: Vidhi Green Activity Restrictions/Additional Instructions: Return to baseline health and resume normal activities. Care Plan Goals: Return to baseline health and resume normal activities following recovery period. Health Concerns: RUQ pain elevated LFTs, dilated common bile duct and enlarged peripancreatitic lymph nodes hx of AL and stenting on plavix Plan of Treatment: HIDA negative for acute cholecystitis Diet as tolerated F/u liver enzymes Outpatient MRI with and without contrast to further evaluate biliary tree Assessment: Improved Discharge Date/Time: 01/30/25 10:29
== END 2025-01-30 10:29 | disposition home or self-care (01) | DRG 446 ==
LOC: HO.ED 12:31 → HO.EDOVER 15:13 → HO.S3 15:48
PROVIDERS: Physician Assistant Medical; Admitting Provider Physician Assistant Surgical; Emergency Provider Emergency Medicine; PCP Nurse Practitioner Family; Visit Provider Physician Assistant Surgical
DX: K81.0 Acute cholecystitis (principal); I25.10 Atherosclerotic heart disease of native coronary artery without angina pectoris; R79.89 Other specified abnormal findings of blood chemistry; Z95.5 Presence of coronary angioplasty implant and graft; Z79.51 Long term (current) use of inhaled steroids; Z79.02 Long term (current) use of antithrombotics/antiplatelets; Z79.899 Other long term (current) drug therapy
CPT/HCPCS: 36415; 71046; 74177; 76705; 78226; 80048; 80053; 80076; 83690; 83735; 84484; 85025; 86704; 86706; 86709; 86803; 87340; 93005; 99285; A9537; J1171; J1885; J2270; J2543; J7120; Q9967

== ENCOUNTER → 2025-01-28 10:10 | Outpatient (BNV) | payer MEDICARE, MEDICAID, SELFPAY | PROVIDERS: Emergency Provider Emergency Medicine; PCP Nurse Practitioner Family; Visit Provider Internal Medicine Cardiovascular Disease | DX: R10.9 Unspecified abdominal pain (principal) | CPT/HCPCS: 93010 ==

== ENCOUNTER → 2025-01-28 10:13 | Outpatient (BNV) | payer MEDICARE, MEDICAID, SELFPAY | PROVIDERS: Emergency Provider Emergency Medicine; PCP Nurse Practitioner Family; Visit Provider Radiology Diagnostic Radiology | DX: K82.8 Other specified diseases of gallbladder (principal) | CPT/HCPCS: 71046; 76705; 78226 ==

== ENCOUNTER → 2025-01-28 11:12 | Outpatient (BNV) | payer OTHER, MEDICAID, SELFPAY | PROVIDERS: Emergency Provider Emergency Medicine; PCP Nurse Practitioner Family; Visit Provider Physician Assistant Surgical | DX: R74.01 Elevation of levels of liver transaminase levels (principal) | CPT/HCPCS: 99222; 99232; 99238; 99499 ==

== ENCOUNTER 2025-01-28 15:13 | Outpatient (BNV) | payer OTHER, MEDICAID, SELFPAY | END 2025-01-29 15:57 | PROVIDERS: Admitting Provider Physician Assistant Surgical; Emergency Provider Emergency Medicine; PCP Nurse Practitioner Family; Visit Provider Radiology Diagnostic Radiology | DX: K57.30 Diverticulosis of large intestine without perforation or abscess without bleeding (principal); N20.0 Calculus of kidney; K82.8 Other specified diseases of gallbladder; K83.8 Other specified diseases of biliary tract | CPT/HCPCS: 74177 ==

== ENCOUNTER → 2025-01-28 15:13 | Outpatient (BNV) | payer OTHER, MEDICAID, SELFPAY | PROVIDERS: Admitting Provider Physician Assistant Surgical; Emergency Provider Emergency Medicine; PCP Nurse Practitioner Family; Visit Provider Internal Medicine Cardiovascular Disease | DX: Z01.810 Encounter for preprocedural cardiovascular examination (principal) | CPT/HCPCS: 99222 ==

== ENCOUNTER 2025-02-23 13:02 | Outpatient (AMB) | payer OTHER, MEDICAID, SELFPAY ==
--- NOTE | 2025-02-23 13:10 | MHC.OFFVIS ---
Vital Signs 02/23/25 13:11 Height 5 ft 8 in Weight 253 lb 8.505 oz BMI 38.5 BP 140/78 H Blood Pressure Location Lt brachial Position Sitting Pulse 71 Pulse Source Pulse Oximeter Intake Visit Reasons: 6 month f/up rs from 12/10 Allergies No Known Allergies Allergy (Verified 01/28/25 10:11) Medication List - Last Reconciled 02/23/25 by PALMER Ron atenolol 75 mg PO DAILY atorvastatin 80 mg PO BEDTIME bupropion HCl XL 150 mg PO DAILY clopidogrel 75 mg PO DAILY fluticasone propionate 50 mcg/actuation 2 sprays intranasal BID multivitamin 1 tab PO DAILY nitroglycerin 0.4 mg sublingual Q5M PRN sertraline 100 mg PO DAILY HPI HPI 6 month f/up rs from 12/10: Details: The patient is a 65 year old male presenting for followup of coronary artery disease. He has a history of a nonST-elevation myocardial infarction in 2023 associated with cocaine use, for which he underwent cardiac catheterization with stenting of the right coronary artery and angioplasty of the right posterior descending artery. His other past medical history includes hypertension, hyperlipidemia, morbid obesity, and substance abuse. He denies a history of diabetes. An echocardiogram in November 2023 showed an ejection fraction of 58% with moderate calcification of the aortic valve and mild mitral annular calcification. A nuclear stress test from 02/07/2024 revealed mild basal inferior ischemia with an ejection fraction of 60% and was managed medically as he had no clear anginal symptoms at that time. Currently, he reports intermittent vague chest discomfort that can occur at rest and is not associated with exertion. The discomfort is relieved promptly with one or sometimes two doses of sublingual nitroglycerin. He denies any breathing troubles, racing heart, dizziness, or feeling faint but notes intermittent leg swelling that resolves within a day or two. He was recently seen in the emergency room on 01/28/2025 for right upper quadrant discomfort, where no cardiac issues were identified. His current medications include clopidogrel, atenolol, atorvastatin, and PRN nitroglycerin; he is no longer taking aspirin. He reports taking B6, B12, and folic acid, which has improved his energy levels. . He had been taking Ozempic for weight loss but stopped due to side effects, including a loss of appetite for 11 days. . [facility] Medical History Anxiety Depression Hyperlipidemia Morbid obesity BMI 40.0-44.9, adult Noncompliance NSTEMI (non-ST elevated myocardial infarction) Atherosclerotic cardiovascular disease Myocardial infarct Substance abuse Renal colic High cholesterol Hypertension Surgical History Hx of colonoscopy Family History Mother No problems noted. Father No problems noted. Social History Alcohol intake: current Alcohol intake frequency: a few times a month Alcohol type: beer Patient Tobacco Use Status: Former Tobacco user Substance Use Type: Crack/Cocaine and Heroin service: No Review of Systems Const All systems reviewed & are unremarkable except as noted in HPI and below Denies weakness ENT Denies dizziness Card Denies chest pain, Denies chest pain with activity, Denies syncope, Denies rapid heart rate, Denies pedal edema, Denies edema, Denies leg edema, Denies lightheadedness, Denies palpitations, Denies dyspnea, Denies dyspnea on exertion and Denies orthopnea Resp Denies cough, Denies dyspnea and Denies dyspnea on exertion GI Denies hematochezia and Denies change in stool character Musc Denies abnormal gait, Denies muscle cramps, Denies muscle weakness, Denies numbness, Denies radiating pain into limb and Denies tingling Neuro Denies abnormal gait, Denies dizziness, Denies syncope, Denies numbness, Denies tingling and Denies weakness Endo Denies palpitations Physical Exam Vital Signs: Last Vital Signs Pulse 71 02/23/25 13:11 BP 140/78 H 02/23/25 13:11 BMI result Body Mass Index 38.5 Const Other: Obese General: cooperative, healthy appearing, comfortable and no acute distress Orientation/consciousness: patient oriented x3 Neck Neck: Yes normal visual inspection Resp Effort & Inspection: normal respiratory effort Auscultation: clear to auscultation bilaterally, no rales, no rhonchi and no wheezes Cardio Rate: regular rate Rhythm: regular rhythm Heart sounds: S1 normal heart sound present, S2 normal heart sound present, no gallops, no murmurs and no rubs Peripheral pulses: Peripheral pulses 2+ throughout Neuro General: patient oriented x3 Extrem General: Yes normal to inspection and No no pedal edema Psych Appearance: grossly normal Mental Status: mental status grossly normal Speech and movement: Normal speech and movement present Assessment & Plan Assessment & Plan (1) Atherosclerotic cardiovascular disease: Code(s): I25.10 - Atherosclerotic heart disease of [place] coronary artery without angina pectoris Category: Medical Plan: History of CAD with stent in the 1st diagonal. NSTEMI 04/2023 with PCI of the RCA and angioplasty to the right PDA. Nuclear stress test done in follow-up shows a mild intensity basal inferior ischemia managed medically. Does report intermittent vague nonexertional chest discomfort for which he takes PRN nitroglycerin. No exertional symptoms. Continue clopidogrel as single antiplatelet agent. Continue atenolol. Continue atorvastatin with ideal LDL goal less than 70. Signs and symptoms of angina discussed. Cardiology follow-up 6 months, sooner if needed (2) S/P cardiac cath: Comment: 05/15/2023 stent in the 1st diagonal, poor runoff, moderate risk, distal LAD 80% stenosis, low risk, left circumflex mild diffuse disease, right PDA 85% stenosis, moderate risk, balloon angioplasty to the right PDA with stent placement. Small diagonal vessel treatment deferred. Code(s): Z98.890 - Other specified postprocedural states Category: Surgical (3) Hypertension: Code(s): I10 - Essential (primary) hypertension Category: Medical Plan: Blood pressure goal less than 130/80. Elevated today. Recheck done by me 150/78. He declines further medication. He will have this checked by his PCP in the near future. Reviewed low-salt diet. (4) Hyperlipidemia: Code(s): E78.5 - Hyperlipidemia, unspecified Category: Medical Plan: Post LDL goal less than 70. He is due for updated lipid profile. Continue high-dose atorvastatin. Discussed weight loss and increasing physical activity. Plan I discussed the patient's elevated blood pressure reading of 150/82 mmHg with him, noting it was higher than desired. The patient indicated he was not interested in adding any more medications for his blood pressure at this time. We agreed to continue his current medication regimen without changes. I reinforced the importance of lifestyle modifications, including staying physically active, continuing weight loss efforts, and avoiding added salt in his diet, to help manage his blood pressure. I advised a follow-up appointment in six months for cardiology, with instructions to return sooner if any new issues or concerns arise. Patient Instructions: - Continue taking your current medications, including atenolol, clopidogrel and atorvastatin, as prescribed. - For chest pain, you can use the nitroglycerin pill under your tongue as needed, max of 3. - If your symptom of chest discomfort changes, worsens, or occurs with activity, let us know, or go to ED. - To help control your blood pressure and leg swelling, continue to stay physically active, work on losing weight, and avoid adding salt to your food. - Your follow-up appointment is in six months. - If you have any new or worsening problems, please call our office to be seen sooner. Patient was informed and verbally consented to the use of an ambient scribe for clinic note documentation during this visit. Visit time spent on chart review, interview, assessment, orders, documentation. Coding Level of Care Code Est Pt Level 4 (19141) Complex visit Add On G2211 Diagnoses Atherosclerotic cardiovascular disease I25.10 S/P cardiac cath Z98.890 Hypertension I10 Hyperlipidemia E78.5 Time Spent (min) 28
[2025-02-23 13:11] VITALS: BP 140/78; PULSE 71; BMI 38.5
== END 2025-02-23 13:29 | disposition home or self-care (01) ==
LOC: HO.HCS 13:03
PROVIDERS: PCP Nurse Practitioner Family; Visit Provider Nurse Practitioner Family
DX: I25.10 Atherosclerotic heart disease of native coronary artery without angina pectoris (principal); Z98.890 Other specified postprocedural states; I10 Essential (primary) hypertension; E78.5 Hyperlipidemia, unspecified
CPT/HCPCS: 99214; G2211

== ENCOUNTER → 2025-02-23 13:02 | Outpatient (BNVA) | payer OTHER, MEDICAID, SELFPAY | PROVIDERS: PCP Nurse Practitioner Family; Visit Provider Nurse Practitioner Family | DX: I25.10 Atherosclerotic heart disease of native coronary artery without angina pectoris (principal); I10 Essential (primary) hypertension; E78.5 Hyperlipidemia, unspecified | CPT/HCPCS: 99212 ==